=== PATIENT | female | born 1955 | race Hispanic/Latino ===

== ENCOUNTER 2017-12-19 13:27 | Emergency (ER) | payer OTHER ==
[2017-12-19] MEDS ORDERED: Sodium Chloride 0.9% 500 ML IV ONE (15:16)
[2017-12-19] MEDS ORDERED: Sodium Chloride 0.9% 1,000 ML ONE (15:25)
[2017-12-19 15:45] LABS: BASO # 0.1 K/uL (0.0-0.2); BASO % 0.5 % (0.0-2.0); EOS % 0.2 % (0.0-4.0); HEMOGLOBIN 15.7 g/dL (11.0-16.0); LYMPH # 1.9 K/uL (1.0-4.3); LYMPH % 12.7 % (20.0-40.0); MEAN CELL VOLUME 85.4 fL (81.0-99.0); MEAN CORPUSCULAR HEMOGLOBIN 29.1 pg (27.0-31.0); MEAN CORPUSCULAR HGB CONC 34.1 g/dL (33.0-37.0); MEAN PLATELET VOLUME 7.8 fL (7.2-11.7); MONO # 0.7 K/uL (0.0-0.8); MONO % 4.8 % (0.0-10.0); NEUT # 12.1 K/uL (1.8-7.0); NEUT % 81.8 % (50.0-75.0); NRBC % 0.1 % (0.0-2.0); RBC 5.4 Mil/uL (3.80-5.20); RED CELL DISTRIBUTION WIDTH 13.3 % (11.5-14.5)
[2017-12-19 15:47] LABS: WHITE BLOOD COUNT 14.8 K/uL (4.8-10.8)
[2017-12-19 16:08] LABS: SQUAMOUS EPITHIAL 4 /hpf (0-5); URINE BACTERIA MOD (<OCC); URINE BILIRUBIN NEGATIVE (NEGATIVE); URINE BLOOD NEGATIVE (NEGATIVE); URINE CLARITY Hazy (Clear); URINE GLUCOSE (UA) NORMAL (Normal); URINE LEUKOCYTE ESTERASE TRACE Leu/uL (Negative); URINE NITRATE NEGATIVE (NEGATIVE); URINE PROTEIN 2+ mg/dL (NEGATIVE); URINE UROBILINOGEN NORMAL mg/dL (0.2-1.0)
[2017-12-19 16:12] LABS: ALB/GLOB RATIO 1.3 (1.0-2.1); ALBUMIN 4.3 g/dL (3.5-5.0); ALT/SGPT 29 U/L (9-52); AST/SGOT 28 U/L (14-36); BLOOD UREA NITROGEN 16 mg/dL (7-17); CALCIUM 9.8 mg/dl (8.6-10.4); GFR AFRICAN-AMERICAN > 60; GFR NON-AFRICAN AMERICAN > 60; LIPASE 246 U/L (23-300)
[2017-12-19 16:15] LABS: URINE COLOR YELLOW (YELLOW)
[2017-12-19 17:06] VITALS: BP 131/70; PULSE 82; RESP 20; TEMP 99
[2017-12-19 17:07] VITALS: O2SAT 97
--- NOTE | 2017-12-19 17:07 | C.PDOC ---
History Of Present Illness 62 year old female presents to the ER with complaints of three episodes of nausea, vomiting, and diarrhea each. The patient is denies any abdominal pain, fever, dysuria, and has no known sick contact. Time Seen by Provider: 12/19/17 15:15 Chief Complaint (Nursing): GI Problem History Per: Patient History/Exam Limitations: no limitations Onset/Duration Of Symptoms: Intermittent Episodes (3) Current Symptoms Are (Timing): Better Severity: Mild Quality Of Discomfort: "Pain" (abdominal pain) Associated Symptoms: Nausea, Vomiting, Diarrhea. denies: Urinary Symptoms ( dysuria) Additional History Per: Patient Past Medical History Reviewed: Historical Data, Nursing Documentation, Vital Signs Vital Signs: Last Vital Signs Temp 99 F 12/19/17 17:05 Pulse 82 12/19/17 17:05 Resp 20 12/19/17 17:05 BP 131/70 12/19/17 17:05 Pulse Ox 97 12/19/17 18:24 - Medical History PMH: No Chronic Diseases Surgical History: No Surg Hx Family History: States: No Known Family Hx - Social History Hx Tobacco Use: Yes Hx Alcohol Use: Yes Hx Substance Use: No - Immunization History Hx Tetanus Toxoid Vaccination: No Hx Influenza Vaccination: No Hx Pneumococcal Vaccination: No Review Of Systems Except As Marked, All Systems Reviewed And Found Negative. Constitutional: Negative for: Fever Gastrointestinal: Positive for: Nausea, Vomiting, Diarrhea. Negative for: Abdominal Pain Genitourinary: Negative for: Dysuria Physical Exam - Physical Exam Appears: Other (Mildly uncomfortable) Skin: Normal Color Head: Normacephalic Oral Mucosa: Moist (moist mucous membrane) Cardiovascular: Rhythm Regular Respiratory: Normal Breath Sounds Gastrointestinal/Abdominal: Soft, Tenderness (mild epigastrium tenderness ), No Guarding, No Rebound ED Course And Treatment - Laboratory Results Result Diagrams: 12/19/17 15:41 12/19/17 15:41 O2 Sat by Pulse Oximetry: 97 (RA) Progress Note: Labs reviewed within normal limits, was also administered IV fluids. Patient reported feeling better and is stable for discharge home. Disposition Counseled Patient/Family Regarding: Studies Performed, Diagnosis, Need For Followup, Rx Given - Disposition Referrals: Jaime Woo MD [Staff Provider] - Disposition: HOME/ ROUTINE Disposition Time: 17:05 Condition: STABLE Additional Instructions: FOLLOW UP WITH YOUR DOCTOR IN 1-2 DAYS DRINK PLENTY OF CLEAR FLUIDS USE MEDICATIONS NEEDED RETURN TO ER IF SYMPTOMS WORSEN Prescriptions: Dicyclomine [Bentyl] 20 mg PO Q6 PRN #12 tab PRN Reason: ABDOMINAL CRAMPING Ondansetron [Zofran Odt] 4 mg PO Q8 PRN #10 odt PRN Reason: Nausea/Vomiting Instructions: Viral Gastroenteritis Forms: [employer] (Dutch) Print Language: SAMI - POA Present On Arrival: None - Clinical Impression Clinical Impression: Gastroenteritis - Scribe Statement The provider has reviewed the documentation as recorded by the Neo Pedroza Thelma Provider Attestation: All medical record entries made by the Neo were at my direction and personally dictated by me. I have reviewed the chart and agree that the record accurately reflects my personal performance of the history, physical exam, medical decision making, and the department course for this patient. I have also personally directed, reviewed, and agree with the discharge instructions and disposition.
== END 2017-12-19 17:12 | disposition home or self-care (01) ==
LOC: C.ER 13:27
DX: K52.9 Noninfective gastroenteritis and colitis, unspecified (principal)
CPT/HCPCS: 80053; 81001; 83690; 85025; 96361; 96374; 99284; J2405; J7040

== ENCOUNTER 2017-12-20 18:58 | Inpatient (IN) | payer OTHER ==
--- NOTE | 2017-12-20 19:37 | C.PDOC ---
History Of Present Illness Patient seen here yesterday for similar complaints. Has continued to have emesis and some abdominal pain , unrelieved with zofran. Not tolerating PO. No f /c. Dull, cramping abdominal discomfort Time Seen by Provider: 12/20/17 19:37 Chief Complaint (Nursing): Abdominal Pain History Per: Patient History/Exam Limitations: no limitations Onset/Duration Of Symptoms: Days Current Symptoms Are (Timing): Still Present Context: Food Severity: Moderate Pain Scale Rating Of: 4 Location Of Pain/Discomfort: Diffuse Radiation Of Pain To:: None Quality Of Discomfort: Dull, Cramping Associated Symptoms: Nausea, Vomiting. denies: Fever, Chills, Diarrhea Exacerbating Factors: Food Alleviating Factors: None Last Bowel Movement: Today Recent travel outside of the [place]: No Additional History Per: Patient Past Medical History Reviewed: Historical Data, Nursing Documentation, Vital Signs Vital Signs: Last Vital Signs Temp 97.3 F L 12/20/17 19:05 Pulse 107 H 12/20/17 21:14 Resp 24 12/20/17 21:14 BP 157/71 H 12/20/17 21:14 Pulse Ox 98 12/20/17 22:56 Family History: States: No Known Family Hx - Social History Hx Tobacco Use: Yes Hx Alcohol Use: No Hx Substance Use: No - Immunization History Hx Tetanus Toxoid Vaccination: No Hx Influenza Vaccination: No Hx Pneumococcal Vaccination: No Review Of Systems Constitutional: Negative for: Fever, Chills ENT: Negative for: Throat Pain Cardiovascular: Negative for: Chest Pain Respiratory: Negative for: Shortness of Breath Gastrointestinal: Positive for: Nausea, Vomiting, Abdominal Pain Genitourinary: Negative for: Dysuria Musculoskeletal: Negative for: Back Pain Skin: Negative for: Rash Neurological: Negative for: Weakness Psych: Negative for: Anxiety Physical Exam - Physical Exam Appears: Non-toxic Skin: Warm, Dry Oral Mucosa: Dry Neck: Supple Chest: Symmetrical Cardiovascular: Rhythm Regular Respiratory: No Rales, No Rhonchi, No Wheezing Gastrointestinal/Abdominal: Soft, Tenderness, Distention (mild), No Guarding, No Rebound Back: No CVA Tenderness Extremity: Normal ROM Extremity: Bilateral: Atraumatic Neurological/Psych: Oriented x3 Gait: Steady ED Course And Treatment - Laboratory Results Result Diagrams: 12/20/17 19:57 12/20/17 19:57 ECG: Interpreted By Me, Viewed By Me ECG Rhythm: Sinus Rhythm (64), Nonspecific Changes O2 Sat by Pulse Oximetry: 98 Pulse Ox Interpretation: Normal - CT Scan/US CT A/P Other Rad Studies (CT/US): Read By Radiologist, Radiology Report Reviewed CT/US Interpretation: IMPRESSION: Free intraperitoneal air suggest perforated hollow viscus; ascites in the abdomen and. pelvis; gastroenterocolitis; multiple hepatic cysts; possible left adnexal mass Progress Note: 11pm called the surgical assistant . will come and see the ot in the ed. spoke with the pt regarding her diagnosis and posible need for surgery Critical Care Time - Critical Care Note Total Time (in mins): 30 Documented critical care: time excludes all time spent performing seperately billable procedures. Disposition Discussed With Dr.: Luciano Patten Comment: accepted the pt onhis service and took over the care at 11:30 PM Doctor Will See Patient In The: ED Counseled Patient/Family Regarding: Studies Performed, Diagnosis - Disposition Disposition: HOSPITALIZED Disposition Time: 19:37 Condition: GUARDED Forms: [employer] (Armenian) - POA Present On Arrival: Poor Glycemic Control - Clinical Impression Clinical Impression: Abdominal pain, Nausea, Vomiting, Ascites, Perforated abdominal viscus Decision To Admit - Pt Status Changed To: Hospital Disposition Of: Inpatient - Admit Certification Admit to Inpatient:: After my assessment, the patient will require hospitalization for at least two midnights. This is because of the severity of symptoms shown, intensity of services needed, and/or the medical risk in this patient being treated as an outpatient. - InPatient: Physician Admission Certification:: After my assessment, the patient will require hospitalization for at least two midnights. This is because of the severity of symptoms shown, intensity of services needed, and/or the medical risk in this patient being treated as an outpatient. - . Bed Request Type: Regular Admitting Physician: Luciano Patten Patient Diagnosis: Abdominal pain, Nausea, Vomiting, Ascites, Perforated abdominal viscus
[2017-12-20] MEDS ORDERED: Sodium Chloride 0.9% 2,000 ML IV ONE (19:53)
[2017-12-20 20:02] LABS: BASO # 0.1 K/uL (0.0-0.2); BASO % 0.4 % (0.0-2.0); EOS # 0.1 K/uL (0.0-0.7); EOS % 0.2 % (0.0-4.0); HEMOGLOBIN 15.6 g/dL (11.0-16.0); LYMPH # 1.6 K/uL (1.0-4.3); MEAN CELL VOLUME 85.7 fL (81.0-99.0); MEAN CORPUSCULAR HEMOGLOBIN 28.6 pg (27.0-31.0); MEAN CORPUSCULAR HGB CONC 33.3 g/dL (33.0-37.0); MEAN PLATELET VOLUME 8.1 fL (7.2-11.7); MONO # 1.3 K/uL (0.0-0.8); MONO % 5.6 % (0.0-10.0); NEUT # 20.4 K/uL (1.8-7.0); NEUT % 86.8 % (50.0-75.0); NRBC % 0.1 % (0.0-2.0); PLATELET COUNT 289 K/uL (130-400); RBC 5.47 Mil/uL (3.80-5.20); RED CELL DISTRIBUTION WIDTH 13.5 % (11.5-14.5); WHITE BLOOD COUNT 23.5 K/uL (4.8-10.8)
[2017-12-20] MEDS ORDERED: metroNIDAZOLE IV 500 mg/100 ml 500 MG/100 ML BAG ONE (20:14)
[2017-12-20] MEDS ORDERED: metroNIDAZOLE IV 500 mg/100 ml 500 MG/100 ML BAG IVPB SCH (20:15)
[2017-12-20 20:18] LABS: ALB/GLOB RATIO 1.2 (1.0-2.1); ALBUMIN 4.4 g/dL (3.5-5.0); ALT/SGPT 24 U/L (9-52); AST/SGOT 24 U/L (14-36); BLOOD UREA NITROGEN 35 mg/dL (7-17); CALCIUM 9.8 mg/dl (8.6-10.4); GFR AFRICAN-AMERICAN > 60; GFR NON-AFRICAN AMERICAN 56; LIPASE 44 U/L (23-300)
[2017-12-20] MEDS ORDERED: Iodixanol 320 MG/ML 100 ML BOTTLE IV ONE (20:21)
[2017-12-20 20:36] LABS: VENOUS BLOOD GAS BASE EXCESS 9.2 mmol/L (0.0-2.0); VENOUS BLOOD GAS PCO2 64 mmHg (40-60); VENOUS BLOOD GAS PO2 22 mm/Hg (30-55); VENOUS BLOOD PH 7.37 (7.32-7.43)
[2017-12-20] MEDS ORDERED: Sodium Chloride 0.9% 1,000 ML IV ONE (20:43)
[2017-12-20] MEDS ORDERED: Vancomycin 1 GM 1 GM/250 ML BAG IVPB SCH (20:45)
[2017-12-20] MEDS ORDERED: Vancomycin 1 gm/NS 200 ml 1 GM/200 ML BAG IVPB ONE (21:00)
[2017-12-20 21:28] LABS: LYMPHOCYTE 13 % (20-40); MONOCYTE 2 % (0-10); NEUTROPHIL 85 % (50-75); PLATELET ESTIMATE NORMAL (NORMAL); TOTAL CELLS COUNTED 100
--- NOTE | 2017-12-20 22:52 | CT ---
EXAM: CT Abdomen and Pelvis With Intravenous Contrast EXAM DATE/TIME: 12/20/2017 7:54 PM CLINICAL HISTORY: 62 years old, female; Pain; Abdominal pain; Flank; Right upper quadrant (ruq); Additional info: Abd pain TECHNIQUE: Axial computed tomography images of the abdomen and pelvis with intravenous contrast. All CT scans at this facility use one or more dose reduction techniques, viz.: automated exposure control; ma/kV adjustment per patient size (including targeted exams where dose is matched to indication; i.e. head); or iterative reconstruction technique. Coronal and sagittal reformatted images were created and reviewed. CONTRAST: 100 mL of visipaque 320 administered intravenously. COMPARISON: There are no prior studies for comparison. FINDINGS: Lower thorax: heart size is normal. There is moderate sized hiatal hernia. There is atelectasis and scarring at the lung bases. ABDOMEN: Liver: There are multiple low-attenuation lesions throughout the liver. Largest are consistent with cysts. Smaller lesions are too small to characterize. Gallbladder and bile ducts: Gallbladder is partially distended. Common duct is dilated, although the millimeters in diameter. There is tapering at the pancreas. Pancreas: There is mild prominence of pancreatic head relative to the body and tail of the pancreas. There is prominence of the distal pancreatic duct, report 6 mm in diameter. Spleen: unremarkable Adrenals: unremarkable Kidneys and ureters: Left kidney is in the expected flank location. The right kidney is in the low flank. Stomach and bowel: Stomach is partially distended with an air-fluid level. There is enhancement of the gastric wall. There are mildly prominent. Gastric vessels. There is antral and proximal duodenal wall and fold thickening. Rotation is normal. Diffuse small bowel wall and fold thickening. There is terminal ileal wall and fold thickening. Appendix is unremarkable. There is asymmetric colonic wall thickening. There is diverticulosis. Appendix: See stomach and bowel PELVIS: Bladder: The bladder is almost empty. Uterus is unremarkable. There is prominence of the left with possible adnexal mass.Vascular structures are unremarkable. Reproductive: See above. ABDOMEN and PELVIS: Intraperitoneal space: There is ascites in the abdomen and pelvis. There is free intraperitoneal air in the upper abdomen. Bones/joints: There are no acute osseous abnormalities. Soft tissues: unremarkable Vasculature: See above. Lymph nodes: There is no pathologic adenopathy. IMPRESSION: Free intraperitoneal air suggest perforated hollow viscus; ascites in the abdomen and pelvis; gastroenterocolitis; multiple hepatic cysts; possible left adnexal mass Additional nonemergent findings as described above.
[2017-12-20] MEDS ORDERED: Sodium Chloride 0.9% 1,000 ML IV SCH (23:45)
[2017-12-20] MEDS ORDERED: Morphine 4 MG/ML VIAL IVP PRN (23:56)
--- NOTE | 2017-12-21 00:08 | CP.PCM.HP ---
History of Present Illness - History of Present Illness History of Present Illness: Surgery H&P- Dr. Patten 62F pmhx of duodenal ulcers presents to [facility] ED w/ abdominal pain, nausea, and vomiting for 1 day. patient has not had abd pain like this before. no alleviating symptoms. Subjective fevers, no chills. Denies change in urinary habits, bright red blood per rectum, sudden unexplained weight loss or weight gain, diarrhea, recent sick contacts PMH: dudodenal ulcers PSH: bilateral brest biopsy (benign) ALL: PCN SocialHx: Tobacco use 1/2 ppd for > 30 years, occasional ETOH, denies recreational drug use Present on Admission - Present on Admission Any Indicators Present on Admission: No Review of Systems - Review of Systems All systems: reviewed and no additional remarkable complaints except - Constitutional Constitutional: As Per HPI Past Patient History - Past Social History Smoking Status: Light Smoker < 10 Cigarettes Daily - PSYCHIATRIC Hx Substance Use: No - SURGICAL HISTORY Hx Surgeries: Yes Hx Breast Biopsy: Yes - ANESTHESIA Hx Anesthesia: Yes Hx Anesthesia Reactions: No Hx Malignant Hyperthermia: No Meds Allergies/Adverse Reactions: Allergies Allergy/AdvReac Type Severity Reaction Status Date / Time Penicillins Allergy Verified 12/20/17 19:18 Physical Exam - Constitutional Appears: Non-toxic, No Acute Distress - Head Exam Head Exam: ATRAUMATIC - Eye Exam Eye Exam: EOMI. absent: Scleral icterus - ENT Exam ENT Exam: Mucous Membranes Moist - Respiratory Exam Respiratory Exam: NORMAL BREATHING PATTERN. absent: Accessory Muscle Use, Respiratory Distress - Cardiovascular Exam Cardiovascular Exam: +S1, +S2. absent: Bradycardia, Tachycardia - GI/Abdominal Exam GI & Abdominal Exam: Distended, Firm, Guarding, Rigid, Tenderness. absent: Hernia - Neurological Exam Neurological exam: Alert, Oriented x3 - Skin Skin Exam: Intact, Warm Results - Vital Signs Recent Vital Signs: Last Vital Signs Temp 97.3 F L 12/20/17 19:05 Pulse 107 H 12/20/17 21:14 Resp 24 12/20/17 21:14 BP 157/71 H 12/20/17 21:14 Pulse Ox 98 12/20/17 23:49 - Labs Result Diagrams: 12/20/17 19:57 12/20/17 19:57 Labs: Laboratory Results - last 24 hr 12/20/17 12/20/17 12/20/17 19:57 19:57 20:32 WBC 23.5 H D RBC 5.47 H Hgb 15.6 Hct 46.9 MCV 85.7 MCH 28.6 MCHC 33.3 RDW 13.5 Plt Count 289 MPV 8.1 Neut % (Auto) 86.8 H Lymph % (Auto) 7.0 L [place] % (Auto) 5.6 Eos % (Auto) 0.2 Baso % (Auto) 0.4 Neut # (Auto) 20.4 H Lymph # (Auto) 1.6 [place] # (Auto) 1.3 H Eos # (Auto) 0.1 Baso # (Auto) 0.1 Neutrophils % (Manual) 85 H Lymphocytes % (Manual) 13 L Monocytes % (Manual) 2 Platelet Estimate Normal pO2 22 L VBG pH 7.37 VBG pCO2 64 H VBG HCO3 30.4 VBG Total CO2 39.0 H VBG O2 Sat (Calc) 28.0 L VBG Base Excess 9.2 H VBG Potassium 2.3 L* Glucose 285 H Lactate 5.5 H* Crit Value Called To Dr. holcomb Crit Value Called By Arjun christiansen Crit Value Read Back Y Blood Gas Notified Time 2035 Sodium 137 141.0 Potassium 2.6 L Chloride 86 L 93.0 L Carbon Dioxide 29 Anion Gap 24 H BUN 35 H Creatinine 1.0 Est GFR ( Amer) > 60 Est GFR (Non-Af Amer) 56 Random Glucose 260 H Calcium 9.8 Total Bilirubin 0.5 AST 24 ALT 24 Alkaline Phosphatase 74 Total Protein 7.9 Albumin 4.4 Globulin 3.5 Albumin/Globulin Ratio 1.2 Lipase 44 Venous Blood Potassium 2.3 L* Assessment & Plan - Assessment and Plan (Free Text) Assessment: 62F w/ acute abdomen, free air in the abdomen Plan: - NPO - IVF/Abx - CXR/EKG - NGT & [place] - strict I/O - type and cross 2u - anti-emetic pain control PRN - OR for exploratory laparotomy - d/w surgical attending PGY1
[2017-12-21] MEDS: Sodium Chloride 0.9% 1,000 ML IV SCH ×4 (00:20→16:28)
[2017-12-21] MEDS: Ciprofloxacin 400mg/200ml D5W 400 MG/200 ML BAG IVPB SCH ×2 (00:56→12:47)
[2017-12-21] MEDS ORDERED: Midazolam 2 MG/2 ML VIAL ONE (01:04)
[2017-12-21] MEDS ORDERED: Propofol 10 mg/ml Inj (20 ML) ONE (01:04)
[2017-12-21] MEDS ORDERED: Etomidate 20 mg/10ml Inj IV ONE (01:10)
[2017-12-21] MEDS ORDERED: Succinylcholine Chloride 20 mg/ml Syr (5 ml) IV ONE (01:10)
[2017-12-21 01:36] LABS: SQUAMOUS EPITHIAL < 1 /hpf (0-5); URINE BACTERIA RARE (<OCC); URINE BILIRUBIN NEGATIVE (NEGATIVE); URINE BLOOD 2+ (NEGATIVE); URINE CLARITY Hazy (Clear); URINE COLOR Yellow (YELLOW); URINE GLUCOSE (UA) 1+ mg/dL (Normal); URINE LEUKOCYTE ESTERASE NEG Leu/uL (Negative); URINE PROTEIN 2+ mg/dL (NEGATIVE); URINE UROBILINOGEN NORMAL mg/dL (0.2-1.0)
[2017-12-21] MEDS ORDERED: Neostigmine Methylsulfate 3mg/3ml Syringe IV ONE (02:04)
--- NOTE | 2017-12-21 02:42 | PCM.SURG1 ---
Surgeon's Initial Post Op Note - Surgeon's Notes Surgeon: Dr. Patten Food And Beverage Lead: PGY1 Type of Anesthesia: General Endo Pre-Operative Diagnosis: Acute abdomen; Free air in abdomen Operative Findings: fluid in abdomen. perforated anterior gastric ulcer measuring approx 1.5cm. for details see op note Post-Operative Diagnosis: Perforated gastric ulcer Operation Performed: Exploratory laparotomy w/ alison patch Specimen/Specimens Removed: none Estimated Blood Loss: EBL {In ML}: 25 Blood Products Given: N/A Drains Used: Da Date of Surgery/Procedure: 12/21/17 Time of Surgery/Procedure: 02:43
[2017-12-21 04:27] LABS: INR 1.6; PROTHROMBIN TIME 18.2 SECONDS (9.7-12.2)
[2017-12-21 04:39] LABS: ALB/GLOB RATIO 1.1 (1.0-2.1); ALBUMIN 2.2 g/dL (3.5-5.0); ALT/SGPT 29 U/L (9-52); AST/SGOT 21 U/L (14-36); BLOOD UREA NITROGEN 26 mg/dL (7-17); GFR AFRICAN-AMERICAN > 60; GFR NON-AFRICAN AMERICAN > 60
[2017-12-21 04:54] LABS: BASO % 0.1 % (0.0-2.0); EOS % 0.1 % (0.0-4.0); HEMOGLOBIN 15.2 g/dL (11.0-16.0); LYMPH # 0.5 K/uL (1.0-4.3); LYMPH % 22.9 % (20.0-40.0); MEAN CELL VOLUME 85.1 fL (81.0-99.0); MEAN CORPUSCULAR HEMOGLOBIN 28.9 pg (27.0-31.0); MEAN PLATELET VOLUME 7.7 fL (7.2-11.7); MONO # 0.2 K/uL (0.0-0.8); MONO % 10.9 % (0.0-10.0); NEUT # 1.5 K/uL (1.8-7.0); NRBC % 0.1 % (0.0-2.0); RBC 5.25 Mil/uL (3.80-5.20)
[2017-12-21 04:55] LABS: WHITE BLOOD COUNT 2.2 K/uL (4.8-10.8)
[2017-12-21] MEDS: metroNIDAZOLE IV 500 mg/100 ml 500 MG/100 ML BAG IVPB SCH ×3 (05:02→21:56)
[2017-12-21] MEDS ORDERED: Albumin Human 25% (12.5 gm/50 ml) IV ONE (06:33)
--- NOTE | 2017-12-21 07:59 | RAD ---
Chest x-ray single frontal view History: NG tube placement. Comparison: 12/21/2017 Findings: NG tube extending into the stomach. Biapical pleural thickening with upper lobe granulomatous changes. Venous congestion. Diffuse increased interstitial lung markings. Calcification at the aortic knob. Degenerative changes in the spine and shoulders. Multiple overlying clips wire seen projecting over upper abdomen. Impression: NG tube extending into the stomach. Biapical pleural thickening with upper lobe granulomatous changes. Venous congestion. Diffuse increased interstitial lung markings. Calcification at the aortic knob.
[2017-12-21 10:03] LABS: MEAN CELL VOLUME 85.4 fL (81.0-99.0); MEAN CORPUSCULAR HEMOGLOBIN 29.5 pg (27.0-31.0); MEAN CORPUSCULAR HGB CONC 34.5 g/dL (33.0-37.0); MEAN PLATELET VOLUME 7.8 fL (7.2-11.7); RBC 4.49 Mil/uL (3.80-5.20); RED CELL DISTRIBUTION WIDTH 13.1 % (11.5-14.5)
--- NOTE | 2017-12-21 10:11 | CP.PCM.PN ---
Subjective - Date & Time of Evaluation Date of Evaluation: 12/21/17 Time of Evaluation: 09:15 - Subjective Subjective: General surgery progress note for Dr. Naveed Esquivel, PGY-1 Pt S & E at bedside. Pt resting comfortably in bed. Reports dry mouth/sore throat. Denies ab pain , N & V, F & C. Objective - Vital Signs/Intake and Output Vital Signs (last 24 hours): Temp Pulse Resp BP Pulse Ox 99 F 101 H 25 H 89/46 L 94 L 12/21/17 01:12 12/21/17 08:40 12/21/17 08:40 12/21/17 08:36 12/21/17 08:40 Intake and Output: 12/21/17 12/21/17 06:59 18:59 Intake Total 1680 120 Output Total 320 80 Balance 1360 40 - Medications Medications: Current Medications Benzocaine/Menthol (Cepacol Sore Throat) 1 home MT Q2H PRN PRN Reason: Sore Throat Enoxaparin Sodium (Lovenox) 40 mg SC DAILY [facility] Metronidazole (Flagyl) 500 mg in 100 mls @ 100 mls/hr IVPB STAT [facility] Last Admin: 12/21/17 05:00 Dose: 100 mls/hr Sodium Chloride (Sodium Chloride 0.9%) 1,000 mls @ 120 mls/hr IV .Q8H20M [facility] Last Admin: 12/21/17 09:41 Dose: Not Given Ciprofloxacin (Cipro 400mg/200ml Dsw) 400 mg in 200 mls @ 133 mls/hr IVPB Q12H [facility] Last Admin: 12/21/17 00:56 Dose: 133 mls/hr Metronidazole (Flagyl) 500 mg in 100 mls @ 100 mls/hr IVPB Q8 [facility] Last Admin: 12/21/17 05:02 Dose: Not Given Acetaminophen (Ofirmev) 100 mls @ 400 mls/hr IV Q8 [facility] Stop: 12/23/17 06:01 Last Admin: 12/21/17 04:00 Dose: 400 mls/hr Potassium Chloride (Potassium Chloride 20 Meq/100 Ml) 20 meq in 100 mls @ 50 mls/hr IVPB ONCE ONE Stop: 12/21/17 11:14 Last Admin: 12/21/17 09:40 Dose: 50 mls/hr Morphine Sulfate (Morphine) 4 mg IVP Q4H PRN PRN Reason: Pain, moderate (4-7) Nicotine (Nicoderm Cq) 1 patch TD DAILY [facility] Ondansetron HCl (Zofran Inj) 4 mg IVP Q4H PRN PRN Reason: Nausea/Vomiting Pantoprazole Sodium (Protonix Inj) 40 mg IVP Q12H [facility] Pneumococcal Polyvalent Vaccine (Pneumovax 23 Vaccine) 0.5 ml SC .ONCE ONE Stop: 12/23/17 10:01 - Labs Labs: 12/21/17 04:49 12/21/17 04:28 PT 18.2 SECONDS (9.7-12.2) H 12/21/17 04:16 INR 1.6 12/21/17 04:16 APTT 31 SECONDS (21-34) 12/21/17 04:16 - Constitutional Appears: Non-toxic, No Acute Distress - Head Exam Head Exam: ATRAUMATIC, NORMAL INSPECTION, NORMOCEPHALIC Additional comments: NGT in place, scant dark green output in tubing - Eye Exam Eye Exam: EOMI, Normal appearance - ENT Exam ENT Exam: Mucous Membranes Dry - Neck Exam Neck Exam: Full ROM, Normal Inspection - Respiratory Exam Respiratory Exam: NORMAL BREATHING PATTERN - Cardiovascular Exam Cardiovascular Exam: REGULAR RHYTHM, +S1, +S2 - GI/Abdominal Exam GI & Abdominal Exam: Soft, Tenderness (minimal, over surgical incision, dressing c/d/i, drain with ~20 cc serosanguinous output). absent: Distended, Firm, Guarding, Rigid, Mass, Rebound - Extremities Exam Extremities Exam: Normal Inspection - Neurological Exam Neurological Exam: Alert, Awake, CN II-XII Intact, Oriented x3 - Psychiatric Exam Psychiatric exam: Normal Affect, Normal Mood - Skin Skin Exam: Dry, Intact, Normal Color, Warm Assessment and Plan - Assessment and Plan (Free Text) Assessment: 62F POD#0 s/p ex lap w/alison patch due to perforated gastric ulcer Plan: NPO Advance to [facility] for dinner Will d/c NGT before dinner Cont pain control Cepacol Cont IV Abx Nicotine patch Anti-emetic PRN K 3.1-replaced OOBTC Encourage IS use D/C kevin GI/DVT ppx Cont ICU care DW attending [place], PGY-1
[2017-12-21 10:12] LABS: HEMOGLOBIN 13.2 g/dL (11.0-16.0)
[2017-12-21 10:13] LABS: WHITE BLOOD COUNT 6.1 K/uL (4.8-10.8)
--- NOTE | 2017-12-21 10:18 | CP.PCM.CON ---
History of Present Illness - History of Present Illness History of Present Illness: Postoperative management History of present illness: 62-year-old female with a history of hypertension, chronic smoker, admitted to the hospital with acute abdominal pain. Patient underwent a laparotomy, and found to have perforated duodenal ulcer, status post surgical intervention done last night. Patient now feeling okay, feeling slightly better, pain in the abdomen noted, denies any nausea, NG tube present. Past medical history: Duodenal ulcer, hypertension, chronic smoker Surgical history bilateral breast surgery in the past Allergies allergic to penicillin Patient is a smoker, half pack per day for more than 30 years, alcoholic use occasionally. Review of systems: Currently patient is comfortable, not in any distress, mild low blood pressure noted. Urine output is slightly on the low side. 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 Currently on antibiotic, IV fluid. Clinically stable. continue the current treatment, can be transferred to floor.. Past Patient History - Past Medical History & Family History Past Medical History?: Yes - Past Social History Smoking Status: Light Smoker < 10 Cigarettes Daily - CARDIAC Hx Cardiac Disorders: No - PULMONARY Hx Respiratory Disorders: No - NEUROLOGICAL Hx Neurological Disorder: No - HEENT Hx HEENT Problems: No - RENAL Hx Chronic Kidney Disease: No - ENDOCRINE/METABOLIC Hx Endocrine Disorders: No - HEMATOLOGICAL/ONCOLOGICAL Hx Blood Disorders: No - INTEGUMENTARY Hx Dermatological Problems: No - MUSCULOSKELETAL/RHEUMATOLOGICAL Hx Musculoskeletal Disorders: No - GASTROINTESTINAL Hx Gastrointestinal Disorders: Yes Hx Ulcer: Yes (duodenal) - PSYCHIATRIC Hx Psychophysiologic Disorder: No Hx Substance Use: Yes (smoker 1/2ppd x30yrs) - SURGICAL HISTORY Hx Surgeries: Yes Hx Breast Biopsy: Yes - ANESTHESIA Hx Anesthesia: Yes Hx Anesthesia Reactions: No Hx Malignant Hyperthermia: No Meds Allergies/Adverse Reactions: Allergies Allergy/AdvReac Type Severity Reaction Status Date / Time Penicillins Allergy RASH Verified 12/21/17 04:43 - Medications Medications: Current Medications Benzocaine/Menthol (Cepacol Sore Throat) 1 home MT Q2H PRN PRN Reason: Sore Throat Enoxaparin Sodium (Lovenox) 40 mg SC DAILY [facility] Metronidazole (Flagyl) 500 mg in 100 mls @ 100 mls/hr IVPB STAT [facility] Last Admin: 12/21/17 05:00 Dose: 100 mls/hr Sodium Chloride (Sodium Chloride 0.9%) 1,000 mls @ 120 mls/hr IV .Q8H20M [facility] Last Admin: 12/21/17 09:41 Dose: Not Given Ciprofloxacin (Cipro 400mg/200ml Dsw) 400 mg in 200 mls @ 133 mls/hr IVPB Q12H [facility] Last Admin: 12/21/17 00:56 Dose: 133 mls/hr Metronidazole (Flagyl) 500 mg in 100 mls @ 100 mls/hr IVPB Q8 [facility] Last Admin: 12/21/17 05:02 Dose: Not Given Acetaminophen (Ofirmev) 100 mls @ 400 mls/hr IV Q8 [facility] Stop: 12/23/17 06:01 Last Admin: 12/21/17 04:00 Dose: 400 mls/hr Potassium Chloride (Potassium Chloride 20 Meq/100 Ml) 20 meq in 100 mls @ 50 mls/hr IVPB ONCE ONE Stop: 12/21/17 11:14 Last Admin: 12/21/17 09:40 Dose: 50 mls/hr Morphine Sulfate (Morphine) 4 mg IVP Q4H PRN PRN Reason: Pain, moderate (4-7) Nicotine (Nicoderm Cq) 1 patch TD DAILY [facility] Ondansetron HCl (Zofran Inj) 4 mg IVP Q4H PRN PRN Reason: Nausea/Vomiting Pantoprazole Sodium (Protonix Inj) 40 mg IVP Q12H [facility] Pneumococcal Polyvalent Vaccine (Pneumovax 23 Vaccine) 0.5 ml SC .ONCE ONE Stop: 12/23/17 10:01 Results - Vital Signs Recent Vital Signs: Last Vital Signs Temp 99 F 12/21/17 01:12 Pulse 101 H 12/21/17 08:40 Resp 25 H 12/21/17 08:40 BP 89/46 L 12/21/17 08:36 Pulse Ox 94 L 12/21/17 08:40 - Labs Result Diagrams: 12/21/17 09:54 12/21/17 04:28 Labs: Laboratory Results - last 24 hr 12/20/17 12/20/17 12/20/17 19:57 19:57 20:32 WBC 23.5 H D RBC 5.47 H Hgb 15.6 Hct 46.9 MCV 85.7 MCH 28.6 MCHC 33.3 RDW 13.5 Plt Count 289 MPV 8.1 Neut % (Auto) 86.8 H Lymph % (Auto) 7.0 L Gilchrist % (Auto) 5.6 Eos % (Auto) 0.2 Baso % (Auto) 0.4 Neut # (Auto) 20.4 H Lymph # (Auto) 1.6 Gilchrist # (Auto) 1.3 H Eos # (Auto) 0.1 Baso # (Auto) 0.1 Neutrophils % (Manual) 85 H Lymphocytes % (Manual) 13 L Monocytes % (Manual) 2 Differential Comment Platelet Estimate Normal PT INR APTT pO2 22 L VBG pH 7.37 VBG pCO2 64 H VBG HCO3 30.4 VBG Total CO2 39.0 H VBG O2 Sat (Calc) 28.0 L VBG Base Excess 9.2 H VBG Potassium 2.3 L* Glucose 285 H Lactate 5.5 H* Crit Value Called To Dr. holcomb Crit Value Called By Arjun christiansen Crit Value Read Back Y Blood Gas Notified Time 2035 Sodium 137 141.0 Potassium 2.6 L Chloride 86 L 93.0 L Carbon Dioxide 29 Anion Gap 24 H BUN 35 H Creatinine 1.0 Est GFR ( Amer) > 60 Est GFR (Non-Af Amer) 56 Random Glucose 260 H Lactic Acid Calcium 9.8 Total Bilirubin 0.5 AST 24 ALT 24 Alkaline Phosphatase 74 Total Protein 7.9 Albumin 4.4 Globulin 3.5 Albumin/Globulin Ratio 1.2 Lipase 44 Venous Blood Potassium 2.3 L* Urine Color Urine Clarity Urine pH Ur Specific [place] Urine Protein Urine Glucose (UA) Urine Ketones Urine Blood Urine Nitrate Urine Bilirubin Urine Urobilinogen Ur Leukocyte Esterase Urine WBC (Auto) Urine RBC (Auto) Ur Squamous Epith Cells Urine Bacteria Blood Type Blood Type Confirm Antibody Screen 12/21/17 12/21/17 12/21/17 01:06 01:30 04:16 WBC RBC Hgb Hct MCV MCH MCHC RDW Plt Count MPV Neut % (Auto) Lymph % (Auto) Gilchrist % (Auto) Eos % (Auto) Baso % (Auto) Neut # (Auto) Lymph # (Auto) Gilchrist # (Auto) Eos # (Auto) Baso # (Auto) Neutrophils % (Manual) Lymphocytes % (Manual) Monocytes % (Manual) Differential Comment Platelet Estimate PT 18.2 H INR 1.6 APTT 31 pO2 VBG pH VBG pCO2 VBG HCO3 VBG Total CO2 VBG O2 Sat (Calc) VBG Base Excess VBG Potassium Glucose Lactate Crit Value Called To Crit Value Called By Crit Value Read Back Blood Gas Notified Time Sodium Potassium Chloride Carbon Dioxide Anion Gap BUN Creatinine Est GFR ( Amer) Est GFR (Non-Af Amer) Random Glucose Lactic Acid Calcium Total Bilirubin AST ALT Alkaline Phosphatase Total Protein Albumin Globulin Albumin/Globulin Ratio Lipase Venous Blood Potassium Urine Color Yellow Urine Clarity Hazy Urine pH 5.0 Ur Specific [place] > 1.060 H Urine Protein 2+ H Urine Glucose (UA) 1+ Urine Ketones Negative Urine Blood 2+ H Urine Nitrate Negative Urine Bilirubin Negative Urine Urobilinogen Normal Ur Leukocyte Esterase Neg Urine WBC (Auto) 3 Urine RBC (Auto) 8 H Ur Squamous Epith Cells < 1 Urine Bacteria Rare Blood Type A POSITIVE Blood Type Confirm A POSITIVE Antibody Screen Negative 12/21/17 12/21/17 12/21/17 04:28 04:49 04:49 WBC 2.2 L D RBC 5.25 H Hgb 15.2 Hct 44.7 MCV 85.1 MCH 28.9 MCHC 34.0 RDW 13.0 Plt Count 193 MPV 7.7 Neut % (Auto) 66.0 Lymph % (Auto) 22.9 Gilchrist % (Auto) 10.9 H Eos % (Auto) 0.1 Baso % (Auto) 0.1 Neut # (Auto) 1.5 L Lymph # (Auto) 0.5 L Gilchrist # (Auto) 0.2 Eos # (Auto) 0.0 Baso # (Auto) 0.0 Neutrophils % (Manual) Lymphocytes % (Manual) Monocytes % (Manual) Differential Comment Platelet Estimate PT INR APTT pO2 VBG pH VBG pCO2 VBG HCO3 VBG Total CO2 VBG O2 Sat (Calc) VBG Base Excess VBG Potassium Glucose Lactate Crit Value Called To Crit Value Called By Crit Value Read Back Blood Gas Notified Time Sodium 133 Potassium 3.1 L Chloride 101 Carbon Dioxide 23 Anion Gap 12 BUN 26 H Creatinine 0.7 Est GFR ( Amer) > 60 Est GFR (Non-Af Amer) > 60 Random Glucose 94 Lactic Acid 1.9 Calcium 7.0 L Total Bilirubin 0.5 AST 21 ALT 29 Alkaline Phosphatase 35 L D Total Protein 4.3 L Albumin 2.2 L D Globulin 2.1 L Albumin/Globulin Ratio 1.1 Lipase Venous Blood Potassium Urine Color Urine Clarity Urine pH Ur Specific [place] Urine Protein Urine Glucose (UA) Urine Ketones Urine Blood Urine Nitrate Urine Bilirubin Urine Urobilinogen Ur Leukocyte Esterase Urine WBC (Auto) Urine RBC (Auto) Ur Squamous Epith Cells Urine Bacteria Blood Type Blood Type Confirm Antibody Screen 12/21/17 09:54 WBC 6.1 D RBC 4.49 Hgb 13.2 D Hct 38.3 MCV 85.4 MCH 29.5 MCHC 34.5 RDW 13.1 Plt Count 181 MPV 7.8 Neut % (Auto) Lymph % (Auto) Gilchrist % (Auto) Eos % (Auto) Baso % (Auto) Neut # (Auto) Lymph # (Auto) Gilchrist # (Auto) Eos # (Auto) Baso # (Auto) Neutrophils % (Manual) Lymphocytes % (Manual) Monocytes % (Manual) Differential Comment Platelet Estimate PT INR APTT pO2 VBG pH VBG pCO2 VBG HCO3 VBG Total CO2 VBG O2 Sat (Calc) VBG Base Excess VBG Potassium Glucose Lactate Crit Value Called To Crit Value Called By Crit Value Read Back Blood Gas Notified Time Sodium Potassium Chloride Carbon Dioxide Anion Gap BUN Creatinine Est GFR ( Amer) Est GFR (Non-Af Amer) Random Glucose Lactic Acid Calcium Total Bilirubin AST ALT Alkaline Phosphatase Total Protein Albumin Globulin Albumin/Globulin Ratio Lipase Venous Blood Potassium Urine Color Urine Clarity Urine pH Ur Specific [place] Urine Protein Urine Glucose (UA) Urine Ketones Urine Blood Urine Nitrate Urine Bilirubin Urine Urobilinogen Ur Leukocyte Esterase Urine WBC (Auto) Urine RBC (Auto) Ur Squamous Epith Cells Urine Bacteria Blood Type Blood Type Confirm Antibody Screen
[2017-12-21] MEDS: Benzocaine/Menthol (Cepacol) Lozenge MT PRN ×2 (11:09→16:51)
[2017-12-22] MEDS: Ciprofloxacin 400mg/200ml D5W 400 MG/200 ML BAG IVPB SCH ×3 (00:12→23:44)
[2017-12-22] MEDS: Sodium Chloride 0.9% 1,000 ML IV SCH ×5 (00:15→19:51)
[2017-12-22] MEDS ORDERED: guaiFENesin 100 mg/5 ml Syrup UD PO PRN (04:13)
[2017-12-22] MEDS: metroNIDAZOLE IV 500 mg/100 ml 500 MG/100 ML BAG IVPB SCH ×3 (06:21→21:10)
--- NOTE | 2017-12-22 08:17 | OP ---
PROCEDURE DATE: 12/21/2017. PREOPERATIVE DIAGNOSIS: Perforated viscous. POSTOPERATIVE DIAGNOSIS: Perforated gastric ulcer. PROCEDURE PERFORMED: Exploratory laparotomy and closure of the perforation with a Khanh patch. FINDINGS: There is a tremendous amount of fluid located in the peritoneal cavity. The anterior peritoneal wall was markedly inflamed, was hyperemic, edematous. There is a large perforation about 1.5 cm size located in the anterior wall of the distal part of the stomach underneath the liver. There are no signs of any tumor formation in the area. PROCEDURE: Under general anesthesia, the patient was prepared and draped in the usual sterile fashion. Midline incision was made just below the sideway process down to the umbilical area. Upon opening the peritoneal cavity, a large amount of air comes out and then followed by gush of large amount of fluid. The opening in the peritoneum was then made bigger and suctioning of the fluid was done. Upon partially emptying the abdomen of the fluid content, a search for the perforation was made, it was found to be in the anterior wall of the stomach quite easily. Three silk sutures were applied and a patch of omentum was placed in between the sutures before it was tied to close the perforation. The rest of the abdomen was then again suctioned out of the fluid. Then irrigated with copious amount of saline solution. Because of the large amount of fluid in the peritoneal cavity, I decided to put a drain around the area of the perforation. That brought that to a separate stab wound to the right of the incision. The abdomen was then closed in layers utilizing a continuous over and over suture of double strength #1 PDS and the skin was closed with multiple skin elsa. The estimated blood loss was about 50 mL. The patient tolerated the procedure quite well, left the operating room in good condition. Luciano Patten MD
[2017-12-22 08:25] LABS: ALB/GLOB RATIO 1.2 (1.0-2.1); ALBUMIN 2.4 g/dL (3.5-5.0); ALT/SGPT 26 U/L (9-52); AST/SGOT 29 U/L (14-36); BLOOD UREA NITROGEN 19 mg/dL (7-17); CALCIUM 7.5 mg/dl (8.6-10.4); GFR AFRICAN-AMERICAN > 60; GFR NON-AFRICAN AMERICAN > 60
[2017-12-22] MEDS ORDERED: Potassium Chloride 20 mEq ER Tab PO ONE (08:28)
[2017-12-22 09:10] LABS: HEMOGLOBIN 12.2 g/dL (11.0-16.0); LYMPH # 0.4 K/uL (1.0-4.3); LYMPH % 3.3 % (20.0-40.0); MEAN CELL VOLUME 85.4 fL (81.0-99.0); MEAN CORPUSCULAR HEMOGLOBIN 28.9 pg (27.0-31.0); MEAN CORPUSCULAR HGB CONC 33.8 g/dL (33.0-37.0); MONO # 0.4 K/uL (0.0-0.8); NEUT # 11.8 K/uL (1.8-7.0); NEUT % 93.7 % (50.0-75.0); PLATELET COUNT 164 K/uL (130-400); RBC 4.21 Mil/uL (3.80-5.20); RED CELL DISTRIBUTION WIDTH 13.4 % (11.5-14.5)
[2017-12-22 09:14] LABS: WHITE BLOOD COUNT 12.6 K/uL (4.8-10.8)
[2017-12-22] MEDS: Pantoprazole 40 mg EC Tab PO SCH (09:27)
[2017-12-22] MEDS: Enoxaparin 40 mg Syringe SC SCH (09:27)
[2017-12-22 09:42] LABS: BANDS 25 % (0-2); LYMPHOCYTE 3 % (20-40); MONOCYTE 1 % (0-10); NEUTROPHIL 71 % (50-75); PLATELET ESTIMATE NORMAL (NORMAL); TOTAL CELLS COUNTED 100
[2017-12-22] MEDS ORDERED: Potassium Phosphate 15 MMOLE in Sodium Chloride 0.9% 100 ML IV ONE (10:00)
--- NOTE | 2017-12-22 16:51 | CP.PCM.PN ---
Subjective - Date & Time of Evaluation Date of Evaluation: 12/22/17 Time of Evaluation: 06:20 - Subjective Subjective: General Surgery- Dr. Patten Pt S&E at bedside this AM. pt having some non-productive coughing. Tolerating CLD. no flatus or BM. Pain controlled w/ current regiment. Denies F/C CP N/V/D Objective - Vital Signs/Intake and Output Vital Signs (last 24 hours): Temp Pulse Resp BP Pulse Ox 98 F 90 32 H 111/59 L 93 L 12/22/17 12:00 12/22/17 14:30 12/22/17 14:30 12/22/17 13:46 12/22/17 14:30 Intake and Output: 12/22/17 12/22/17 06:59 18:59 Intake Total 2410 1650 Output Total 800 390 Balance 1610 1260 - Medications Medications: Current Medications Benzocaine/Menthol (Cepacol Sore Throat) 1 home MT Q2H PRN PRN Reason: Sore Throat Last Admin: 12/21/17 16:51 Dose: 1 home Enoxaparin Sodium (Lovenox) 40 mg SC DAILY [facility] Last Admin: 12/22/17 09:27 Dose: 40 mg Guaifenesin (Robitussin) 100 mg PO Q4H PRN PRN Reason: Cough Last Admin: 12/22/17 04:27 Dose: 100 mg Sodium Chloride (Sodium Chloride 0.9%) 1,000 mls @ 120 mls/hr IV .Q8H20M [facility] Last Admin: 12/22/17 09:32 Dose: Not Given Ciprofloxacin (Cipro 400mg/200ml Dsw) 400 mg in 200 mls @ 133 mls/hr IVPB Q12H [facility] Last Admin: 12/22/17 11:50 Dose: 133 mls/hr Metronidazole (Flagyl) 500 mg in 100 mls @ 100 mls/hr IVPB Q8 [facility] Last Admin: 12/22/17 14:19 Dose: 100 mls/hr Acetaminophen (Ofirmev) 100 mls @ 400 mls/hr IV Q8 [facility] Stop: 12/23/17 06:01 Last Admin: 12/22/17 14:20 Dose: 400 mls/hr Morphine Sulfate (Morphine) 4 mg IVP Q4H PRN PRN Reason: Pain, moderate (4-7) Nicotine (Nicoderm Cq) 1 patch TD DAILY [facility] Last Admin: 12/22/17 09:27 Dose: 1 patch Ondansetron HCl (Zofran Inj) 4 mg IVP Q4H PRN PRN Reason: Nausea/Vomiting Pantoprazole Sodium (Protonix Ec Tab) 40 mg PO DAILY [facility] Last Admin: 12/22/17 09:27 Dose: 40 mg Pneumococcal Polyvalent Vaccine (Pneumovax 23 Vaccine) 0.5 ml SC .ONCE ONE Stop: 12/23/17 10:01 - Labs Labs: 12/22/17 09:04 12/22/17 06:31 PT 18.2 SECONDS (9.7-12.2) H 12/21/17 04:16 INR 1.6 12/21/17 04:16 APTT 31 SECONDS (21-34) 12/21/17 04:16 - Constitutional Appears: Non-toxic, No Acute Distress - Head Exam Head Exam: ATRAUMATIC - Eye Exam Eye Exam: EOMI. absent: Scleral icterus - ENT Exam ENT Exam: Mucous Membranes Moist - Respiratory Exam Respiratory Exam: NORMAL BREATHING PATTERN. absent: Accessory Muscle Use, Respiratory Distress - Cardiovascular Exam Cardiovascular Exam: +S1, +S2. absent: Bradycardia, Tachycardia - GI/Abdominal Exam GI & Abdominal Exam: Soft, Tenderness. absent: Distended, Firm, Guarding, Rigid Additional comments: appropriately tender to palpation around incision - Extremities Exam Extremities Exam: Normal Inspection. absent: Calf Tenderness - Neurological Exam Neurological Exam: Alert, Awake - Skin Skin Exam: Intact, Warm Assessment and Plan - Assessment and Plan (Free Text) Assessment: 62F sp ex-lap w/ alison patch POD#1 Plan: - monitor bowel - pain control & Anti-emetic PRN - OOB2C encourage IC use - recommend Chest PT - DVT ppx - will advance diet as tolerated - discussed w/ Dr. Patetn Surgical attending PGY1
[2017-12-23] MEDS: Sodium Chloride 0.9% 1,000 ML IV SCH ×2 (01:45→09:17)
[2017-12-23] MEDS: metroNIDAZOLE IV 500 mg/100 ml 500 MG/100 ML BAG IVPB SCH ×3 (05:21→22:00)
--- NOTE | 2017-12-23 08:34 | CP.PCM.PN ---
Subjective - Date & Time of Evaluation Date of Evaluation: 12/23/17 Time of Evaluation: 06:55 - Subjective Subjective: General Surgery- Dr. Patten Pt S&E at bedside this AM. pt having some non-productive coughing. Tolerating CLD. no flatus or BM. Pain controlled w/ current regiment. Da drain: >150CC serosang. Denies F/C CP N/V/D Objective - Vital Signs/Intake and Output Vital Signs (last 24 hours): Temp Pulse Resp BP Pulse Ox 97.9 F 118 H 18 107/67 93 L 12/23/17 07:35 12/23/17 07:35 12/23/17 07:35 12/23/17 07:35 12/23/17 07:35 Intake and Output: 12/23/17 12/23/17 06:59 18:59 Intake Total 1700 Output Total 65 Balance 1635 - Medications Medications: Current Medications Benzocaine/Menthol (Cepacol Sore Throat) 1 home MT Q2H PRN PRN Reason: Sore Throat Last Admin: 12/21/17 16:51 Dose: 1 home Enoxaparin Sodium (Lovenox) 40 mg SC DAILY [facility] Last Admin: 12/22/17 09:27 Dose: 40 mg Guaifenesin (Robitussin) 100 mg PO Q4H PRN PRN Reason: Cough Last Admin: 12/22/17 04:27 Dose: 100 mg Sodium Chloride (Sodium Chloride 0.9%) 1,000 mls @ 120 mls/hr IV .Q8H20M [facility] Last Admin: 12/23/17 01:45 Dose: Not Given Ciprofloxacin (Cipro 400mg/200ml Dsw) 400 mg in 200 mls @ 133 mls/hr IVPB Q12H [facility] Last Admin: 12/22/17 23:44 Dose: 133 mls/hr Metronidazole (Flagyl) 500 mg in 100 mls @ 100 mls/hr IVPB Q8 [facility] Last Admin: 12/23/17 05:21 Dose: 100 mls/hr Morphine Sulfate (Morphine) 4 mg IVP Q4H PRN PRN Reason: Pain, moderate (4-7) Nicotine (Nicoderm Cq) 1 patch TD DAILY [facility] Last Admin: 12/22/17 09:27 Dose: 1 patch Ondansetron HCl (Zofran Inj) 4 mg IVP Q4H PRN PRN Reason: Nausea/Vomiting Pantoprazole Sodium (Protonix Ec Tab) 40 mg PO DAILY [facility] Last Admin: 12/22/17 09:27 Dose: 40 mg Pneumococcal Polyvalent Vaccine (Pneumovax 23 Vaccine) 0.5 ml SC .ONCE ONE Stop: 12/23/17 10:01 - Labs Labs: 12/22/17 09:04 12/22/17 06:31 PT 18.2 SECONDS (9.7-12.2) H 12/21/17 04:16 INR 1.6 12/21/17 04:16 APTT 31 SECONDS (21-34) 12/21/17 04:16 - Constitutional Appears: Non-toxic, No Acute Distress - Head Exam Head Exam: ATRAUMATIC - Eye Exam Eye Exam: EOMI. absent: Scleral icterus - ENT Exam ENT Exam: Mucous Membranes Moist - Respiratory Exam Respiratory Exam: NORMAL BREATHING PATTERN. absent: Accessory Muscle Use, Respiratory Distress - Cardiovascular Exam Cardiovascular Exam: +S1, +S2. absent: Bradycardia, Tachycardia - GI/Abdominal Exam GI & Abdominal Exam: Distended, Soft, Tenderness. absent: Firm, Guarding, Rigid Additional comments: abd typmpanic appropriately tender shira-incisional Da drain in place w/ serosang output - Extremities Exam Extremities Exam: Normal Inspection. absent: Calf Tenderness - Neurological Exam Neurological Exam: Alert, Awake, Oriented x3 - Psychiatric Exam Psychiatric exam: Normal Affect - Skin Skin Exam: Intact, Warm Assessment and Plan - Assessment and Plan (Free Text) Assessment: 62F perforated gastric ulcer sp ex-lap w/ alison patch POD#2 Plan: - monitor bowel - replete lytes PRN - pain control & Anti-emetic PRN - encourage IC, OOB2C & ambulation - Chest PT - DVT ppx - will advance diet as tolerated - discussed w/ Dr. Patten Surgical attending PGY1
[2017-12-23 08:40] LABS: BASO % 0.2 % (0.0-2.0); EOS % 0.1 % (0.0-4.0); HEMOGLOBIN 11.2 g/dL (11.0-16.0); LYMPH # 0.7 K/uL (1.0-4.3); LYMPH % 5.6 % (20.0-40.0); MEAN CELL VOLUME 84.8 fL (81.0-99.0); MEAN CORPUSCULAR HEMOGLOBIN 29.2 pg (27.0-31.0); MEAN CORPUSCULAR HGB CONC 34.5 g/dL (33.0-37.0); MEAN PLATELET VOLUME 8.8 fL (7.2-11.7); MONO # 0.4 K/uL (0.0-0.8); MONO % 3.3 % (0.0-10.0); NEUT # 10.8 K/uL (1.8-7.0); NEUT % 90.8 % (50.0-75.0); PLATELET COUNT 179 K/uL (130-400); RBC 3.84 Mil/uL (3.80-5.20); RED CELL DISTRIBUTION WIDTH 13.7 % (11.5-14.5); WHITE BLOOD COUNT 11.8 K/uL (4.8-10.8)
[2017-12-23] MEDS ORDERED: Potassium Chloride 20 mEq/15 ml LIQ UD PO ONE (09:09)
[2017-12-23 09:34] LABS: LYMPHOCYTE 7 % (20-40); MONOCYTE 2 % (0-10); NEUTROPHIL 91 % (50-75); TOTAL CELLS COUNTED 100
[2017-12-23 09:35] LABS: PLATELET ESTIMATE NORMAL (NORMAL)
[2017-12-23] MEDS: Enoxaparin 40 mg Syringe SC SCH (09:42)
[2017-12-23] MEDS: Pantoprazole 40 mg EC Tab PO SCH (09:42)
[2017-12-23] MEDS ORDERED: Pneumococcal 23-Valent Vaccine SC ONE (10:00)
[2017-12-23] MEDS ORDERED: Influenza Vaccine 60 mcg/0.5 mL SYR (4YR UP) IM ONE (10:00)
[2017-12-23] MEDS: Potassium Ch 20mEq in D5-1/2NS 1,000 ML IV SCH (10:43)
[2017-12-23] MEDS: Ciprofloxacin 400mg/200ml D5W 400 MG/200 ML BAG IVPB SCH (12:13)
[2017-12-23] MEDS ORDERED: Lactated Ringer's 1,000 ML IV ONE (19:59)
[2017-12-23] MEDS ORDERED: Midazolam 2 MG/2 ML VIAL ONE ×2 (21:09→21:57)
[2017-12-23] MEDS ORDERED: Succinylcholine Chloride 20 mg/ml Syr (5 ml) IV ONE (21:09)
[2017-12-23] MEDS ORDERED: Etomidate 20 mg/10ml Inj IV ONE (21:09)
[2017-12-23] MEDS ORDERED: Propofol 10 mg/ml Inj (20 ML) ONE (21:09)
[2017-12-23] MEDS ORDERED: Rocuronium 10 mg/ml (5 ml) ONE (21:09)
[2017-12-23] MEDS ORDERED: Propofol 10 mg/ml 1,000 MG/100 ML VIAL IV PRN (23:03)
--- NOTE | 2017-12-23 23:17 | PCM.SURG1 ---
Surgeon's Initial Post Op Note - Surgeon's Notes Surgeon: Dr Patten Developer Programmer Analyst: Dr Lowe PGY3, Dr Lino PGY1 Type of Anesthesia: General Endo Pre-Operative Diagnosis: perforated gastric ulcer Operative Findings: see report for details Post-Operative Diagnosis: as above Operation Performed: exploratory laparotomy. peritoneal lavage. distal jan- gastrectomy w/ bill carvajal II gastrojejunostomy Specimen/Specimens Removed: short gastric vessels. distal stomach with pylorus Estimated Blood Loss: EBL {In ML}: 150 Blood Products Given: PRBC (1 unit) Drains Used: Da (x 2 ) Post-Op Condition: Fair Date of Surgery/Procedure: 12/23/17 Time of Surgery/Procedure: 23:17
[2017-12-23] MEDS: Albumin Human 25% (12.5 gm/50 ml) IV SCH ×2 (23:52→23:56)
--- NOTE | 2017-12-24 00:33 | CP.PCM.PN ---
Subjective - Date & Time of Evaluation Date of Evaluation: 12/24/17 Time of Evaluation: 00:21 - Subjective Subjective: 62 F brought to ICU post op partial gastrectomy. Patient initially admitted to hospital with perforated anterior wall gastric ulcer, s/p Khanh's patch which gave up and patient had sudden distension of abd, hypotension and patient taken to OR confirmed above, but could not be repaired and had partial gastrectomy done. As d/w surgery team, was hypotensive during surg, was given 1lit bolus fluid, albumin 25gm, prbc 1 unit, about 3lit vol removed from peritneal cavity, 150ml blood loss, about 100ml urine output. Post op patient is on vent 50% fio2 , spo2 100%, responsive, tiered but able to communicate. Concentrated urine noticed in kevin, bp 95/50, hr about 100 range, sinus. 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 Objective - Vital Signs/Intake and Output Vital Signs (last 24 hours): Temp Pulse Resp BP Pulse Ox 98.0 F 128 H 17 123/77 98 12/23/17 15:00 12/23/17 23:16 12/23/17 23:16 12/23/17 23:16 12/23/17 23:16 Intake and Output: 12/23/17 12/24/17 18:59 06:59 Intake Total 900 2375 Output Total 192 600 Balance 708 1775 - Medications Medications: Current Medications Benzocaine/Menthol (Cepacol Sore Throat) 1 home MT Q2H PRN PRN Reason: Sore Throat Last Admin: 12/21/17 16:51 Dose: 1 home Enoxaparin Sodium (Lovenox) 40 mg SC DAILY [facility] Last Admin: 12/23/17 09:42 Dose: 40 mg Guaifenesin (Robitussin) 100 mg PO Q4H PRN PRN Reason: Cough Last Admin: 12/22/17 04:27 Dose: 100 mg Ciprofloxacin (Cipro 400mg/200ml Dsw) 400 mg in 200 mls @ 133 mls/hr IVPB Q12H [facility] Last Admin: 12/23/17 12:13 Dose: 133 mls/hr Metronidazole (Flagyl) 500 mg in 100 mls @ 100 mls/hr IVPB Q8 [facility] Last Admin: 12/23/17 22:00 Dose: 100 mls Potassium Chloride/Dextrose/Sod Cl (Potassium Chl 20 Meq In D5-1/2ns) 1,000 mls @ 50 mls/hr IV .Q20H [facility] Last Admin: 12/23/17 10:43 Dose: 50 mls/hr Propofol (Diprivan) 1,000 mg in 100 mls @ 1.579 mls/hr IV .Q24H PRN; Protocol; 5 MCG/KG/MIN PRN Reason: TITRATE PER MD ORDER Last Admin: 12/23/17 23:51 Dose: 15 mcg/kg/min, 4.736 mls/hr Fentanyl Citrate 2,500 mcg/ (Sodium Chloride) 250 mls @ 10.52 mls/hr IV .[id number] [facility]; 2 MCG/KG/HR PRN Reason: Protocol Last Admin: 12/23/17 23:53 Dose: 2 mcg/kg/hr, 10.52 mls/hr Morphine Sulfate (Morphine) 4 mg IVP Q4H PRN PRN Reason: Pain, moderate (4-7) Nicotine (Nicoderm Cq) 1 patch TD DAILY [facility] Last Admin: 12/23/17 09:43 Dose: 1 patch Ondansetron HCl (Zofran Inj) 4 mg IVP Q4H PRN PRN Reason: Nausea/Vomiting Pantoprazole Sodium (Protonix Inj) 40 mg IVP DAILY [facility] - Labs Labs: 12/23/17 08:27 12/22/17 06:31 PT 18.2 SECONDS (9.7-12.2) H 12/21/17 04:16 INR 1.6 12/21/17 04:16 APTT 31 SECONDS (21-34) 12/21/17 04:16
[2017-12-24] MEDS: Ciprofloxacin 400mg/200ml D5W 400 MG/200 ML BAG IVPB SCH ×2 (00:43→11:15)
[2017-12-24] MEDS ORDERED: Albumin Human 25% (12.5 gm/50 ml) IV SCH (00:45)
[2017-12-24] MEDS: Lactated Ringer's 1,000 ML IV SCH ×4 (01:36→20:57)
[2017-12-24 05:23] LABS: ABG ALLEN TEST POS; ARTERIAL BLOOD GAS HCO3 28.8 mmol/L (21-28); ARTERIAL BLOOD GAS HEMOGLOBIN 10.4 g/dL (11.7-17.4); ARTERIAL BLOOD GAS O2 SAT 98.7 % (95-98); ARTERIAL BLOOD GAS PCO2 51 mm/Hg (35-45); ARTERIAL BLOOD GAS PH 7.39 (7.35-7.45); ARTERIAL BLOOD GAS PO2 82 mm/Hg (80-100); ARTERIAL BLOOD GAS TCO2 32.5 mmol/L (22-28)
[2017-12-24] MEDS: metroNIDAZOLE IV 500 mg/100 ml 500 MG/100 ML BAG IVPB SCH ×3 (05:35→21:26)
[2017-12-24] MEDS: Potassium Ch 20mEq in D5-1/2NS 1,000 ML IV SCH (05:39)
[2017-12-24 06:42] LABS: BASO % 0.2 % (0.0-2.0); EOS % 0.1 % (0.0-4.0); LYMPH # 0.8 K/uL (1.0-4.3); MEAN CELL VOLUME 85.5 fL (81.0-99.0); MONO # 0.4 K/uL (0.0-0.8)
[2017-12-24 06:59] LABS: ALB/GLOB RATIO 1.7 (1.0-2.1); ALBUMIN 2.4 g/dL (3.5-5.0); ALT/SGPT 25 U/L (9-52); AST/SGOT 19 U/L (14-36); BLOOD UREA NITROGEN 35 mg/dL (7-17); CALCIUM 7.5 mg/dl (8.6-10.4); GFR AFRICAN-AMERICAN > 60; GFR NON-AFRICAN AMERICAN > 60
[2017-12-24 07:56] LABS: HEMOGLOBIN 10.3 g/dL (11.0-16.0); LYMPH % 14.1 % (20.0-40.0); MEAN CORPUSCULAR HEMOGLOBIN 29.4 pg (27.0-31.0); MEAN CORPUSCULAR HGB CONC 34.4 g/dL (33.0-37.0); MEAN PLATELET VOLUME 8.6 fL (7.2-11.7); MONO % 7.9 % (0.0-10.0); NEUT # 4.4 K/uL (1.8-7.0); NEUT % 77.7 % (50.0-75.0); NRBC % 0.2 % (0.0-2.0); RBC 3.5 Mil/uL (3.80-5.20); RED CELL DISTRIBUTION WIDTH 13.9 % (11.5-14.5)
[2017-12-24 07:59] LABS: WHITE BLOOD COUNT 5.7 K/uL (4.8-10.8)
--- NOTE | 2017-12-24 08:17 | RAD ---
HISTORY: eval for free air COMPARISON: 12/21/2017. FINDINGS: LUNGS: There is bilateral lower lobe airspace disease. Lung markings are accentuated. There is subsegmental atelectasis in the left lower lobe. PLEURA: There are bilateral pleural effusions, no pneumothorax apparent. CARDIOVASCULAR: Normal. OSSEOUS STRUCTURES: No significant abnormalities. VISUALIZED UPPER ABDOMEN: Normal. OTHER FINDINGS: There are curvilinear lucencies overlying both upper quadrants and the left hemidiaphragm. IMPRESSION: Curvilinear lucencies overlying both upper quadrant and left hemidiaphragm, findings could be related to air-fluid levels however free air cannot be entirely excluded on the semi-erect radiograph. If there is a persistent clinical concern, correlation with CT scan of the abdomen may be performed.
--- NOTE | 2017-12-24 08:23 | RAD ---
HISTORY: intubated COMPARISON: 12/23/2017. FINDINGS: Endotracheal tube terminates 1.5 cm proximal to the stu. The nasogastric tube terminates in the stomach. LUNGS: There is severe pulmonary venous congestion. PLEURA: There are small layering pleural effusions, no pneumothorax apparent. CARDIOVASCULAR: Normal. OSSEOUS STRUCTURES: No significant abnormalities. VISUALIZED UPPER ABDOMEN: Normal. OTHER FINDINGS: None. IMPRESSION: Endotracheal tube terminates 1.5 cm proximal to the stu. Severe pulmonary venous congestion and layering pleural effusions.
--- NOTE | 2017-12-24 09:17 | RAD ---
HISTORY: Intubated COMPARISON: 12/23/2017 FINDINGS: The endotracheal tube terminates 1.7 cm proximal to the stu. The nasogastric tube terminates in the stomach. LUNGS: There is worsening pulmonary venous congestion. There is also airspace disease in the left retrocardiac region. PLEURA: Worsening pleural effusions, larger on the right. No apparent pneumothorax. CARDIOVASCULAR: Normal. OSSEOUS STRUCTURES: No significant abnormalities. VISUALIZED UPPER ABDOMEN: Normal. OTHER FINDINGS: There are left paramedian surgical clips. IMPRESSION: Worsening pulmonary venous congestion and right pleural effusion. Left retrocardiac airspace disease could represent atelectasis however superimposed pneumonia cannot be excluded. Stable position of endotracheal tube.
[2017-12-24] MEDS: Enoxaparin 40 mg Syringe SC SCH (10:25)
--- NOTE | 2017-12-24 14:05 | CARD ---
APPROVED REPORT EKG Measurement Heart [id number] <Conclusion> Normal sinus rhythm with sinus arrhythmia Possible Left atrial enlargement Borderline ECG
--- NOTE | 2017-12-24 14:20 | CP.CCUPN ---
CCU Subjective - Physician Review Subjective (Free Text): 12/24/17 14:15 patient seen and examined at bedside tolerating CPAP all day CT scan to eval for possible pleural effusion Plan for extubation CCU Objective - Vital Signs / Intake & Output Vital Signs (Last 4 hours): Vital Signs Pulse Resp BP Pulse Ox 12/24/17 12:00 116 H 24 95 12/24/17 11:56 112 H 26 H 110/65 95 12/24/17 11:08 105 H 26 H 105/61 95 12/24/17 11:07 105/61 12/24/17 11:00 112 H 18 94 L 12/24/17 10:56 110 H 21 94/63 L 95 Intake and Output (Last 8hrs): Intake & Output 12/23/17 12/24/17 12/24/17 22:59 06:59 14:59 Intake Total 3275 1198.5 913.6 Output Total 792 610 Balance 2483 588.5 913.6 Intake: IV 1300 250 Intake, IV Amount 1100 1198.5 663.6 Left Upper arm 100 Left Wrist 1100 RIGHT WRIST 2ND PORT 19.2 Right Forearm 179.3 63.6 right wrist 900 600 Oral 550 0 0 Blood Product 325 Output: Gastric Amount 280 Left Nares 280 Drainage 690 280 LEFT 690 250 RIGHT GARY 30 Urine 102 50 2-way Urethral 50 Urine, Voided 2 Other: # Voids 2-way Urethral 260 45 # Bowel Movements 1 - Medications Active Medications: Active Medications Generic Name Dose Route Start Last Admin Trade Name Freq PRN Reason Stop Dose Admin Benzocaine/Menthol 1 home 12/21/17 09:05 12/21/17 16:51 Cepacol Sore Throat MT 1 home Q2H PRN Administration Sore Throat Enoxaparin Sodium 40 mg 12/22/17 10:00 12/24/17 10:25 Lovenox SC 40 mg DAILY AVIL[facility] Administration Famotidine 20 mg 12/24/17 10:00 12/24/17 09:47 Pepcid IVP 20 mg Q12 [facility] Administration Guaifenesin 100 mg 12/22/17 04:13 12/22/17 04:27 Robitussin PO 100 mg Q4H PRN Administration Cough Ciprofloxacin 400 mg in 200 mls @ 133 mls/hr 12/21/17 00:15 12/24/17 11:15 Cipro 400mg/200ml Dsw IVPB 133 mls/hr Q12H [facility] Administration Metronidazole 500 mg in 100 mls @ 100 mls/hr 12/21/17 06:00 12/24/17 13:54 Flagyl IVPB 100 mls/hr Q8 [facility] Administration Potassium Chloride/Dextrose/Sod Cl 1,000 mls @ 50 mls/hr 12/23/17 09:15 12/24 05:39 Potassium Chl 20 Meq In D5-1/2ns IV Not Given .Q20H [facility] Propofol 1,000 mg in 100 mls @ 1.579 mls/hr 12/23/17 23:03 12/23/17 23:51 Diprivan IV 15 mcg/kg/min .Q24H PRN 4.736 mls/hr TITRATE PER MD ORDER Administration Protocol 5 MCG/KG/MIN Fentanyl Citrate 2,500 mcg/ 250 mls @ 10.52 mls/hr 12/23/17 23:15 12/24/17 11 :35 Sodium Chloride IV 4 mcg/kg/hr .[id number] [facility] 21.04 mls/hr Protocol Administration 2 MCG/KG/HR Lactated Ringer's 1,000 mls @ 100 mls/hr 12/24/17 01:00 12/24/17 08:05 Lactated Ringer's IV 100 mls/hr .Q10H [facility] Administration Morphine Sulfate 4 mg 12/20/17 23:56 Morphine IVP Q4H PRN Pain, moderate (4-7) Nicotine 1 patch 12/21/17 10:00 12/24/17 10:26 Nicoderm Cq TD 1 patch DAILY [facility] Administration Ondansetron HCl 4 mg 12/20/17 23:56 Zofran Inj IVP Q4H PRN Nausea/Vomiting - Patient Studies Lab Studies: Microbiology Studies 12/20/17 21:00 Blood Culture - Preliminary Blood NO GROWTH AFTER 3 DAYS 12/20/17 20:30 Blood Culture - Preliminary Blood NO GROWTH AFTER 3 DAYS 12/22/17 Unknown MRSA Culture - Final Naris MRSA NOT DETECTED Lab Studies 12/24/17 12/24/17 12/24/17 Range/Units 06:30 06:30 05:15 WBC 5.7 D (4.8-10.8) K/uL RBC 3.50 L (3.80-5.20) Mil/uL Hgb 10.3 L (11.0-16.0) g/dL Hct 29.9 L (34.0-47.0) % MCV 85.5 (81.0-99.0) fL MCH 29.4 (27.0-31.0) pg MCHC 34.4 (33.0-37.0) g/dL RDW 13.9 (11.5-14.5) % Plt Count 133 (130-400) K/uL MPV 8.6 (7.2-11.7) fL Neut % (Auto) 77.7 H (50.0-75.0) % Lymph % (Auto) 14.1 L (20.0-40.0) % [place] % (Auto) 7.9 (0.0-10.0) % Eos % (Auto) 0.1 (0.0-4.0) % Baso % (Auto) 0.2 (0.0-2.0) % Neut # (Auto) 4.4 (1.8-7.0) K/uL Lymph # (Auto) 0.8 L (1.0-4.3) K/uL [place] # (Auto) 0.4 (0.0-0.8) K/uL Eos # (Auto) 0.0 (0.0-0.7) K/uL Baso # (Auto) 0.0 (0.0-0.2) K/uL Puncture Site Rr pCO2 51 H (35-45) mm/Hg pO2 82 (80-100) mm/Hg HCO3 28.8 H (21-28) mmol/L ABG pH 7.39 (7.35-7.45) ABG Total CO2 32.5 H (22-28) mmol/L ABG O2 Saturation 98.7 H (95-98) % ABG Base Excess 5.0 H (-2.0-3.0) mmol/L ABG Hemoglobin 10.4 L (11.7-17.4) g/dL ABG Carboxyhemoglobin 2.1 H (0.5-1.5) % POC ABG HHb (Measured) 1.3 (0.0-5.0) % ABG Methemoglobin 1.2 (0.0-3.0) % Anoop Test Pos A-a O2 Difference 211.0 mm/Hg Respiratory Index 2.6 Hgb O2 Saturation 95.5 (95.0-98.0) % Vent Mode Prvc Mechanical Rate 16 FiO2 50.0 % Tidal Volume 450 PEEP 5 Sodium 139 (132-148) mmol/L Potassium 3.6 (3.6-5.2) mmol/L Chloride 102 (98-107) mmol/L Carbon Dioxide 30 (22-30) mmol/L Anion Gap 10 (10-20) BUN 35 H (7-17) mg/dL Creatinine 0.7 (0.7-1.2) mg/dL Est GFR ( Amer) > 60 Est GFR (Non-Af Amer) > 60 Random Glucose 138 H (65-105) mg/dL Calcium 7.5 L (8.6-10.4) mg/dl Total Bilirubin 0.5 (0.2-1.3) mg/dL AST 19 (14-36) U/L ALT 25 (9-52) U/L Alkaline Phosphatase < 20 L D (38-126) U/L Total Protein 3.8 L (6.3-8.3) g/dL Albumin 2.4 L (3.5-5.0) g/dL Globulin 1.4 L (2.2-3.9) gm/dL Albumin/Globulin Ratio 1.7 (1.0-2.1) Blood Type Blood Type Confirm Antibody Screen 12/21/17 Range/Units 01:06 WBC (4.8-10.8) K/uL RBC (3.80-5.20) Mil/uL Hgb (11.0-16.0) g/dL Hct (34.0-47.0) % MCV (81.0-99.0) fL MCH (27.0-31.0) pg MCHC (33.0-37.0) g/dL RDW (11.5-14.5) % Plt Count (130-400) K/uL MPV (7.2-11.7) fL Neut % (Auto) (50.0-75.0) % Lymph % (Auto) (20.0-40.0) % [place] % (Auto) (0.0-10.0) % Eos % (Auto) (0.0-4.0) % Baso % (Auto) (0.0-2.0) % Neut # (Auto) (1.8-7.0) K/uL Lymph # (Auto) (1.0-4.3) K/uL [place] # (Auto) (0.0-0.8) K/uL Eos # (Auto) (0.0-0.7) K/uL Baso # (Auto) (0.0-0.2) K/uL Puncture Site pCO2 (35-45) mm/Hg pO2 (80-100) mm/Hg HCO3 (21-28) mmol/L ABG pH (7.35-7.45) ABG Total CO2 (22-28) mmol/L ABG O2 Saturation (95-98) % ABG Base Excess (-2.0-3.0) mmol/L ABG Hemoglobin (11.7-17.4) g/dL ABG Carboxyhemoglobin (0.5-1.5) % POC ABG HHb (Measured) (0.0-5.0) % ABG Methemoglobin (0.0-3.0) % Anoop Test A-a O2 Difference mm/Hg Respiratory Index Hgb O2 Saturation (95.0-98.0) % Vent Mode Mechanical Rate FiO2 % Tidal Volume PEEP Sodium (132-148) mmol/L Potassium (3.6-5.2) mmol/L Chloride (98-107) mmol/L Carbon Dioxide (22-30) mmol/L Anion Gap (10-20) BUN (7-17) mg/dL Creatinine (0.7-1.2) mg/dL Est GFR ( Amer) Est GFR (Non-Af Amer) Random Glucose (65-105) mg/dL Calcium (8.6-10.4) mg/dl Total Bilirubin (0.2-1.3) mg/dL AST (14-36) U/L ALT (9-52) U/L Alkaline Phosphatase (38-126) U/L Total Protein (6.3-8.3) g/dL Albumin (3.5-5.0) g/dL Globulin (2.2-3.9) gm/dL Albumin/Globulin Ratio (1.0-2.1) Blood Type A POSITIVE Blood Type Confirm A POSITIVE Antibody Screen Negative Laboratory Results - last 24 hr 12/21/17 12/24/17 12/24/17 01:06 05:15 06:30 WBC 5.7 D RBC 3.50 L Hgb 10.3 L Hct 29.9 L MCV 85.5 MCH 29.4 MCHC 34.4 RDW 13.9 Plt Count 133 MPV 8.6 Neut % (Auto) 77.7 H Lymph % (Auto) 14.1 L [place] % (Auto) 7.9 Eos % (Auto) 0.1 Baso % (Auto) 0.2 Neut # (Auto) 4.4 Lymph # (Auto) 0.8 L [place] # (Auto) 0.4 Eos # (Auto) 0.0 Baso # (Auto) 0.0 Puncture Site Rr pCO2 51 H pO2 82 HCO3 28.8 H ABG pH 7.39 ABG Total CO2 32.5 H ABG O2 Saturation 98.7 H ABG Base Excess 5.0 H ABG Hemoglobin 10.4 L ABG Carboxyhemoglobin 2.1 H POC ABG HHb (Measured) 1.3 ABG Methemoglobin 1.2 Anoop Test Pos A-a O2 Difference 211.0 Respiratory Index 2.6 Hgb O2 Saturation 95.5 Vent Mode Prvc Mechanical Rate 16 FiO2 50.0 Tidal Volume 450 PEEP 5 Sodium Potassium Chloride Carbon Dioxide Anion Gap BUN Creatinine Est GFR ( Amer) Est GFR (Non-Af Amer) Random Glucose Calcium Total Bilirubin AST ALT Alkaline Phosphatase Total Protein Albumin Globulin Albumin/Globulin Ratio Blood Type A POSITIVE Blood Type Confirm A POSITIVE Antibody Screen Negative 12/24/17 06:30 WBC RBC Hgb Hct MCV MCH MCHC RDW Plt Count MPV Neut % (Auto) Lymph % (Auto) [place] % (Auto) Eos % (Auto) Baso % (Auto) Neut # (Auto) Lymph # (Auto) [place] # (Auto) Eos # (Auto) Baso # (Auto) Puncture Site pCO2 pO2 HCO3 ABG pH ABG Total CO2 ABG O2 Saturation ABG Base Excess ABG Hemoglobin ABG Carboxyhemoglobin POC ABG HHb (Measured) ABG Methemoglobin Anoop Test A-a O2 Difference Respiratory Index Hgb O2 Saturation Vent Mode Mechanical Rate FiO2 Tidal Volume PEEP Sodium 139 Potassium 3.6 Chloride 102 Carbon Dioxide 30 Anion Gap 10 BUN 35 H Creatinine 0.7 Est GFR ( Amer) > 60 Est GFR (Non-Af Amer) > 60 Random Glucose 138 H Calcium 7.5 L Total Bilirubin 0.5 AST 19 ALT 25 Alkaline Phosphatase < 20 L D Total Protein 3.8 L Albumin 2.4 L Globulin 1.4 L Albumin/Globulin Ratio 1.7 Blood Type Blood Type Confirm Antibody Screen Critical Care Progress Note - Nutrition Nutrition: Nutrition Category Date Time Status NPO Diet [DIET] Diets 12/23/17 Breakfast Active Assessment/Plan - Assessment and Plan (Free Text) Assessment: 62F distal jan-gastrectomy w/ bill carvajal II gastrojejunostomy POD 1 Plan: Neuro: No acute issues Cards: No acute issues Pulm: Intubated. CPAP trial tolerated well for majority of day. Questionable pleural effusion on xray. will get CT. Plan for extubation Renal: No acute issues GI: distal jan-gastrectomy w/ bill carvajal II gastrojejunostomy POD 1. Fetanyl drip. Monitor IVY output. Cipro Q12/Flagyl Q8 PPX: Protonix/Lovenox
--- NOTE | 2017-12-24 17:53 | CT ---
CT chest, abdomen, and pelvis without IV contrast Indication: Effusion Technique: Contiguous axial images of the chest, abdomen, and pelvis without oral or IV contrast. Coronal and Sagittal reformats generated and reviewed. This CT exam was performed using 1 or more of the following dose reduction techniques: Automated exposure control, adjustment of the MAA and/or kV according to patient size, and/or use of iterative reconstruction technique. Radiation dose: Total exam DLP = 613.18 MGy-cm. Comparison: Chest x-ray performed 12/24/17, CT of the abdomen and pelvis with IV contrast performed 12/20/17 Findings: Endotracheal tube terminates above the stu. Nasogastric tube extends expected location of the stomach. Visualized portions of the inferior thyroid gland appear heterogeneous. The unenhanced mediastinal and hilar vascular structures appear grossly unremarkable. Heart size appears within normal limits. Atherosclerotic calcifications of the aorta. Small pericardial effusion. Extensive emphysematous changes bilaterally. Moderate bilateral pleural effusions and associated consolidations. No pneumothorax. At least 2 abdominal drainage catheters 1 within the left upper quadrant within the right lower quadrant. Small abdominal and pelvic ascites. Heterogeneous appearance of the noncontrast liver with numerous low-density lesions consistent with either cysts or too small to characterize. Persistent prominence of the pancreatic head relative to the body and tail. The noncontrast spleen, kidneys, adrenal glands, and gallbladder appear grossly unremarkable. The common bile duct appears dilated, approximately 9 mm. The stomach is nondistended. Gastric wall remains mildly prominent/irregular. Thick-walled small bowel loops in particular duodenum and jejunum; correlate for infectious/ inflammatory etiologies. Lack of oral contrast limits evaluation for bowel pathology. The bowel loops appear within normal limits of caliber without evidence of intestinal obstruction. Diverticulosis without CT evidence of acute diverticulitis. The appendix is not identified. Small foci of free air. Uterus is present. Previously demonstrated left adnexal mass inadequately identified on this noncontrast study. Londono catheter within a decompressed urinary bladder which contains air, likely due to recent instrumentation. Anasarca. Midline surgical elsa. Degenerative changes. Impression: Endotracheal tube. Nasogastric tube. Extensive emphysematous changes bilaterally. Moderate bilateral pleural effusions and associated consolidations. At least 2 abdominal drainage catheters; 1 within the left upper quadrant within the right lower quadrant. Small abdominal and pelvic ascites. Heterogeneous appearance of the noncontrast liver with numerous low-density lesions consistent with either cysts or too small to characterize. Persistent prominence of the pancreatic head relative to the body and tail. The common bile duct appears dilated, approximately 9 mm. Gastric wall remains mildly prominent/irregular. Thick-walled small bowel loops in particular duodenum and jejunum; correlate for infectious/ inflammatory etiologies. Diverticulosis without CT evidence of acute diverticulitis. Midline surgical elsa. Small foci of free air. Previously demonstrated left adnexal mass inadequately identified on this noncontrast study. Londono catheter within a decompressed urinary bladder which contains air, likely due to recent instrumentation. Anasarca.
--- NOTE | 2017-12-24 19:04 | CP.PCM.PN ---
Subjective - Date & Time of Evaluation Date of Evaluation: 12/24/17 Time of Evaluation: 07:10 - Subjective Subjective: General Surgery- Dr. Patten Patient seen and examined at bedside this AM. on CPAP, tolerating well saturating at 97%. NGT to suction, kevin in. NPO. Pain controlled. Awake and responds to simple commands, unable to obtain ROS due to being intubated. Left chan in pelvis: 900cc serosang Right chan in anatamosis site: 30cc serosang Objective - Vital Signs/Intake and Output Vital Signs (last 24 hours): Temp Pulse Resp BP Pulse Ox 99.2 F 111 H 19 101/67 95 12/24/17 12:00 12/24/17 14:00 12/24/17 14:00 12/24/17 13:56 12/24/17 14:00 Intake and Output: 12/24/17 12/24/17 06:59 18:59 Intake Total 3573.5 1327.2 Output Total 1210 Balance 2363.5 1327.2 - Medications Medications: Current Medications Enoxaparin Sodium (Lovenox) 40 mg SC DAILY [facility] Last Admin: 12/24/17 10:25 Dose: 40 mg Famotidine (Pepcid) 20 mg IVP Q12 [facility] Last Admin: 12/24/17 09:47 Dose: 20 mg Guaifenesin (Robitussin) 100 mg PO Q4H PRN PRN Reason: Cough Last Admin: 12/22/17 04:27 Dose: 100 mg Ciprofloxacin (Cipro 400mg/200ml Dsw) 400 mg in 200 mls @ 133 mls/hr IVPB Q12H [facility] Last Admin: 12/24/17 11:15 Dose: 133 mls/hr Metronidazole (Flagyl) 500 mg in 100 mls @ 100 mls/hr IVPB Q8 [facility] Last Admin: 12/24/17 13:54 Dose: 100 mls/hr Fentanyl Citrate 2,500 mcg/ (Sodium Chloride) 250 mls @ 10.52 mls/hr IV .[id number] [facility]ILA; 2 MCG/KG/HR PRN Reason: Protocol Last Admin: 12/24/17 11:35 Dose: 4 mcg/kg/hr, 21.04 mls/hr Lactated Ringer's (Lactated Ringer's) 1,000 mls @ 100 mls/hr IV .Q10H [facility] Last Admin: 12/24/17 08:05 Dose: 100 mls/hr Morphine Sulfate (Morphine) 4 mg IVP Q4H PRN PRN Reason: Pain, moderate (4-7) Nicotine (Nicoderm Cq) 1 patch TD DAILY [facility] Last Admin: 12/24/17 10:26 Dose: 1 patch Ondansetron HCl (Zofran Inj) 4 mg IVP Q4H PRN PRN Reason: Nausea/Vomiting - Labs Labs: 12/24/17 06:30 12/24/17 06:30 PT 18.2 SECONDS (9.7-12.2) H 12/21/17 04:16 INR 1.6 12/21/17 04:16 APTT 31 SECONDS (21-34) 12/21/17 04:16 - Constitutional Appears: Non-toxic, No Acute Distress - Eye Exam Eye Exam: EOMI. absent: Scleral icterus - ENT Exam ENT Exam: Mucous Membranes Moist - Respiratory Exam Respiratory Exam: NORMAL BREATHING PATTERN. absent: Accessory Muscle Use, Respiratory Distress Additional comments: intubated on CPAP - Cardiovascular Exam Cardiovascular Exam: +S1, +S2. absent: Bradycardia, Tachycardia - GI/Abdominal Exam GI & Abdominal Exam: Soft, Tenderness. absent: Distended, Firm, Guarding Additional comments: appropriately tender around incision - Neurological Exam Neurological Exam: Awake - Skin Skin Exam: Intact, Warm Assessment and Plan - Assessment and Plan (Free Text) Assessment: 62F distal jan-gastrectomy w/ bill carvajal II gastrojejunostomy POD#1 Plan: Continue to monitor drain outputs monitor vitals weaning trials pain control and anti-emetic PRN f/u AM labs GI/DVT ppx NGT to suction NPO d/w Dr. Sandor Lino PGY1
[2017-12-25] MEDS: Ciprofloxacin 400mg/200ml D5W 400 MG/200 ML BAG IVPB SCH ×2 (00:09→11:54)
[2017-12-25] MEDS: metroNIDAZOLE IV 500 mg/100 ml 500 MG/100 ML BAG IVPB SCH ×3 (05:32→21:25)
[2017-12-25 05:36] LABS: ABG ALLEN TEST POS; ARTERIAL BLOOD GAS HCO3 27.3 mmol/L (21-28); ARTERIAL BLOOD GAS HEMOGLOBIN 9.7 g/dL (11.7-17.4); ARTERIAL BLOOD GAS O2 SAT 99.2 % (95-98); ARTERIAL BLOOD GAS PCO2 47 mm/Hg (35-45); ARTERIAL BLOOD GAS PH 7.39 (7.35-7.45); ARTERIAL BLOOD GAS PO2 95 mm/Hg (80-100); ARTERIAL BLOOD GAS TCO2 29.9 mmol/L (22-28)
[2017-12-25 06:44] LABS: BASO % 0.1 % (0.0-2.0); HEMOGLOBIN 10.1 g/dL (11.0-16.0); LYMPH # 0.7 K/uL (1.0-4.3); LYMPH % 4.3 % (20.0-40.0); MEAN CELL VOLUME 86.1 fL (81.0-99.0); MEAN CORPUSCULAR HEMOGLOBIN 29.3 pg (27.0-31.0); MEAN CORPUSCULAR HGB CONC 34.1 g/dL (33.0-37.0); MEAN PLATELET VOLUME 8.9 fL (7.2-11.7); MONO # 1.1 K/uL (0.0-0.8); MONO % 7.2 % (0.0-10.0); NEUT # 14.1 K/uL (1.8-7.0); NEUT % 88.4 % (50.0-75.0); PLATELET COUNT 151 K/uL (130-400); RBC 3.45 Mil/uL (3.80-5.20); RED CELL DISTRIBUTION WIDTH 14.3 % (11.5-14.5); WHITE BLOOD COUNT 15.9 K/uL (4.8-10.8)
[2017-12-25 07:30] LABS: BLOOD UREA NITROGEN 31 mg/dL (7-17); GFR AFRICAN-AMERICAN > 60; GFR NON-AFRICAN AMERICAN > 60
[2017-12-25 07:31] LABS: ALB/GLOB RATIO 1.1 (1.0-2.1); ALBUMIN 2.1 g/dL (3.5-5.0); ALT/SGPT 31 U/L (9-52); AST/SGOT 30 U/L (14-36); CALCIUM 7.3 mg/dl (8.6-10.4)
--- NOTE | 2017-12-25 07:34 | OP ---
DATE OF PROCEDURE: 12/23/2017. PREOPERATIVE DIAGNOSIS: Acute abdomen possible disruption of a Khanh patch initially put in 3 days ago. PROCEDURES PERFORMED: Exploratory laparotomy, peritoneal lavage and hemigastrectomy. FINDINGS OF SURGERY: There was tremendous amount of bilious fluid noted in the peritoneal cavity distending the abdomen. Large amount of reddening and purple discoloration located mostly in the lower small bowel near the pelvis. In the stomach the old patch that was placed was disrupted and only the tube was remaining and the ulcer was less likely bigger at this point compared to the last operation and it does not seem like it had an signs of healing at all. The stomach is also very it is purplish in color and appears to be very inflamed ; however, the duodenum is free, the rest of the stomach was free of any real adhesions. The liver appeared to be within normal limits. PROCEDURE: Under general anesthesia, the patient was prepared and draped in the usual sterile fashion. The old elsa were then removed and the old sutures was also removed. The peritoneal cavity was entered and the above findings were demonstrated. First the suctioning of the abdomen was done, removing all the bilious fluid that was noted inside it. Then attention was focused on the epigastric area where there was the previous ulcer repair with a Khanh patch as previously described, because of the appearance and looks like it is bigger than it was before and with no signs of healing whatsoever, we decided that we have to do a definitive procedure for this patient to cure her ulcer. Therefore, a gastrectomy was considered. First the epigastric vessels were secured with the LigaSure to free of the lesser curvature of the stomach. The greater curvature, vessels from the mid portion of the stomach down in to the duodenum where then secured with the LigaSure. The duodenum was freed beyond the ulcer that was present and it was transected with the aid of the AutoSuture model TA 60. The proximal portion which is the stomach was then also transected at the mid portion with a large TA 60, it was then transected, the distal portion was removed and anastomosis was performed by first identifying the ligament of Treitz and a short portion of the jejunum was then hooked up inferiorly and hooked up to the stomach in a fashion. The opening of the enterostomy anastomosis was closed with a AutoSuture model TA 60. Attention was then focused on the rest of the area, where tremendous amount of copious saline solution was then used to irrigate the abdomen . Two drains were left in place, one in the pelvis and one around the area of the anastomosis. The estimated blood loss for the procedure approximates about 150 mL. The patient tolerated the procedure well and left the operating room in good condition. Luciano Patten MD
--- NOTE | 2017-12-25 08:07 | CP.PCM.PN ---
Objective - Vital Signs/Intake and Output Vital Signs (last 24 hours): Temp Pulse Resp BP Pulse Ox 98.5 F 89 16 102/60 94 L 12/25/17 04:00 12/25/17 07:57 12/25/17 07:57 12/25/17 07:57 12/25/17 07:57 Intake and Output: 12/25/17 12/25/17 06:59 18:59 Intake Total 1774.4 121.2 Output Total 1050 205 Balance 724.4 -83.8 - Medications Medications: Current Medications Enoxaparin Sodium (Lovenox) 40 mg SC DAILY [facility] Last Admin: 12/24/17 10:25 Dose: 40 mg Famotidine (Pepcid) 20 mg IVP Q12 [facility] Last Admin: 12/24/17 21:27 Dose: 20 mg Guaifenesin (Robitussin) 100 mg PO Q4H PRN PRN Reason: Cough Last Admin: 12/22/17 04:27 Dose: 100 mg Ciprofloxacin (Cipro 400mg/200ml Dsw) 400 mg in 200 mls @ 133 mls/hr IVPB Q12H [facility] Last Admin: 12/25/17 00:09 Dose: 133 mls/hr Metronidazole (Flagyl) 500 mg in 100 mls @ 100 mls/hr IVPB Q8 [facility] Last Admin: 12/25/17 05:32 Dose: 100 mls/hr Fentanyl Citrate 2,500 mcg/ (Sodium Chloride) 250 mls @ 10.52 mls/hr IV .[id number] [facility]; 2 MCG/KG/HR PRN Reason: Protocol Last Admin: 12/25/17 00:08 Dose: 4 mcg/kg/hr, 21.04 mls/hr Lactated Ringer's (Lactated Ringer's) 1,000 mls @ 100 mls/hr IV .Q10H [facility] Last Admin: 12/24/17 20:57 Dose: 100 mls/hr Morphine Sulfate (Morphine) 4 mg IVP Q4H PRN PRN Reason: Pain, moderate (4-7) Nicotine (Nicoderm Cq) 1 patch TD DAILY [facility] Last Admin: 12/24/17 10:26 Dose: 1 patch Ondansetron HCl (Zofran Inj) 4 mg IVP Q4H PRN PRN Reason: Nausea/Vomiting - Labs Labs: 12/25/17 06:36 12/25/17 06:28 PT 18.2 SECONDS (9.7-12.2) H 12/21/17 04:16 INR 1.6 12/21/17 04:16 APTT 31 SECONDS (21-34) 12/21/17 04:16
--- NOTE | 2017-12-25 08:23 | CP.PCM.PN ---
Subjective - Date & Time of Evaluation Date of Evaluation: 12/25/17 Time of Evaluation: 08:11 - Subjective Subjective: General Surgery: Dr Patten Pt S&E in ICU. Remains intubated. Unsedated. Pt is awake and alert. Answers questions appropriately. Denies any significant pain. Pt making adequate urine output. Drain output has been minimal from anastomotic drain. Pelvis drain with ~600 which is appropriate. tolerating CPAP. Pt had CT scan yesterday which shows significant right sided pleural effusion. Plan per ICU for thoracentesis today, and possible extubation to follow. Objective - Vital Signs/Intake and Output Vital Signs (last 24 hours): Temp Pulse Resp BP Pulse Ox 98.5 F 89 16 102/60 94 L 12/25/17 04:00 12/25/17 07:57 12/25/17 07:57 12/25/17 07:57 12/25/17 07:57 Intake and Output: 12/25/17 12/25/17 06:59 18:59 Intake Total 1774.4 121.2 Output Total 1050 205 Balance 724.4 -83.8 - Medications Medications: Current Medications Enoxaparin Sodium (Lovenox) 40 mg SC DAILY [facility] Last Admin: 12/24/17 10:25 Dose: 40 mg Famotidine (Pepcid) 20 mg IVP Q12 [facility] Last Admin: 12/24/17 21:27 Dose: 20 mg Guaifenesin (Robitussin) 100 mg PO Q4H PRN PRN Reason: Cough Last Admin: 12/22/17 04:27 Dose: 100 mg Ciprofloxacin (Cipro 400mg/200ml Dsw) 400 mg in 200 mls @ 133 mls/hr IVPB Q12H [facility] Last Admin: 12/25/17 00:09 Dose: 133 mls/hr Metronidazole (Flagyl) 500 mg in 100 mls @ 100 mls/hr IVPB Q8 [facility] Last Admin: 12/25/17 05:32 Dose: 100 mls/hr Fentanyl Citrate 2,500 mcg/ (Sodium Chloride) 250 mls @ 10.52 mls/hr IV .[id number] AVILA; 2 MCG/KG/HR PRN Reason: Protocol Last Admin: 12/25/17 00:08 Dose: 4 mcg/kg/hr, 21.04 mls/hr Lactated Ringer's (Lactated Ringer's) 1,000 mls @ 100 mls/hr IV .Q10H [facility] Last Admin: 12/24/17 20:57 Dose: 100 mls/hr Morphine Sulfate (Morphine) 4 mg IVP Q4H PRN PRN Reason: Pain, moderate (4-7) Nicotine (Nicoderm Cq) 1 patch TD DAILY [facility] Last Admin: 12/24/17 10:26 Dose: 1 patch Ondansetron HCl (Zofran Inj) 4 mg IVP Q4H PRN PRN Reason: Nausea/Vomiting - Labs Labs: 12/25/17 06:36 12/25/17 06:28 PT 18.2 SECONDS (9.7-12.2) H 12/21/17 04:16 INR 1.6 12/21/17 04:16 APTT 31 SECONDS (21-34) 12/21/17 04:16 - Constitutional Appears: Non-toxic, No Acute Distress - Eye Exam Eye Exam: Normal appearance - ENT Exam Additional comments: NGT ~25cc billous - Respiratory Exam Respiratory Exam: absent: Accessory Muscle Use, Respiratory Distress - Cardiovascular Exam Cardiovascular Exam: REGULAR RHYTHM. absent: Tachycardia - GI/Abdominal Exam GI & Abdominal Exam: Soft, Tenderness (post-op and appropriate). absent: Distended, Firm, Guarding, Rigid Additional comments: incision c/d/i changed at bedside - Neurological Exam Neurological Exam: Alert, Awake, Oriented x3 - Psychiatric Exam Psychiatric exam: Normal Affect, Normal Mood - Skin Skin Exam: Normal Color, Warm Assessment and Plan - Assessment and Plan (Free Text) Assessment: 62F POD#2 s/p re-exploratory laparotomy w/ distal jan-gastrectomy and KENNY reconstruction Plan: cont NGT to LIS monitor drain outputs DVT prophylaxis pt to be tapped by ICU today, will f/u plans for extubation trend leukocytosis, cont abx if pt extubated will consider d/c dorita shelby d/w Dr Sandor Lowe, PGY3
[2017-12-25 08:59] LABS: BANDS 3 % (0-2); LYMPHOCYTE 2 % (20-40); MONOCYTE 3 % (0-10); NEUTROPHIL 92 % (50-75); PLATELET ESTIMATE NORMAL (NORMAL); TOTAL CELLS COUNTED 100
[2017-12-25] MEDS ORDERED: Magnesium Sulfate 1 gm in D5W 1 GM/100 ML BAG IVPB ONE ×2 (09:00→11:00)
[2017-12-25 09:01] LABS: HYPOCHROMIC SLIGHT; POLYCHROMIC SLIGHT
[2017-12-25] MEDS: Enoxaparin 40 mg Syringe SC SCH (10:44)
[2017-12-25] MEDS: Lactated Ringer's 1,000 ML IV SCH ×2 (10:44→10:52)
[2017-12-25 13:06] LABS: BODY FLUID TYPE PLEURAL
--- NOTE | 2017-12-25 13:38 | RAD ---
HISTORY: Post thora COMPARISON: Chest x-ray performed 12/24/17 TECHNIQUE: Chest, one view. FINDINGS: LUNGS: Endotracheal tube terminates approximately 0.9 cm above the stu. Nasogastric tube extends expected location of the stomach. Mild pulmonary venous congestion. Please note that chest x-ray has limited sensitivity for the detection of pulmonary masses. PLEURA: Probable small left pleural effusion. No definite pneumothorax . CARDIOVASCULAR: Heart size appears within normal limits. Dense atherosclerotic calcifications of the aorta. OSSEOUS STRUCTURES: Degenerative changes. VISUALIZED UPPER ABDOMEN: Elevation of the right hemidiaphragm. OTHER FINDINGS: None. IMPRESSION: Endotracheal tube terminates approximately 0.9 cm above the stu (suggest repositioning to approximately 3 cm above the stu). Nasogastric tube extends to the expected location of the stomach. Mild pulmonary venous congestion. Probable small left pleural effusion. Line placement discussed with the EUSEBIO Willoughby 12/25/17 at 1:35 p.m..
[2017-12-25 13:54] LABS: BF GROSS APPEARANCE SL CLOUDY (CLEAR)
[2017-12-25 13:55] LABS: BODY FLUID MONO/MACROPHAGE 3 % (0-0)
--- NOTE | 2017-12-25 15:02 | CP.CCUPN ---
<Moise Ortega - Last Filed: 12/25/17 14:59> CCU Subjective - Physician Review Subjective (Free Text): 12/24/17 14:15 patient seen and examined at bedside tolerating CPAP all day CT scan to eval for possible pleural effusion Plan for extubation 12/25/17 14:59 patient seen and examined thoracentesis today extubated today CCU Objective - Vital Signs / Intake & Output Vital Signs (Last 4 hours): Vital Signs Pulse Resp Pulse Ox 12/25/17 11:00 97 H 15 93 L Intake and Output (Last 8hrs): Intake & Output 12/24/17 12/25/17 12/25/17 22:59 06:59 14:59 Intake Total 969.9 1289.6 371.2 Output Total 1215 755 205 Balance -245.1 534.6 166.2 Weight 121 lb 7.595 oz Intake: IV 250 250 Intake, IV Amount 969.9 1039.6 121.2 Right Forearm 169.9 169.6 21.2 right wrist 800 870 100 Output: Gastric Amount 550 150 150 Left Nares 550 150 150 Drainage 380 305 55 LEFT 360 290 40 RIGHT GARY 20 15 15 Urine 285 300 2-way Urethral 285 300 - Medications Active Medications: Active Medications Generic Name Dose Route Start Last Admin Trade Name Freq PRN Reason Stop Dose Admin Enoxaparin Sodium 40 mg 12/22/17 10:00 12/25/17 10:44 Lovenox SC 40 mg DAILY [facility] Administration Famotidine 20 mg 12/24/17 10:00 12/25/17 10:44 Pepcid IVP 20 mg Q12 [facility] Administration Guaifenesin 100 mg 12/22/17 04:13 12/22/17 04:27 Robitussin PO 100 mg Q4H PRN Administration Cough Ciprofloxacin 400 mg in 200 mls @ 133 mls/hr 12/21/17 00:15 12/25/17 11:54 Cipro 400mg/200ml Dsw IVPB 133 mls/hr Q12H [facility] Administration Metronidazole 500 mg in 100 mls @ 100 mls/hr 12/21/17 06:00 12/25/17 05:32 Flagyl IVPB 100 mls/hr Q8 [facility] Administration Lactated Ringer's 1,000 mls @ 100 mls/hr 12/24/17 01:00 12/25/17 10:52 Lactated Ringer's IV Not Given .Q10H [facility] Morphine Sulfate 4 mg 12/20/17 23:56 Morphine IVP Q4H PRN Pain, moderate (4-7) Nicotine 1 patch 12/21/17 10:00 12/25/17 10:44 Nicoderm Cq TD 1 patch DAILY [facility] Administration Ondansetron HCl 4 mg 12/20/17 23:56 Zofran Inj IVP Q4H PRN Nausea/Vomiting - Patient Studies Lab Studies: Microbiology Studies 12/20/17 21:00 Blood Culture - Preliminary Blood NO GROWTH AFTER 4 DAYS 12/20/17 20:30 Blood Culture - Preliminary Blood NO GROWTH AFTER 4 DAYS Lab Studies 12/25/17 12/25/17 12/25/17 Range/Units 13:02 06:36 06:28 WBC 15.9 H D (4.8-10.8) K/uL RBC 3.45 L (3.80-5.20) Mil/uL Hgb 10.1 L (11.0-16.0) g/dL Hct 29.7 L (34.0-47.0) % MCV 86.1 (81.0-99.0) fL MCH 29.3 (27.0-31.0) pg MCHC 34.1 (33.0-37.0) g/dL RDW 14.3 (11.5-14.5) % Plt Count 151 (130-400) K/uL MPV 8.9 (7.2-11.7) fL Neut % (Auto) 88.4 H (50.0-75.0) % Lymph % (Auto) 4.3 L (20.0-40.0) % Miller % (Auto) 7.2 (0.0-10.0) % Eos % (Auto) 0.0 (0.0-4.0) % Baso % (Auto) 0.1 (0.0-2.0) % Neut # (Auto) 14.1 H (1.8-7.0) K/uL Lymph # (Auto) 0.7 L (1.0-4.3) K/uL Miller # (Auto) 1.1 H (0.0-0.8) K/uL Eos # (Auto) 0.0 (0.0-0.7) K/uL Baso # (Auto) 0.0 (0.0-0.2) K/uL Neutrophils % (Manual) 92 H (50-75) % Band Neutrophils % 3 H (0-2) % Lymphocytes % (Manual) 2 L (20-40) % Monocytes % (Manual) 3 (0-10) % Platelet Estimate Normal (NORMAL) Polychromasia Slight Hypochromasia (manual) Slight Puncture Site pCO2 (35-45) mm/Hg pO2 (80-100) mm/Hg HCO3 (21-28) mmol/L ABG pH (7.35-7.45) ABG Total CO2 (22-28) mmol/L ABG O2 Saturation (95-98) % ABG Base Excess (-2.0-3.0) mmol/L ABG Hemoglobin (11.7-17.4) g/dL ABG Carboxyhemoglobin (0.5-1.5) % POC ABG HHb (Measured) (0.0-5.0) % ABG Methemoglobin (0.0-3.0) % Anoop Test A-a O2 Difference mm/Hg Respiratory Index Hgb O2 Saturation (95.0-98.0) % Vent Mode Mechanical Rate FiO2 % Tidal Volume PEEP Sodium 136 (132-148) mmol/L Potassium 3.9 (3.6-5.2) mmol/L Chloride 101 (98-107) mmol/L Carbon Dioxide 29 (22-30) mmol/L Anion Gap 10 (10-20) BUN 31 H (7-17) mg/dL Creatinine 0.5 L (0.7-1.2) mg/dL Est GFR ( Amer) > 60 Est GFR (Non-Af Amer) > 60 Random Glucose 88 (65-105) mg/dL Calcium 7.3 L (8.6-10.4) mg/dl Phosphorus 2.6 (2.5-4.5) mg/dL Magnesium 1.8 (1.6-2.3) mg/dL Total Bilirubin 0.4 (0.2-1.3) mg/dL AST 30 (14-36) U/L ALT 31 (9-52) U/L Alkaline Phosphatase 37 L D (38-126) U/L Total Protein 4.0 L (6.3-8.3) g/dL Albumin 2.1 L (3.5-5.0) g/dL Globulin 1.9 L (2.2-3.9) gm/dL Albumin/Globulin Ratio 1.1 (1.0-2.1) Fluid Source Pleural Fluid Appearance Sl cloudy (CLEAR) Fluid WBC 338.0 H (0.0-300.0) /mm3 Fluid RBC 602.0 H (0.0-0.0) /mm3 Fluid Tot Cell Count TEST NOT PERFORMED Fluid Neutrophils 95.0 H (0-0) % Fluid Lymphocytes 2.0 H (0-0) % Fld Monocyte/Macrophag 3 H (0-0) % Fluid Comment 12/25/17 Range/Units 05:12 WBC (4.8-10.8) K/uL RBC (3.80-5.20) Mil/uL Hgb (11.0-16.0) g/dL Hct (34.0-47.0) % MCV (81.0-99.0) fL MCH (27.0-31.0) pg MCHC (33.0-37.0) g/dL RDW (11.5-14.5) % Plt Count (130-400) K/uL MPV (7.2-11.7) fL Neut % (Auto) (50.0-75.0) % Lymph % (Auto) (20.0-40.0) % Miller % (Auto) (0.0-10.0) % Eos % (Auto) (0.0-4.0) % Baso % (Auto) (0.0-2.0) % Neut # (Auto) (1.8-7.0) K/uL Lymph # (Auto) (1.0-4.3) K/uL Miller # (Auto) (0.0-0.8) K/uL Eos # (Auto) (0.0-0.7) K/uL Baso # (Auto) (0.0-0.2) K/uL Neutrophils % (Manual) (50-75) % Band Neutrophils % (0-2) % Lymphocytes % (Manual) (20-40) % Monocytes % (Manual) (0-10) % Platelet Estimate (NORMAL) Polychromasia Hypochromasia (manual) Puncture Site Rr pCO2 47 H (35-45) mm/Hg pO2 95 (80-100) mm/Hg HCO3 27.3 (21-28) mmol/L ABG pH 7.39 (7.35-7.45) ABG Total CO2 29.9 H (22-28) mmol/L ABG O2 Saturation 99.2 H (95-98) % ABG Base Excess 3.0 (-2.0-3.0) mmol/L ABG Hemoglobin 9.7 L (11.7-17.4) g/dL ABG Carboxyhemoglobin 2.0 H (0.5-1.5) % POC ABG HHb (Measured) 0.8 (0.0-5.0) % ABG Methemoglobin 1.4 (0.0-3.0) % Anoop Test Pos A-a O2 Difference 203.0 mm/Hg Respiratory Index 2.1 Hgb O2 Saturation 95.8 (95.0-98.0) % Vent Mode Prvc Mechanical Rate 16 FiO2 50.0 % Tidal Volume 450 PEEP 5 Sodium (132-148) mmol/L Potassium (3.6-5.2) mmol/L Chloride (98-107) mmol/L Carbon Dioxide (22-30) mmol/L Anion Gap (10-20) BUN (7-17) mg/dL Creatinine (0.7-1.2) mg/dL Est GFR ( Amer) Est GFR (Non-Af Amer) Random Glucose (65-105) mg/dL Calcium (8.6-10.4) mg/dl Phosphorus (2.5-4.5) mg/dL Magnesium (1.6-2.3) mg/dL Total Bilirubin (0.2-1.3) mg/dL AST (14-36) U/L ALT (9-52) U/L Alkaline Phosphatase (38-126) U/L Total Protein (6.3-8.3) g/dL Albumin (3.5-5.0) g/dL Globulin (2.2-3.9) gm/dL Albumin/Globulin Ratio (1.0-2.1) Fluid Source Fluid Appearance (CLEAR) Fluid WBC (0.0-300.0) /mm3 Fluid RBC (0.0-0.0) /mm3 Fluid Tot Cell Count Fluid Neutrophils (0-0) % Fluid Lymphocytes (0-0) % Fld Monocyte/Macrophag (0-0) % Fluid Comment Laboratory Results - last 24 hr 12/25/17 12/25/17 12/25/17 05:12 06:28 06:36 WBC 15.9 H D RBC 3.45 L Hgb 10.1 L Hct 29.7 L MCV 86.1 MCH 29.3 MCHC 34.1 RDW 14.3 Plt Count 151 MPV 8.9 Neut % (Auto) 88.4 H Lymph % (Auto) 4.3 L Miller % (Auto) 7.2 Eos % (Auto) 0.0 Baso % (Auto) 0.1 Neut # (Auto) 14.1 H Lymph # (Auto) 0.7 L Miller # (Auto) 1.1 H Eos # (Auto) 0.0 Baso # (Auto) 0.0 Neutrophils % (Manual) 92 H Band Neutrophils % 3 H Lymphocytes % (Manual) 2 L Monocytes % (Manual) 3 Platelet Estimate Normal Polychromasia Slight Hypochromasia (manual) Slight Puncture Site Rr pCO2 47 H pO2 95 HCO3 27.3 ABG pH 7.39 ABG Total CO2 29.9 H ABG O2 Saturation 99.2 H ABG Base Excess 3.0 ABG Hemoglobin 9.7 L ABG Carboxyhemoglobin 2.0 H POC ABG HHb (Measured) 0.8 ABG Methemoglobin 1.4 Anoop Test Pos A-a O2 Difference 203.0 Respiratory Index 2.1 Hgb O2 Saturation 95.8 Vent Mode Prvc Mechanical Rate 16 FiO2 50.0 Tidal Volume 450 PEEP 5 Sodium 136 Potassium 3.9 Chloride 101 Carbon Dioxide 29 Anion Gap 10 BUN 31 H Creatinine 0.5 L Est GFR ( Amer) > 60 Est GFR (Non-Af Amer) > 60 Random Glucose 88 Calcium 7.3 L Phosphorus 2.6 Magnesium 1.8 Total Bilirubin 0.4 AST 30 ALT 31 Alkaline Phosphatase 37 L D Total Protein 4.0 L Albumin 2.1 L Globulin 1.9 L Albumin/Globulin Ratio 1.1 Fluid Source Fluid Appearance Fluid WBC Fluid RBC Fluid Tot Cell Count Fluid Neutrophils Fluid Lymphocytes Fld Monocyte/Macrophag Fluid Comment 12/25/17 13:02 WBC RBC Hgb Hct MCV MCH MCHC RDW Plt Count MPV Neut % (Auto) Lymph % (Auto) Miller % (Auto) Eos % (Auto) Baso % (Auto) Neut # (Auto) Lymph # (Auto) Miller # (Auto) Eos # (Auto) Baso # (Auto) Neutrophils % (Manual) Band Neutrophils % Lymphocytes % (Manual) Monocytes % (Manual) Platelet Estimate Polychromasia Hypochromasia (manual) Puncture Site pCO2 pO2 HCO3 ABG pH ABG Total CO2 ABG O2 Saturation ABG Base Excess ABG Hemoglobin ABG Carboxyhemoglobin POC ABG HHb (Measured) ABG Methemoglobin Anoop Test A-a O2 Difference Respiratory Index Hgb O2 Saturation Vent Mode Mechanical Rate FiO2 Tidal Volume PEEP Sodium Potassium Chloride Carbon Dioxide Anion Gap BUN Creatinine Est GFR ( Amer) Est GFR (Non-Af Amer) Random Glucose Calcium Phosphorus Magnesium Total Bilirubin AST ALT Alkaline Phosphatase Total Protein Albumin Globulin Albumin/Globulin Ratio Fluid Source Pleural Fluid Appearance Sl cloudy Fluid WBC 338.0 H Fluid RBC 602.0 H Fluid Tot Cell Count TEST NOT PERFORMED Fluid Neutrophils 95.0 H Fluid Lymphocytes 2.0 H Fld Monocyte/Macrophag 3 H Fluid Comment Critical Care Progress Note - Nutrition Nutrition: Nutrition Category Date Time Status NPO Diet [DIET] Diets 12/23/17 Breakfast Active Assessment/Plan - Assessment and Plan (Free Text) Assessment: 62F distal jan-gastrectomy w/ bill carvajal II gastrojejunostomy POD 2 Plan: Neuro: No acute issues Cards: No acute issues Pulm: Extubated today, thoracentesis today with 800 out. Follow up fluid studies. Robitussin for cough Renal: No acute issues GI: distal jan-gastrectomy w/ bill carvajal II gastrojejunostomy POD 2. Monitor IVY output. Cipro Q12/Flagyl Q8. Morphine for pain PPX: Protonix/Lovenox <Justa Woo - Last Filed: 12/25/17 16:43> CCU Subjective - Physician Review Critical Care Time Spent (in minutes): 35 CCU Objective - Vital Signs / Intake & Output Intake and Output (Last 8hrs): Intake & Output 12/25/17 12/25/17 12/25/17 06:59 14:59 22:59 Intake Total 1289.6 371.2 Output Total 755 205 Balance 534.6 166.2 Weight 121 lb 7.595 oz Intake: IV 250 250 Intake, IV Amount 1039.6 121.2 Right Forearm 169.6 21.2 right wrist 870 100 Output: Gastric Amount 150 150 Left Nares 150 150 Drainage 305 55 LEFT 290 40 RIGHT GARY 15 15 Urine 300 2-way Urethral 300 - Medications Active Medications: Active Medications Generic Name Dose Route Start Last Admin Trade Name Freq PRN Reason Stop Dose Admin Enoxaparin Sodium 40 mg 12/22/17 10:00 12/25/17 10:44 Lovenox SC 40 mg DAILY [facility] Administration Famotidine 20 mg 12/24/17 10:00 12/25/17 10:44 Pepcid IVP 20 mg Q12 [facility] Administration Ciprofloxacin 400 mg in 200 mls @ 133 mls/hr 12/21/17 00:15 12/25/17 11:54 Cipro 400mg/200ml Dsw IVPB 133 mls/hr Q12H [facility] Administration Metronidazole 500 mg in 100 mls @ 100 mls/hr 12/21/17 06:00 12/25/17 05:32 Flagyl IVPB 100 mls/hr Q8 [facility] Administration Lactated Ringer's 1,000 mls @ 100 mls/hr 12/24/17 01:00 12/25/17 10:52 Lactated Ringer's IV Not Given .Q10H [facility] Morphine Sulfate 2 mg 12/25/17 16:38 Morphine IVP Q6H PRN Pain, moderate (4-7) Nicotine 1 patch 12/21/17 10:00 12/25/17 10:44 Nicoderm Cq TD 1 patch DAILY [facility] Administration Ondansetron HCl 4 mg 12/20/17 23:56 Zofran Inj IVP Q4H PRN Nausea/Vomiting - Patient Studies Lab Studies: Microbiology Studies 12/20/17 21:00 Blood Culture - Preliminary Blood NO GROWTH AFTER 4 DAYS 12/20/17 20:30 Blood Culture - Preliminary Blood NO GROWTH AFTER 4 DAYS Lab Studies 12/25/17 12/25/17 12/25/17 Range/Units 13:02 06:36 06:28 WBC 15.9 H D (4.8-10.8) K/uL RBC 3.45 L (3.80-5.20) Mil/uL Hgb 10.1 L (11.0-16.0) g/dL Hct 29.7 L (34.0-47.0) % MCV 86.1 (81.0-99.0) fL MCH 29.3 (27.0-31.0) pg MCHC 34.1 (33.0-37.0) g/dL RDW 14.3 (11.5-14.5) % Plt Count 151 (130-400) K/uL MPV 8.9 (7.2-11.7) fL Neut % (Auto) 88.4 H (50.0-75.0) % Lymph % (Auto) 4.3 L (20.0-40.0) % Miller % (Auto) 7.2 (0.0-10.0) % Eos % (Auto) 0.0 (0.0-4.0) % Baso % (Auto) 0.1 (0.0-2.0) % Neut # (Auto) 14.1 H (1.8-7.0) K/uL Lymph # (Auto) 0.7 L (1.0-4.3) K/uL Miller # (Auto) 1.1 H (0.0-0.8) K/uL Eos # (Auto) 0.0 (0.0-0.7) K/uL Baso # (Auto) 0.0 (0.0-0.2) K/uL Neutrophils % (Manual) 92 H (50-75) % Band Neutrophils % 3 H (0-2) % Lymphocytes % (Manual) 2 L (20-40) % Monocytes % (Manual) 3 (0-10) % Platelet Estimate Normal (NORMAL) Polychromasia Slight Hypochromasia (manual) Slight Puncture Site pCO2 (35-45) mm/Hg pO2 (80-100) mm/Hg HCO3 (21-28) mmol/L ABG pH (7.35-7.45) ABG Total CO2 (22-28) mmol/L ABG O2 Saturation (95-98) % ABG Base Excess (-2.0-3.0) mmol/L ABG Hemoglobin (11.7-17.4) g/dL ABG Carboxyhemoglobin (0.5-1.5) % POC ABG HHb (Measured) (0.0-5.0) % ABG Methemoglobin (0.0-3.0) % Anoop Test A-a O2 Difference mm/Hg Respiratory Index Hgb O2 Saturation (95.0-98.0) % Vent Mode Mechanical Rate FiO2 % Tidal Volume PEEP Sodium 136 (132-148) mmol/L Potassium 3.9 (3.6-5.2) mmol/L Chloride 101 (98-107) mmol/L Carbon Dioxide 29 (22-30) mmol/L Anion Gap 10 (10-20) BUN 31 H (7-17) mg/dL Creatinine 0.5 L (0.7-1.2) mg/dL Est GFR ( Amer) > 60 Est GFR (Non-Af Amer) > 60 Random Glucose 88 (65-105) mg/dL Calcium 7.3 L (8.6-10.4) mg/dl Phosphorus 2.6 (2.5-4.5) mg/dL Magnesium 1.8 (1.6-2.3) mg/dL Total Bilirubin 0.4 (0.2-1.3) mg/dL AST 30 (14-36) U/L ALT 31 (9-52) U/L Alkaline Phosphatase 37 L D (38-126) U/L Total Protein 4.0 L (6.3-8.3) g/dL Albumin 2.1 L (3.5-5.0) g/dL Globulin 1.9 L (2.2-3.9) gm/dL Albumin/Globulin Ratio 1.1 (1.0-2.1) Fluid Source Pleural Fluid Appearance Sl cloudy (CLEAR) Fluid WBC 338.0 H (0.0-300.0) /mm3 Fluid RBC 602.0 H (0.0-0.0) /mm3 Fluid Tot Cell Count TEST NOT PERFORMED Fluid Neutrophils 95.0 H (0-0) % Fluid Lymphocytes 2.0 H (0-0) % Fld Monocyte/Macrophag 3 H (0-0) % Fluid Comment 12/25/17 Range/Units 05:12 WBC (4.8-10.8) K/uL RBC (3.80-5.20) Mil/uL Hgb (11.0-16.0) g/dL Hct (34.0-47.0) % MCV (81.0-99.0) fL MCH (27.0-31.0) pg MCHC (33.0-37.0) g/dL RDW (11.5-14.5) % Plt Count (130-400) K/uL MPV (7.2-11.7) fL Neut % (Auto) (50.0-75.0) % Lymph % (Auto) (20.0-40.0) % Miller % (Auto) (0.0-10.0) % Eos % (Auto) (0.0-4.0) % Baso % (Auto) (0.0-2.0) % Neut # (Auto) (1.8-7.0) K/uL Lymph # (Auto) (1.0-4.3) K/uL Miller # (Auto) (0.0-0.8) K/uL Eos # (Auto) (0.0-0.7) K/uL Baso # (Auto) (0.0-0.2) K/uL Neutrophils % (Manual) (50-75) % Band Neutrophils % (0-2) % Lymphocytes % (Manual) (20-40) % Monocytes % (Manual) (0-10) % Platelet Estimate (NORMAL) Polychromasia Hypochromasia (manual) Puncture Site Rr pCO2 47 H (35-45) mm/Hg pO2 95 (80-100) mm/Hg HCO3 27.3 (21-28) mmol/L ABG pH 7.39 (7.35-7.45) ABG Total CO2 29.9 H (22-28) mmol/L ABG O2 Saturation 99.2 H (95-98) % ABG Base Excess 3.0 (-2.0-3.0) mmol/L ABG Hemoglobin 9.7 L (11.7-17.4) g/dL ABG Carboxyhemoglobin 2.0 H (0.5-1.5) % POC ABG HHb (Measured) 0.8 (0.0-5.0) % ABG Methemoglobin 1.4 (0.0-3.0) % Anoop Test Pos A-a O2 Difference 203.0 mm/Hg Respiratory Index 2.1 Hgb O2 Saturation 95.8 (95.0-98.0) % Vent Mode Prvc Mechanical Rate 16 FiO2 50.0 % Tidal Volume 450 PEEP 5 Sodium (132-148) mmol/L Potassium (3.6-5.2) mmol/L Chloride (98-107) mmol/L Carbon Dioxide (22-30) mmol/L Anion Gap (10-20) BUN (7-17) mg/dL Creatinine (0.7-1.2) mg/dL Est GFR ( Amer) Est GFR (Non-Af Amer) Random Glucose (65-105) mg/dL Calcium (8.6-10.4) mg/dl Phosphorus (2.5-4.5) mg/dL Magnesium (1.6-2.3) mg/dL Total Bilirubin (0.2-1.3) mg/dL AST (14-36) U/L ALT (9-52) U/L Alkaline Phosphatase (38-126) U/L Total Protein (6.3-8.3) g/dL Albumin (3.5-5.0) g/dL Globulin (2.2-3.9) gm/dL Albumin/Globulin Ratio (1.0-2.1) Fluid Source Fluid Appearance (CLEAR) Fluid WBC (0.0-300.0) /mm3 Fluid RBC (0.0-0.0) /mm3 Fluid Tot Cell Count Fluid Neutrophils (0-0) % Fluid Lymphocytes (0-0) % Fld Monocyte/Macrophag (0-0) % Fluid Comment Laboratory Results - last 24 hr 12/25/17 12/25/17 12/25/17 05:12 06:28 06:36 WBC 15.9 H D RBC 3.45 L Hgb 10.1 L Hct 29.7 L MCV 86.1 MCH 29.3 MCHC 34.1 RDW 14.3 Plt Count 151 MPV 8.9 Neut % (Auto) 88.4 H Lymph % (Auto) 4.3 L Miller % (Auto) 7.2 Eos % (Auto) 0.0 Baso % (Auto) 0.1 Neut # (Auto) 14.1 H Lymph # (Auto) 0.7 L Miller # (Auto) 1.1 H Eos # (Auto) 0.0 Baso # (Auto) 0.0 Neutrophils % (Manual) 92 H Band Neutrophils % 3 H Lymphocytes % (Manual) 2 L Monocytes % (Manual) 3 Platelet Estimate Normal Polychromasia Slight Hypochromasia (manual) Slight Puncture Site Rr pCO2 47 H pO2 95 HCO3 27.3 ABG pH 7.39 ABG Total CO2 29.9 H ABG O2 Saturation 99.2 H ABG Base Excess 3.0 ABG Hemoglobin 9.7 L ABG Carboxyhemoglobin 2.0 H POC ABG HHb (Measured) 0.8 ABG Methemoglobin 1.4 Anoop Test Pos A-a O2 Difference 203.0 Respiratory Index 2.1 Hgb O2 Saturation 95.8 Vent Mode Prvc Mechanical Rate 16 FiO2 50.0 Tidal Volume 450 PEEP 5 Sodium 136 Potassium 3.9 Chloride 101 Carbon Dioxide 29 Anion Gap 10 BUN 31 H Creatinine 0.5 L Est GFR ( Amer) > 60 Est GFR (Non-Af Amer) > 60 Random Glucose 88 Calcium 7.3 L Phosphorus 2.6 Magnesium 1.8 Total Bilirubin 0.4 AST 30 ALT 31 Alkaline Phosphatase 37 L D Total Protein 4.0 L Albumin 2.1 L Globulin 1.9 L Albumin/Globulin Ratio 1.1 Fluid Source Fluid Appearance Fluid WBC Fluid RBC Fluid Tot Cell Count Fluid Neutrophils Fluid Lymphocytes Fld Monocyte/Macrophag Fluid Comment 12/25/17 13:02 WBC RBC Hgb Hct MCV MCH MCHC RDW Plt Count MPV Neut % (Auto) Lymph % (Auto) Miller % (Auto) Eos % (Auto) Baso % (Auto) Neut # (Auto) Lymph # (Auto) Miller # (Auto) Eos # (Auto) Baso # (Auto) Neutrophils % (Manual) Band Neutrophils % Lymphocytes % (Manual) Monocytes % (Manual) Platelet Estimate Polychromasia Hypochromasia (manual) Puncture Site pCO2 pO2 HCO3 ABG pH ABG Total CO2 ABG O2 Saturation ABG Base Excess ABG Hemoglobin ABG Carboxyhemoglobin POC ABG HHb (Measured) ABG Methemoglobin Anoop Test A-a O2 Difference Respiratory Index Hgb O2 Saturation Vent Mode Mechanical Rate FiO2 Tidal Volume PEEP Sodium Potassium Chloride Carbon Dioxide Anion Gap BUN Creatinine Est GFR ( Amer) Est GFR (Non-Af Amer) Random Glucose Calcium Phosphorus Magnesium Total Bilirubin AST ALT Alkaline Phosphatase Total Protein Albumin Globulin Albumin/Globulin Ratio Fluid Source Pleural Fluid Appearance Sl cloudy Fluid WBC 338.0 H Fluid RBC 602.0 H Fluid Tot Cell Count TEST NOT PERFORMED Fluid Neutrophils 95.0 H Fluid Lymphocytes 2.0 H Fld Monocyte/Macrophag 3 H Fluid Comment Critical Care Progress Note - Nutrition Nutrition: Nutrition Category Date Time Status NPO Diet [DIET] Diets 12/23/17 Breakfast Active Assessment/Plan - Assessment and Plan (Free Text) Plan: Above resident note reviewed and verified. POD #2 distal jan-gastrectomy w/ bill carvajal II gastrojejunostomy: NG to suction as per surgery -pleural effusion: a/p thoracentesis ?transudate/?exudate -tolerated CPAP, extubated -monitor BGM q6hrs, ISS/aspart -cc time 35 minutes -PT/OT -advance diet when (+)flatus - Date & Time Date: 12/25/17 Time: 16:43
--- NOTE | 2017-12-25 16:43 | PCM.PROC ---
<Moise Ortega - Last Filed: 12/25/17 16:42> Procedures Attestation:: I certify that I have explained the specified Operation(s) or Procedure(s), risks, benefits and reasonable alternatives to the Patient and/or other person responsible. The opportunity was given to ask questions and all questions answered - Paracentesis Consent Obtained: verbal consent, written consent Time Out Performed: Yes Indication: other (thora) Procedure: therapeutic paracentesis Local Anesthetic Used: lidocaine 1% <Justa Woo - Last Filed: 12/25/17 16:49> Procedures Attestation:: I certify that I have explained the specified Operation(s) or Procedure(s), risks, benefits and reasonable alternatives to the Patient and/or other person responsible. The opportunity was given to ask questions and all questions answered - Paracentesis Indication: other
[2017-12-25] MEDS ORDERED: Lactated Ringer's 1,000 ML IV SCH (16:46)
[2017-12-25] MEDS: Albuterol-Ipratrop 3 mg / 0.5 (3 ml) UD INH SCH (20:55)
[2017-12-26] MEDS: Ciprofloxacin 400mg/200ml D5W 400 MG/200 ML BAG IVPB SCH (00:27)
[2017-12-26] MEDS: Albuterol-Ipratrop 3 mg / 0.5 (3 ml) UD INH SCH ×4 (01:32→20:21)
[2017-12-26] MEDS: metroNIDAZOLE IV 500 mg/100 ml 500 MG/100 ML BAG IVPB SCH (05:10)
[2017-12-26 06:30] LABS: BASO % 0.2 % (0.0-2.0); HEMOGLOBIN 9.7 g/dL (11.0-16.0); LYMPH # 0.7 K/uL (1.0-4.3); LYMPH % 4.2 % (20.0-40.0); MEAN CELL VOLUME 85.6 fL (81.0-99.0); MEAN CORPUSCULAR HGB CONC 33.9 g/dL (33.0-37.0); MEAN PLATELET VOLUME 8.4 fL (7.2-11.7); MONO # 0.9 K/uL (0.0-0.8); NEUT # 15.7 K/uL (1.8-7.0); NEUT % 90.6 % (50.0-75.0); NRBC % 0.2 % (0.0-2.0); PLATELET COUNT 168 K/uL (130-400); RBC 3.34 Mil/uL (3.80-5.20); RED CELL DISTRIBUTION WIDTH 14.3 % (11.5-14.5); WHITE BLOOD COUNT 17.4 K/uL (4.8-10.8)
[2017-12-26 06:45] LABS: ALB/GLOB RATIO 1.1 (1.0-2.1); ALBUMIN 2.2 g/dL (3.5-5.0); ALT/SGPT 34 U/L (9-52); AST/SGOT 25 U/L (14-36); BLOOD UREA NITROGEN 23 mg/dL (7-17); CALCIUM 7.3 mg/dl (8.6-10.4); GFR AFRICAN-AMERICAN > 60; GFR NON-AFRICAN AMERICAN > 60
[2017-12-26] MEDS ORDERED: Potassium Chloride 20 MEQ in Dextrose 5%/0.9% NS 1,000 ML IV ONE (08:43)
--- NOTE | 2017-12-26 08:48 | CP.PCM.PN ---
Subjective - Date & Time of Evaluation Date of Evaluation: 12/26/17 Time of Evaluation: 08:48 - Subjective Subjective: General Surgery: Dr Patten Pt S&E in ICU. Extubated yesterday. NAEO. Pt reports no abdominal pain. Denies any sob, chest pain or difficulty breathing. NGT remains in place with > 800cc over past 12 hours. Kevin output has been 25ml/hr. Da drains with 125 /250 R/L respectively, serosanguinous. Denies N/V. Denies flatus. has not yet been OOB. No incentive spirometer at bedside. Objective - Vital Signs/Intake and Output Vital Signs (last 24 hours): Temp Pulse Resp BP Pulse Ox 98.8 F 105 H 35 H 114/64 92 L 12/26/17 04:00 12/26/17 07:00 12/26/17 07:00 12/26/17 06:28 12/26/17 07:00 Intake and Output: 12/26/17 12/26/17 06:59 18:59 Intake Total 757 42 Output Total 1275 Balance -518 42 - Medications Medications: Current Medications Albuterol/Ipratropium (Duoneb 3 Mg/0.5 Mg (3 Ml) Ud) 3 ml INH RQ6 [facility] Last Admin: 12/26/17 07:12 Dose: 3 ml Enoxaparin Sodium (Lovenox) 40 mg SC DAILY [facility] Last Admin: 12/25/17 10:44 Dose: 40 mg Famotidine (Pepcid) 20 mg IVP Q12 [facility] Last Admin: 12/25/17 21:24 Dose: 20 mg Ciprofloxacin (Cipro 400mg/200ml Dsw) 400 mg in 200 mls @ 133 mls/hr IVPB Q12H [facility] Last Admin: 12/26/17 00:27 Dose: 133 mls/hr Lactated Ringer's (Lactated Ringer's) 1,000 mls @ 42 mls/hr IV .[id number] [facility] Last Admin: 12/25/17 16:46 Dose: 42 mls/hr Morphine Sulfate (Morphine) 2 mg IVP Q6H PRN PRN Reason: Pain, moderate (4-7) Nicotine (Nicoderm Cq) 1 patch TD DAILY [facility] Last Admin: 12/25/17 10:44 Dose: 1 patch Ondansetron HCl (Zofran Inj) 4 mg IVP Q4H PRN PRN Reason: Nausea/Vomiting - Labs Labs: 12/26/17 06:22 12/26/17 06:22 PT 18.2 SECONDS (9.7-12.2) H 12/21/17 04:16 INR 1.6 12/21/17 04:16 APTT 31 SECONDS (21-34) 12/21/17 04:16 - Constitutional Appears: Non-toxic, No Acute Distress - Eye Exam Eye Exam: Normal appearance - ENT Exam ENT Exam: Mucous Membranes Dry - Respiratory Exam Respiratory Exam: absent: Accessory Muscle Use, Respiratory Distress - Cardiovascular Exam Cardiovascular Exam: Tachycardia, REGULAR RHYTHM - GI/Abdominal Exam GI & Abdominal Exam: Soft. absent: Distended, Firm, Guarding, Rigid, Tenderness , Hernia, Mass Additional comments: incisions c/d/i see above for drain outputs - Extremities Exam Extremities Exam: absent: Calf Tenderness, Pedal Edema - Neurological Exam Neurological Exam: Alert, Awake, Oriented x3 - Psychiatric Exam Psychiatric exam: Normal Affect, Normal Mood - Skin Skin Exam: Normal Color, Warm Assessment and Plan - Assessment and Plan (Free Text) Assessment: 62F POD#3 s/p ex-lap w/ distal gastrectomy Plan: d/c kevin IV fluids changed to better compensate for GI losses OOB to chair incentive spirometer cont DVT/GI prophylaxis if pt is saturating well, ok for transfer to med/surg from our standpoint will order PT d/w Dr Sandor Lowe, PGY3
[2017-12-26 08:54] LABS: ANISOCYTOSIS SLIGHT; HYPOCHROMIC SLIGHT; LYMPHOCYTE 4 % (20-40); MONOCYTE 5 % (0-10); NEUTROPHIL 91 % (50-75); PLATELET ESTIMATE NORMAL (NORMAL); POLYCHROMIC SLIGHT; TOTAL CELLS COUNTED 100
[2017-12-26 08:55] LABS: OVALOCYTES SLIGHT
[2017-12-26] MEDS ORDERED: Piperacill/Tazo 3.375gm in Dex 3.375 GM/50 ML BAG IVPB SCH (09:45)
[2017-12-26] MEDS ORDERED: Theophylline 80 mg/15 ml Liq UD PO SCH (10:00)
[2017-12-26] MEDS: Enoxaparin 40 mg Syringe SC SCH (10:03)
[2017-12-26] MEDS ORDERED: Potassium Phosphate 15 MMOLE in Sodium Chloride 0.9% 250 ML IVPB ONE (10:15)
[2017-12-26] MEDS ORDERED: Metoprolol 1 mg/ml Inj IVP SCH (12:00)
--- NOTE | 2017-12-26 12:23 | RAD ---
HISTORY: f/u pleural effusion COMPARISON: Chest x-ray performed 12/25/17 TECHNIQUE: Chest, one view. FINDINGS: Examination limited by habitus and patient obliquity. Interval removal of the endotracheal tube. Nasogastric tube extends expected location of the stomach, distal tip excluded from view. LUNGS: Biapical pleural thickening. Layering right greater than left pleural effusions and associated consolidations. Mild pulmonary venous congestion. No definite pneumothorax. CARDIOVASCULAR: Borderline cardiomegaly. Atherosclerotic calcifications of the aortic knob. OSSEOUS STRUCTURES: Degenerative changes. VISUALIZED UPPER ABDOMEN: Unremarkable. OTHER FINDINGS: None. IMPRESSION: Interval removal of the endotracheal tube. Nasogastric tube extends expected location of the stomach, distal tip excluded from view. Biapical pleural thickening. Development of layering right greater than left pleural effusions and associated consolidations. Mild pulmonary venous congestion.
[2017-12-27] MEDS: Albuterol-Ipratrop 3 mg / 0.5 (3 ml) UD INH SCH ×3 (01:10→13:28)
--- NOTE | 2017-12-27 08:58 | CP.PCM.PN ---
Subjective - Date & Time of Evaluation Date of Evaluation: 12/27/17 Time of Evaluation: 08:56 - Subjective Subjective: General Surgery: Dr Patten Pt S&E. SUSY. Had NGT clamped all night. Minimal residuals. Denies N/V, F/C or pain. Not ambulating much. States she is hungry. Passing flatus. Objective - Vital Signs/Intake and Output Vital Signs (last 24 hours): Temp Pulse Resp BP Pulse Ox 98.4 F 110 H 18 124/78 98 12/27/17 07:50 12/27/17 08:22 12/27/17 07:50 12/27/17 07:50 12/27/17 07:50 Intake and Output: 12/27/17 12/27/17 06:59 18:59 Intake Total 600 Output Total 925 40 Balance -325 -40 - Medications Medications: Current Medications Albuterol/Ipratropium (Duoneb 3 Mg/0.5 Mg (3 Ml) Ud) 3 ml INH RQ6 [facility] Last Admin: 12/27/17 07:30 Dose: 3 ml Enoxaparin Sodium (Lovenox) 40 mg SC DAILY [facility] Last Admin: 12/26/17 10:03 Dose: 40 mg Famotidine (Pepcid) 20 mg IVP Q12 [facility] Last Admin: 12/26/17 21:25 Dose: 20 mg Morphine Sulfate (Morphine) 2 mg IVP Q6H PRN PRN Reason: Pain, moderate (4-7) Nicotine (Nicoderm Cq) 1 patch TD DAILY [facility] Last Admin: 12/26/17 10:04 Dose: 1 patch Ondansetron HCl (Zofran Inj) 4 mg IVP Q4H PRN PRN Reason: Nausea/Vomiting - Labs Labs: 12/26/17 06:22 12/26/17 06:22 PT 18.2 SECONDS (9.7-12.2) H 12/21/17 04:16 INR 1.6 12/21/17 04:16 APTT 31 SECONDS (21-34) 12/21/17 04:16 - Constitutional Appears: Non-toxic, No Acute Distress - ENT Exam ENT Exam: Mucous Membranes Moist - Respiratory Exam Respiratory Exam: absent: Accessory Muscle Use, Respiratory Distress - Cardiovascular Exam Cardiovascular Exam: REGULAR RHYTHM. absent: Tachycardia - GI/Abdominal Exam GI & Abdominal Exam: Soft. absent: Distended, Firm, Guarding, Rigid, Tenderness Additional comments: midline incision c/d/i chan 125 left 25 right - Neurological Exam Neurological Exam: Alert, Awake, Oriented x3 - Psychiatric Exam Psychiatric exam: Normal Affect, Normal Mood - Skin Skin Exam: Normal Color, Warm Assessment and Plan - Assessment and Plan (Free Text) Assessment: 62F POD#4 s/p ex lap w/ jan gastrectomy Plan: keep NGT clamped will start CLD f/u labs monitor for refeeding syndrome physical therapy d/w Dr Sandor Lowe, PGY3
[2017-12-27 09:17] LABS: BASO % 0.1 % (0.0-2.0); HEMOGLOBIN 10.2 g/dL (11.0-16.0); LYMPH # 0.8 K/uL (1.0-4.3); LYMPH % 3.2 % (20.0-40.0); MEAN CELL VOLUME 84.9 fL (81.0-99.0); MEAN CORPUSCULAR HEMOGLOBIN 28.6 pg (27.0-31.0); MEAN CORPUSCULAR HGB CONC 33.7 g/dL (33.0-37.0); MEAN PLATELET VOLUME 8.2 fL (7.2-11.7); MONO # 1.4 K/uL (0.0-0.8); MONO % 5.8 % (0.0-10.0); NEUT # 22.4 K/uL (1.8-7.0); NEUT % 90.9 % (50.0-75.0); NRBC % 0.1 % (0.0-2.0); PLATELET COUNT 268 K/uL (130-400); RBC 3.58 Mil/uL (3.80-5.20); RED CELL DISTRIBUTION WIDTH 14.1 % (11.5-14.5); WHITE BLOOD COUNT 24.6 K/uL (4.8-10.8)
[2017-12-27 09:23] LABS: ALBUMIN 2.3 g/dL (3.5-5.0); ALT/SGPT 27 U/L (9-52); AST/SGOT 22 U/L (14-36); BLOOD UREA NITROGEN 23 mg/dL (7-17); CALCIUM 7.5 mg/dl (8.6-10.4); GFR AFRICAN-AMERICAN > 60; GFR NON-AFRICAN AMERICAN > 60
[2017-12-27] MEDS: Enoxaparin 40 mg Syringe SC SCH (09:31)
[2017-12-27 10:18] LABS: LYMPHOCYTE 7 % (20-40); MONOCYTE 6 % (0-10); NEUTROPHIL 87 % (50-75); PLATELET ESTIMATE NORMAL (NORMAL); TOTAL CELLS COUNTED 100
[2017-12-27 10:19] LABS: ANISOCYTOSIS SLIGHT; OVALOCYTES SLIGHT
[2017-12-27] MEDS ORDERED: Potassium Chloride 20 mEq ER Tab PO ONE (12:00)
[2017-12-27] MEDS ORDERED: Iohexol 240 (50 ml) PO ONE (12:30)
[2017-12-27] MEDS: Potassium Chl 40 mEq in D5-1/2 1,000 ML IV SCH ×2 (13:00→21:28)
[2017-12-27] MEDS: Ciprofloxacin 400mg/200ml D5W 400 MG/200 ML BAG IVPB SCH (14:05)
--- NOTE | 2017-12-27 14:13 | RAD ---
HISTORY: leukocytosis COMPARISON: Chest radiograph dated 12/26/2017. FINDINGS: LUNGS: Pulmonary vascular congestion/ edema. Triangular-shaped atelectasis versus consolidation in the right midlung. PLEURA: Small bilateral pleural effusions. No pneumothorax apparent. CARDIOVASCULAR: Atherosclerotic aortic calcifications. Cardiomediastinal silhouette unchanged. OSSEOUS STRUCTURES: Unchanged. VISUALIZED UPPER ABDOMEN: Retained oral contrast in the stomach. Partially imaged midline abdominal skin elsa. OTHER FINDINGS: Enteric tube, unchanged. IMPRESSION: Right midlung triangular-shaped atelectasis versus consolidation. Pulmonary vascular congestion and small bilateral pleural effusions.
--- NOTE | 2017-12-27 15:40 | CT ---
PROCEDURE: CT Abdomen and Pelvis without intravenous contrast HISTORY: r/o anastamotic leak COMPARISON: CT scan of the chest, abdomen and pelvis dated 12/24/2017. TECHNIQUE: Contiguous images were obtained from the domes of the diaphragms to the upper thighs without the administration of intravenous contrast. Oral contrast was administered. Radiation dose: Total exam DLP = 364.5 mGy-cm. This CT exam was performed using one or more of the following dose reduction techniques: Automated exposure control, adjustment of the mA and/or kV according to patient size, and/or use of iterative reconstruction technique. FINDINGS: LOWER THORAX: Right middle lobe atelectasis/consolidation. Moderate bilateral pleural effusions with associated atelectasis. . LIVER: Multiple low-density lesions redemonstrated. No gross lesion or ductal dilatation. GALLBLADDER AND BILE DUCTS: Relatively collapsed with likely reactive gallbladder wall thickening. PANCREAS: Unremarkable. No gross lesion or ductal dilatation. SPLEEN: Unremarkable. ADRENALS: Unremarkable. No mass. KIDNEYS AND URETERS: Unremarkable. No hydronephrosis. No solid mass. VASCULATURE: Calcific atherosclerosis. No aortic aneurysm. BOWEL: Enteric tube terminating in the proximal efferent limb. Prior Billroth 2 gastrojejunostomy. No obstruction or evidence of anastomotic leak. No gross mural thickening. APPENDIX: Not well-visualized. PERITONEUM: Two surgical drains, 1 terminating in the right lower quadrant and the other in the left upper quadrant. Small volume perihepatic ascites. No free air. LYMPH NODES: Unremarkable. No enlarged lymph nodes. BLADDER: Distended with fluid with small amount of anti dependent air, likely related to recent instrumentation. REPRODUCTIVE: Bulky fibroid uterus. BONES: No acute fracture. OTHER FINDINGS: None. IMPRESSION: No evidence of an anastomotic leak. Moderate bilateral pleural effusions. Additional findings as above.
[2017-12-27] MEDS: metroNIDAZOLE IV 500 mg/100 ml 500 MG/100 ML BAG IVPB SCH ×2 (16:11→22:59)
[2017-12-28 00:34] LABS: SQUAMOUS EPITHIAL 3 /hpf (0-5); URINE BILIRUBIN NEGATIVE (NEGATIVE); URINE BLOOD 2+ (NEGATIVE); URINE CLARITY Hazy (Clear); URINE COLOR Amber (YELLOW); URINE GLUCOSE (UA) 1+ mg/dL (Normal); URINE LEUKOCYTE ESTERASE NEG Leu/uL (Negative); URINE PROTEIN NEGATIVE (NEGATIVE); URINE UROBILINOGEN NORMAL mg/dL (0.2-1.0)
[2017-12-28] MEDS: Ciprofloxacin 400mg/200ml D5W 400 MG/200 ML BAG IVPB SCH ×2 (01:00→13:26)
[2017-12-28] MEDS: Albuterol-Ipratrop 3 mg / 0.5 (3 ml) UD INH SCH ×4 (02:22→19:23)
[2017-12-28 02:46] LABS: AMYLASE PLEURAL FLUID 15 U/L
--- NOTE | 2017-12-28 06:42 | CP.PCM.PN ---
Subjective - Date & Time of Evaluation Date of Evaluation: 12/28/17 Time of Evaluation: 06:40 - Subjective Subjective: General Surgery: Dr Patten Pt S&E. SUSY. Doign well since NGT removal. CT scan yesterday shows no anastamotic leak. Pt is tolerating CLD. Having BMs. Increased congestion w/ cough. Using IS. Has not yet been OOB. Explained to pt importance of getting up and moving around. Pt denies pain. No reason to lay in bed. Objective - Vital Signs/Intake and Output Vital Signs (last 24 hours): Temp Pulse Resp BP Pulse Ox 98.4 F 102 H 20 115/71 95 12/28/17 04:15 12/28/17 04:21 12/28/17 04:15 12/28/17 04:15 12/28/17 04:15 Intake and Output: 12/27/17 12/28/17 18:59 06:59 Intake Total 550 2360 Output Total 310 765 Balance 240 1595 - Medications Medications: Current Medications Albuterol/Ipratropium (Duoneb 3 Mg/0.5 Mg (3 Ml) Ud) 3 ml INH RQ6 [facility] Last Admin: 12/28/17 02:22 Dose: 3 ml Enoxaparin Sodium (Lovenox) 40 mg SC DAILY [facility] Last Admin: 12/27/17 09:31 Dose: 40 mg Famotidine (Pepcid) 20 mg IVP Q12 [facility] Last Admin: 12/27/17 21:57 Dose: 20 mg Ciprofloxacin (Cipro 400mg/200ml Dsw) 400 mg in 200 mls @ 133 mls/hr IVPB Q12H [facility] Last Admin: 12/28/17 01:00 Dose: 133 mls/hr Metronidazole (Flagyl) 500 mg in 100 mls @ 100 mls/hr IVPB Q8H [facility] Last Admin: 12/27/17 22:59 Dose: 100 mls/hr Potassium Chloride/Dextrose/Sod Cl (Potassium Chl 40 Meq In D5-1/2ns) 1,000 mls @ 120 mls/hr IV .Q8H20M [facility] Last Admin: 12/27/17 21:28 Dose: Not Given Morphine Sulfate (Morphine) 2 mg IVP Q6H PRN PRN Reason: Pain, moderate (4-7) Nicotine (Nicoderm Cq) 1 patch TD DAILY [facility] Last Admin: 12/27/17 09:31 Dose: 1 patch Ondansetron HCl (Zofran Inj) 4 mg IVP Q4H PRN PRN Reason: Nausea/Vomiting - Labs Labs: 12/27/17 08:53 12/27/17 08:53 PT 18.2 SECONDS (9.7-12.2) H 12/21/17 04:16 INR 1.6 12/21/17 04:16 APTT 31 SECONDS (21-34) 12/21/17 04:16 - Constitutional Appears: Non-toxic, No Acute Distress - Head Exam Head Exam: NORMAL INSPECTION - Eye Exam Eye Exam: Normal appearance - ENT Exam ENT Exam: Mucous Membranes Moist - Respiratory Exam Respiratory Exam: Decreased Breath Sounds (b/l). absent: Accessory Muscle Use, Respiratory Distress - Cardiovascular Exam Cardiovascular Exam: REGULAR RHYTHM. absent: Tachycardia - GI/Abdominal Exam GI & Abdominal Exam: Soft. absent: Distended, Firm, Guarding, Tenderness Additional comments: chan drains in place with serosanguinous output - Extremities Exam Extremities Exam: absent: Pedal Edema - Neurological Exam Neurological Exam: Alert, Awake, Oriented x3 - Psychiatric Exam Psychiatric exam: Normal Affect, Normal Mood - Skin Skin Exam: Normal Color, Warm Assessment and Plan - Assessment and Plan (Free Text) Assessment: 62F POD#5 s/p ex-lap with jan-gastrectomy Plan: cont CLD CXR PA and Lat f/u urine culture/analysis cont abx OOB AND AMBULATE!!! PHYSICAL THERAPY cont IS use will d/w Dr Sandor Lowe, PGY3
[2017-12-28 07:12] LABS: CHOLESTEROL PLEURAL FLUID 32 mg/dL; GLUCOSE PLEURAL FLUID 89 mg/dL; LDH PLEURAL FLUID 129 U/L; TOTAL PROTEIN PLEURAL FLUID <3.0 g/dL; TRIGLYCERIDES PLEURAL FLUID 48 mg/dL
[2017-12-28] MEDS: metroNIDAZOLE IV 500 mg/100 ml 500 MG/100 ML BAG IVPB SCH ×2 (07:46→18:14)
[2017-12-28 08:15] LABS: CEA PLEURAL FLUID <0.5 ng/mL (<10.0)
[2017-12-28] MEDS: Enoxaparin 40 mg Syringe SC SCH (09:43)
--- NOTE | 2017-12-28 11:18 | RAD ---
HISTORY: eval effusions COMPARISON: Chest radiograph dated 12/27/2017. TECHNIQUE: Chest PA and lateral FINDINGS: LUNGS: Pulmonary vascular congestion/ edema. Right middle lobe atelectasis/ consolidation, unchanged. Bibasilar atelectasis. PLEURA: Moderate bilateral pleural effusions. No appreciable pneumothorax CARDIOVASCULAR: Atherosclerotic aortic calcifications. Cardiomediastinal silhouette within normal limits. OSSEOUS STRUCTURES: Unchanged. VISUALIZED UPPER ABDOMEN: Normal. OTHER FINDINGS: None. IMPRESSION: Pulmonary vascular congestion/ edema with moderate bilateral pleural effusions. Right middle lobe atelectasis/ consolidation, unchanged.
[2017-12-28] MEDS: Potassium Chl 40 mEq in D5-1/2 1,000 ML IV SCH ×2 (12:25→21:30)
[2017-12-28 13:12] LABS: BASO # 0.1 K/uL (0.0-0.2); BASO % 0.2 % (0.0-2.0); EOS % 0.1 % (0.0-4.0); HEMOGLOBIN 10.1 g/dL (11.0-16.0); LYMPH # 1.2 K/uL (1.0-4.3); LYMPH % 4.2 % (20.0-40.0); MEAN CELL VOLUME 86.3 fL (81.0-99.0); MEAN CORPUSCULAR HEMOGLOBIN 28.5 pg (27.0-31.0); MEAN PLATELET VOLUME 8.7 fL (7.2-11.7); MONO # 0.9 K/uL (0.0-0.8); MONO % 3.4 % (0.0-10.0); NEUT # 25.5 K/uL (1.8-7.0); NEUT % 92.1 % (50.0-75.0); PLATELET COUNT 306 K/uL (130-400); RBC 3.54 Mil/uL (3.80-5.20); RED CELL DISTRIBUTION WIDTH 14.3 % (11.5-14.5); WHITE BLOOD COUNT 27.7 K/uL (4.8-10.8)
[2017-12-28] MEDS: Potassium & Sodium Phosphate PO SCH ×2 (13:26→18:13)
[2017-12-28 13:50] LABS: BANDS 1 % (0-2); LYMPHOCYTE 6 % (20-40); MONOCYTE 3 % (0-10); NEUTROPHIL 90 % (50-75); TOTAL CELLS COUNTED 100
[2017-12-28 13:51] LABS: ANISOCYTOSIS SLIGHT; PLATELET ESTIMATE NORMAL (NORMAL)
[2017-12-28 13:52] LABS: MICROCYTOSIS SLIGHT; OVALOCYTES SLIGHT
[2017-12-28 13:58] LABS: BLOOD UREA NITROGEN 12 mg/dL (7-17); CALCIUM 7.2 mg/dl (8.6-10.4); GFR AFRICAN-AMERICAN > 60; GFR NON-AFRICAN AMERICAN > 60
[2017-12-28] MEDS ORDERED: Iodixanol 320 MG/ML 100 ML BOTTLE IV ONE (18:57)
[2017-12-28] MEDS: Fluconazole IV 200mg/100 ml NS 100 ML IVPB SCH (20:42)
[2017-12-28] MEDS ORDERED: Ciprofloxacin 400mg/200ml D5W 400 MG/200 ML BAG IVPB SCH (21:30)
[2017-12-28] MEDS ORDERED: metroNIDAZOLE IV 500 mg/100 ml 250 MG in Premixed IV 1 EA IVPB SCH (22:00)
[2017-12-28] MEDS: Meropenem 1 GM in Sodium Chloride 0.9% 100 ML IVPB SCH (22:03)
[2017-12-29] MEDS ORDERED: metroNIDAZOLE IV 500 mg/100 ml 250 MG in Premixed IV 1 EA IVPB SCH
--- NOTE | 2017-12-29 00:09 | CT ---
EXAM: CT Chest With Intravenous Contrast EXAM DATE/TIME: 12/28/2017 1:52 PM CLINICAL HISTORY: 62 years old, female; Abnormal findings; Abnormal radiologic exam of lung or chest; Additional info: Worsening cxr, concern for pna TECHNIQUE: Axial computed tomography images of the chest with intravenous contrast. All CT scans at this facility use one or more dose reduction techniques, viz.: automated exposure control; ma/kV adjustment per patient size (including targeted exams where dose is matched to indication; i.e. head); or iterative reconstruction technique. Coronal and sagittal reformatted images were created and reviewed. CONTRAST: 100 mL of [id number] administered intravenously. COMPARISON: Prior CT chest 12/24/2017. The patient's prior CT abdomen of 12/27/2017 has been requested for comparison. FINDINGS: LUNGS: Stable-appearing areas of dense consolidation in the lungs bilaterally, greater on the right, most likely representing compressive atelectasis related to the bilateral pleural effusions. Mild emphysematous changes. No evidence of diffuse pulmonary vascular congestion. PLEURAL SPACE: Bilateral pleural effusions, moderate to large on the right and moderate on the left, similar in appearance to the prior CT. No pneumothorax is seen. HEART: No evidence of significant pericardial effusion. MEDIASTINUM: Mild, diffuse esophageal dilatation. THYROID: Bilateral thyroid nodules. The largest of these measures 1.1 cm. Recommend thyroid ultrasound or scintigraphy for further evaluation, given the size of this nodule, on a nonemergent basis, unless otherwise clinically indicated.. BONES/JOINTS: No acute fractures or other acute bony abnormality noted. SOFT TISSUES: Diffuse subcutaneous edema/anasarca. Recent post operative changes involving the anterior abdominal wall--midline skin elsa are noted, and there is small amount of subincisional fluid. VASCULATURE: No evidence of pulmonary embolism involving the large/central pulmonary arteries. The exam is nondiagnostic for small pulmonary emboli, however. No evidence of aortic dissection. LYMPH NODES: No evidence of diffuse pathologic lymphadenopathy. LIVER: Multiple low density liver lesions, too numerous to count, most likely representing cysts. STOMACH AND BOWEL: Wall thickening involving the colon and scattered small bowel loops. This could represent enterocolitis versus reactive wall thickening. Post operative changes. Evidence of partial gastrectomy with gastrojejunostomy. INTRAPERITONEAL SPACE: Moderate abdominal free fluid, which appears complex. Peritoneal enhancement and infiltration of the peritoneal fat. Findings are suspicious for peritonitis. No evidence of free air. OTHER FINDINGS: Bilateral surgical drains are noted in the upper abdomen. IMPRESSION: - Upper abdominal findings suspicious for peritonitis. There is peritoneal enhancement, peritoneal fat infiltration, and complex abdominal free fluid - Wall thickening involving the colon and scattered small bowel loops. This could represent an enterocolitis versus reactive wall thickening. - The patient's most CT abdomen has been requested for comparison. - Bilateral pleural effusions, moderate to large on the right , and moderate on the left, similar in appearance to a 12/24/2017 CT. - Diffuse subcutaneous edema/anasarca. - See above for remaining findings.
[2017-12-29] MEDS: metroNIDAZOLE IV 500 mg/100 ml 250 MG in Premixed IV 1 EA IVPB SCH ×3 (00:18→16:18)
[2017-12-29] MEDS: Ciprofloxacin 400mg/200ml D5W 400 MG/200 ML BAG IVPB SCH ×2 (01:43→13:30)
[2017-12-29] MEDS: Albuterol-Ipratrop 3 mg / 0.5 (3 ml) UD INH SCH ×4 (02:40→20:34)
[2017-12-29] MEDS: Meropenem 1 GM in Sodium Chloride 0.9% 100 ML IVPB SCH ×3 (06:44→21:42)
[2017-12-29 08:17] LABS: SQUAMOUS EPITHIAL 4 /hpf (0-5); URINE BILIRUBIN NEGATIVE (NEGATIVE); URINE BLOOD 1+ (NEGATIVE); URINE CLARITY Clear (Clear); URINE COLOR Amber (YELLOW); URINE GLUCOSE (UA) 1+ mg/dL (Normal); URINE LEUKOCYTE ESTERASE NEG Leu/uL (Negative); URINE PROTEIN 1+ mg/dL (NEGATIVE)
[2017-12-29 08:26] LABS: BASO # 0.1 K/uL (0.0-0.2); BASO % 0.3 % (0.0-2.0); EOS # 0.1 K/uL (0.0-0.7); EOS % 0.3 % (0.0-4.0); HEMOGLOBIN 9.9 g/dL (11.0-16.0); LYMPH # 1.2 K/uL (1.0-4.3); LYMPH % 4.8 % (20.0-40.0); MEAN CELL VOLUME 85.6 fL (81.0-99.0); MEAN CORPUSCULAR HEMOGLOBIN 29.3 pg (27.0-31.0); MEAN CORPUSCULAR HGB CONC 34.2 g/dL (33.0-37.0); MEAN PLATELET VOLUME 8.7 fL (7.2-11.7); MONO # 0.9 K/uL (0.0-0.8); MONO % 3.7 % (0.0-10.0); NEUT # 22.4 K/uL (1.8-7.0); NEUT % 90.9 % (50.0-75.0); PLATELET COUNT 317 K/uL (130-400); RBC 3.37 Mil/uL (3.80-5.20); RED CELL DISTRIBUTION WIDTH 14.3 % (11.5-14.5); WHITE BLOOD COUNT 24.6 K/uL (4.8-10.8)
[2017-12-29 08:50] LABS: BLOOD UREA NITROGEN 9 mg/dL (7-17); CALCIUM 7.1 mg/dl (8.6-10.4); GFR AFRICAN-AMERICAN > 60; GFR NON-AFRICAN AMERICAN > 60
[2017-12-29 09:24] LABS: BANDS 1 % (0-2); LYMPHOCYTE 6 % (20-40); MONOCYTE 3 % (0-10); NEUTROPHIL 89 % (50-75); PLATELET ESTIMATE NORMAL (NORMAL); TOTAL CELLS COUNTED 100
[2017-12-29 09:25] LABS: HYPOCHROMIC SLIGHT
[2017-12-29] MEDS: Enoxaparin 40 mg Syringe SC SCH (10:00)
[2017-12-29] MEDS: Potassium & Sodium Phosphate PO SCH ×2 (10:00→20:28)
[2017-12-29] MEDS: Vitamins A & D Oint UD Foilpak TOP SCH ×2 (11:39→17:29)
--- NOTE | 2017-12-29 13:48 | PCM.SURG1 ---
Surgeon's Initial Post Op Note - Surgeon's Notes Surgeon: Yg Porter MD Office Engineer: None Type of Anesthesia: Local Pre-Operative Diagnosis: SOB Operative Findings: large right pleural effusion Post-Operative Diagnosis: same Operation Performed: US guided RIGHT thoracentesis Specimen/Specimens Removed: 900 cc straw colored fluid Estimated Blood Loss: EBL {In ML}: 0 Date of Surgery/Procedure: 12/29/17 Time of Surgery/Procedure: 13:30
--- NOTE | 2017-12-29 14:38 | CP.PCM.CON ---
History of Present Illness - History of Present Illness History of Present Illness: dictated Past Patient History - Past Medical History & Family History Past Medical History?: Yes - Past Social History Smoking Status: Light Smoker < 10 Cigarettes Daily - CARDIAC Hx Cardiac Disorders: No - PULMONARY Hx Respiratory Disorders: No - NEUROLOGICAL Hx Neurological Disorder: No - HEENT Hx HEENT Problems: No - RENAL Hx Chronic Kidney Disease: No - ENDOCRINE/METABOLIC Hx Endocrine Disorders: No - HEMATOLOGICAL/ONCOLOGICAL Hx Blood Disorders: No - INTEGUMENTARY Hx Dermatological Problems: No - MUSCULOSKELETAL/RHEUMATOLOGICAL Hx Musculoskeletal Disorders: No - GASTROINTESTINAL Hx Gastrointestinal Disorders: Yes Hx Ulcer: Yes (duodenal) - PSYCHIATRIC Hx Psychophysiologic Disorder: No Hx Substance Use: Yes (smoker 1/2ppd x30yrs) - SURGICAL HISTORY Hx Surgeries: Yes Hx Breast Biopsy: Yes - ANESTHESIA Hx Anesthesia: Yes Hx Anesthesia Reactions: No Hx Malignant Hyperthermia: No Meds Allergies/Adverse Reactions: Allergies Allergy/AdvReac Type Severity Reaction Status Date / Time Penicillins Allergy RASH Verified 12/21/17 04:43 - Medications Medications: Current Medications Albuterol/Ipratropium (Duoneb 3 Mg/0.5 Mg (3 Ml) Ud) 3 ml INH RQ6 [facility] Last Admin: 12/29/17 13:33 Dose: Not Given Famotidine (Pepcid) 20 mg IVP Q12 [facility] Last Admin: 12/29/17 11:30 Dose: 20 mg Fluconazole (Diflucan Iv 200 Mg/100 Ml Ns) 100 mls @ 100 mls/hr IVPB Q24H [facility] Last Admin: 12/28/17 20:42 Dose: 100 mls/hr Meropenem 1 gm/ Sodium (Chloride) 100 mls @ 100 mls/hr IVPB Q8 [facility] Last Admin: 12/29/17 14:00 Dose: Not Given Ciprofloxacin (Cipro 400mg/200ml Dsw) 400 mg in 200 mls @ 133 mls/hr IVPB Q12H [facility] Last Admin: 12/29/17 13:30 Dose: 133 mls/hr Metronidazole 250 mg/ (Miscellaneous) 50 mls @ 100 mls/hr IVPB Q8H [facility] Last Admin: 12/29/17 08:15 Dose: 100 mls/hr Methylprednisolone (Solu-Medrol) 125 mg IV ONCE PRN PRN Reason: REACTION TO MERREM(MEROPENNEM) Morphine Sulfate (Morphine) 2 mg IVP Q6H PRN PRN Reason: Pain, moderate (4-7) Nicotine (Nicoderm Cq) 2 patch TD DAILY [facility] Last Admin: 12/29/17 10:00 Dose: 2 patch Ondansetron HCl (Zofran Inj) 4 mg IVP Q4H PRN PRN Reason: Nausea/Vomiting Potassium Phos/Sodium Phos (Neutra-Phos) 1 pkt PO BID [facility] Stop: 12/31/17 12:31 Last Admin: 12/29/17 10:00 Dose: 1 pkt Vitamin A (Vitamin A & D Oint Ud Foilpak) 1 ea TOP BID [facility] Last Admin: 12/29/17 11:39 Dose: 1 ea Results - Vital Signs Recent Vital Signs: Last Vital Signs Temp 98.4 F 12/29/17 07:15 Pulse 98 H 12/29/17 07:30 Resp 18 12/29/17 07:15 BP 118/72 12/29/17 07:15 Pulse Ox 96 12/29/17 07:15 - Labs Result Diagrams: 12/29/17 08:16 12/29/17 08:16 Labs: Laboratory Results - last 24 hr 12/25/17 12/25/17 12/29/17 13:02 13:38 06:15 WBC RBC Hgb Hct MCV MCH MCHC RDW Plt Count MPV Neut % (Auto) Lymph % (Auto) [place] % (Auto) Eos % (Auto) Baso % (Auto) Neut # (Auto) Lymph # (Auto) [place] # (Auto) Eos # (Auto) Baso # (Auto) Neutrophils % (Manual) Band Neutrophils % Lymphocytes % (Manual) Reactive Lymphs % Monocytes % (Manual) Platelet Estimate Hypochromasia (manual) ESR Sodium Potassium Chloride Carbon Dioxide Anion Gap BUN Creatinine Est GFR ( Amer) Est GFR (Non-Af Amer) POC Glucose (mg/dL) 158 H Random Glucose Calcium Phosphorus Magnesium C-React Prot High Sens Urine Color Urine Clarity Urine pH Ur Specific [place] Urine Protein Urine Glucose (UA) Urine Ketones Urine Blood Urine Nitrate Urine Bilirubin Urine Urobilinogen Ur Leukocyte Esterase Urine WBC (Auto) Urine RBC (Auto) Ur Squamous Epith Cells Urine Yeast (Budding) Fluid Albumin 1.3 Pleur Adenosine Deamin 4.7 12/29/17 12/29/1718 07:45 08:16 08:16 WBC 24.6 H RBC 3.37 L Hgb 9.9 L Hct 28.9 L MCV 85.6 MCH 29.3 MCHC 34.2 RDW 14.3 Plt Count 317 MPV 8.7 Neut % (Auto) 90.9 H Lymph % (Auto) 4.8 L [place] % (Auto) 3.7 Eos % (Auto) 0.3 Baso % (Auto) 0.3 Neut # (Auto) 22.4 H Lymph # (Auto) 1.2 [place] # (Auto) 0.9 H Eos # (Auto) 0.1 Baso # (Auto) 0.1 Neutrophils % (Manual) 89 H Band Neutrophils % 1 Lymphocytes % (Manual) 6 L Reactive Lymphs % TEST NOT PERFORMED Monocytes % (Manual) 3 Platelet Estimate Normal Hypochromasia (manual) Slight ESR 45 H Sodium 139 Potassium 3.8 Chloride 105 Carbon Dioxide 28 Anion Gap 10 BUN 9 Creatinine 0.4 L Est GFR ( Amer) > 60 Est GFR (Non-Af Amer) > 60 POC Glucose (mg/dL) Random Glucose 130 H Calcium 7.1 L Phosphorus 2.6 Magnesium 1.5 L C-React Prot High Sens Urine Color Joy Urine Clarity Clear Urine pH 7.0 Ur Specific [place] 1.010 Urine Protein 1+ H Urine Glucose (UA) 1+ Urine Ketones Negative Urine Blood 1+ H Urine Nitrate Negative Urine Bilirubin Negative Urine Urobilinogen 2.0 H Ur Leukocyte Esterase Neg Urine WBC (Auto) 3 Urine RBC (Auto) 9 H Ur Squamous Epith Cells 4 Urine Yeast (Budding) Rare H Fluid Albumin Pleur Adenosine Deamin 12/29/17 08:16 WBC RBC Hgb Hct MCV MCH MCHC RDW Plt Count MPV Neut % (Auto) Lymph % (Auto) [place] % (Auto) Eos % (Auto) Baso % (Auto) Neut # (Auto) Lymph # (Auto) [place] # (Auto) Eos # (Auto) Baso # (Auto) Neutrophils % (Manual) Band Neutrophils % Lymphocytes % (Manual) Reactive Lymphs % Monocytes % (Manual) Platelet Estimate Hypochromasia (manual) ESR Sodium Potassium Chloride Carbon Dioxide Anion Gap BUN Creatinine Est GFR ( Amer) Est GFR (Non-Af Amer) POC Glucose (mg/dL) Random Glucose Calcium Phosphorus Magnesium C-React Prot High Sens > 15.00 H Urine Color Urine Clarity Urine pH Ur Specific [place] Urine Protein Urine Glucose (UA) Urine Ketones Urine Blood Urine Nitrate Urine Bilirubin Urine Urobilinogen Ur Leukocyte Esterase Urine WBC (Auto) Urine RBC (Auto) Ur Squamous Epith Cells Urine Yeast (Budding) Fluid Albumin Pleur Adenosine Deamin
--- NOTE | 2017-12-29 14:43 | US ---
PROCEDURE: ULTRASOUND-GUIDED THORACENTESIS CLINICAL HISTORY: 62-year-old female with symptomatic right pleural effusion is referred to Interventional Radiology for ultrasound-guided thoracentesis. COMPARISON: CT chest dated 12/28/2017 PROCEDURE: 1. Ultrasound-guided right thoracentesis. PRE-PROCEDURE FINDINGS: 1. Large volume pleural effusion. POST-PROCEDURE FINDINGS: 1. No evidence of post-procedural complication. INTERVENTIONAL RADIOLOGIST: Yg Porter M.D. (the attending was present for the entire procedure) ANESTHESIA: None. MEDICATION: Lidocaine 1% for local subcutaneous analgesia. COMPLICATIONS: None. PROCEDURE DESCRIPTION AND FINDINGS: The risks, benefits, alternatives and possible complications of the procedure were fully discussed; all questions were answered and informed consent was obtained. The patient was brought into the interventional suite and a pre-procedure 'time-out' was performed. The patient was placed in the seated position. Preliminary ultrasound images of the right hemithorax demonstrate a large simple appearing pleural effusion. The right hemithorax was prepped and draped in the usual sterile fashion. Maximum sterile barrier precautions were maintained throughout the entire procedure. Following subcutaneous infiltration of lidocaine 1% for local analgesia, under ultrasound guidance, a 5 Japanese centesis catheter was advanced into the right pleural space with real-time visualization of needle entry. The ultrasound images were permanently recorded and submitted to the PACS. The inner stylet was removed with prompt return of straw-colored fluid. The catheter was attached to gentle vacuum suction. A total of 900 mL of straw-colored fluid was aspirated. The drainage catheter was then removed. A sterile adhesive bandage was placed over the puncture site. The patient tolerated the procedure well without immediate post-procedure complications and was transferred back to the floor in stable condition. IMPRESSION: SUCCESSFUL ULTRASOUND-GUIDED RIGHT THERAPEUTIC THORACENTESIS.
--- NOTE | 2017-12-29 15:14 | CP.PCM.PN ---
Subjective - Date & Time of Evaluation Date of Evaluation: 12/29/17 Time of Evaluation: 15:11 - Subjective Subjective: General Surgery: Dr Patten Pt S&E. SUSY. CT yesterday shows large effusion. Pt went today for right thoracentesis, took 1L off. Breathing improved. Otherwise tolerating CLD, having BMs. PT not ambulating much. Objective - Vital Signs/Intake and Output Vital Signs (last 24 hours): Temp Pulse Resp BP Pulse Ox 98.4 F 98 H 18 118/72 96 12/29/17 07:15 12/29/17 07:30 12/29/17 07:15 12/29/17 07:15 12/29/17 07:15 Intake and Output: 12/29/17 12/29/17 06:59 18:59 Intake Total 2330 Output Total 930 Balance 1400 - Medications Medications: Current Medications Albuterol/Ipratropium (Duoneb 3 Mg/0.5 Mg (3 Ml) Ud) 3 ml INH RQ6 [facility] Last Admin: 12/29/17 13:33 Dose: Not Given Famotidine (Pepcid) 20 mg IVP Q12 [facility] Last Admin: 12/29/17 11:30 Dose: 20 mg Fluconazole (Diflucan Iv 200 Mg/100 Ml Ns) 100 mls @ 100 mls/hr IVPB Q24H [facility] Last Admin: 12/28/17 20:42 Dose: 100 mls/hr Meropenem 1 gm/ Sodium (Chloride) 100 mls @ 100 mls/hr IVPB Q8 [facility] Last Admin: 12/29/17 14:00 Dose: Not Given Ciprofloxacin (Cipro 400mg/200ml Dsw) 400 mg in 200 mls @ 133 mls/hr IVPB Q12H [facility] Last Admin: 12/29/17 13:30 Dose: 133 mls/hr Metronidazole 250 mg/ (Miscellaneous) 50 mls @ 100 mls/hr IVPB Q8H [facility] Last Admin: 12/29/17 08:15 Dose: 100 mls/hr Methylprednisolone (Solu-Medrol) 125 mg IV ONCE PRN PRN Reason: REACTION TO MERREM(MEROPENNEM) Morphine Sulfate (Morphine) 2 mg IVP Q6H PRN PRN Reason: Pain, moderate (4-7) Nicotine (Nicoderm Cq) 2 patch TD DAILY [facility] Last Admin: 12/29/17 10:00 Dose: 2 patch Ondansetron HCl (Zofran Inj) 4 mg IVP Q4H PRN PRN Reason: Nausea/Vomiting Potassium Phos/Sodium Phos (Neutra-Phos) 1 pkt PO BID [facility] Stop: 12/31/17 12:31 Last Admin: 12/29/17 10:00 Dose: 1 pkt Vitamin A (Vitamin A & D Oint Ud Foilpak) 1 ea TOP BID [facility] Last Admin: 12/29/17 11:39 Dose: 1 ea - Labs Labs: 12/29/17 08:16 12/29/17 08:16 PT 18.2 SECONDS (9.7-12.2) H 12/21/17 04:16 INR 1.6 12/21/17 04:16 APTT 31 SECONDS (21-34) 12/21/17 04:16 - Constitutional Appears: Non-toxic, No Acute Distress - ENT Exam ENT Exam: Normal Exam - Respiratory Exam Respiratory Exam: Decreased Breath Sounds. absent: Accessory Muscle Use, Respiratory Distress - Cardiovascular Exam Cardiovascular Exam: REGULAR RHYTHM. absent: Tachycardia - GI/Abdominal Exam GI & Abdominal Exam: Soft. absent: Distended, Firm, Guarding, Tenderness Additional comments: incisions c/d/i - Neurological Exam Neurological Exam: Alert, Awake, Oriented x3 - Psychiatric Exam Psychiatric exam: Normal Affect, Normal Mood - Skin Skin Exam: Normal Color, Warm Assessment and Plan - Assessment and Plan (Free Text) Assessment: 62F s/p ex-lap with jan-gastrectomy Plan: f/u ID recs will cont current abx regiment cont CLD for now encourage OOB and ambulation d/w Dr Sandor Lowe, PGY3
[2017-12-29] MEDS: Fluconazole IV 200mg/100 ml NS 100 ML IVPB SCH (17:29)
[2017-12-30] MEDS: metroNIDAZOLE IV 500 mg/100 ml 250 MG in Premixed IV 1 EA IVPB SCH ×3 (00:03→18:13)
[2017-12-30] MEDS: Ciprofloxacin 400mg/200ml D5W 400 MG/200 ML BAG IVPB SCH ×2 (01:06→13:40)
[2017-12-30] MEDS: Albuterol-Ipratrop 3 mg / 0.5 (3 ml) UD INH SCH ×4 (01:52→21:17)
--- NOTE | 2017-12-30 07:42 | CON ---
DATE: CONSULT REQUESTED BY: Dr. Rob. HISTORY OF PRESENT ILLNESS: This patient is a 62-year-old female. She presented on 12/20/2017 to the hospital. She is awake, alert, and is able to give me history and her mother flew in from [place]. She is also at the bedside, she tells me that she came in one day to the emergency room with abdominal pain, nausea, and vomiting, and she thought it was flu and they sent her home, but she continued to have abdominal pain, nausea, and vomiting and was feeling worse, hence had came again. At that time, she was admitted and was found to have severe abdominal pain which was not being evaluated and she had subjective fevers, no chills. She denied any urinary problems. She has not had any bright red blood or any weight loss or weight gain, but she is a thin, cachectic female. She tells me that when she came, they did a surgery which I see that Dr. Rob on 12/21/2017 did a Khanh patch, exploratory laparotomy with Khanh patch was performed on 12/21/2017, and she was in ICU for a day and consult was obtained by Dr. Hughes and then there was an emergency, and she had to go again for surgery. Again, she had exploratory lap with peritoneal lavage, and they had to do distal hemigastrectomy with Billroth II gastrojejunostomy. They removed short gastric vessels and distal stomach with pylorus. She underwent another surgery which was pretty extensive, and she was in critical care until 12/25/2017 and on 12/25/2017, she also had a therapeutic paracentesis done. Today, she underwent a large ultrasound-guided right thoracocentesis with 900 mL of straw-colored fluid removed. She is frail, but she wants to eat. She is also complaining that today she had diarrhea and she feels a little better with the breathing. She is tolerating clear liquid diet. She did have BM, and she is on clear liquid diet at this time and her white count has been slightly improved. She does have allergy to penicillin, and she says that she developed rash to it, and she does not remember if she had a throat problem, but she does not agree to take meropenem at this time and since her white count is coming down, i will hold it off. PAST MEDICAL HISTORY: Significant for duodenal ulcers. SURGICAL HISTORY: Significant for bilateral breast biopsies. ALLERGIES: SHE IS ALLERGIC TO PENICILLIN. SOCIAL HISTORY: Significant for tobacco use, 5 packs per day for 30 years. No occasional EtOH. Denies any recreational drugs. She lives alone. REVIEW OF SYSTEMS: She is feeling little better. Denies any headache. Denies ear, nose, or throat problems at this time. She said she is breathing easier. She has no abdominal pain at this time, and she has 2 drains which are draining and denies any urinary symptoms, did complain of some diarrhea. PHYSICAL EXAMINATION VITAL SIGNS: I find her temperature is 98.3, pulse is 105, blood pressure 108/72, respirations are 20. HEENT: Head is atraumatic, normocephalic. She is thin built. Pupils are reacting to light. Eye movements are unremarkable. She has mild pallor. Tongue is dry. NECK: Supple. JVP is flat. LUNGS: There are decreased breath sounds on her right lung. Left lung has some crackles present. HEART: S1, S2 is tachycardic. ABDOMEN: Soft, with 2 IVY drains. Both have serous fluid in it, extensive amount of serous fluid bilaterally. Surgical scar has healed in the epigastric area. EXTREMITIES: There is no edema, clubbing, or cyanosis in the lower extremities. LABS: White count is 24.6, hemoglobin 9.9, hematocrit 28.9, platelet count is 317, neutrophils are 89 and bands are 1, ESR is 45, BUN is 9, creatinine is 0.4, CRP is more than 15. UA was done yesterday which shows 1+ protein, 1+ glucose. RBC and WBC is 3. She had blood cultures done yesterday, which are negative. We did fluid culture from the drains, which is negative. Urine culture is negative. She also had chest CT done on 12/28/2017 which shows upper abdominal findings suspicious for peritonitis. This is from peritoneal enhancement, peritoneal irritation, and complex abdominal free fluid wall thickening and obviously in the colon, scattered small loop. This could represent enteric colitis versus reactive wall thickening. The patient's most recent CT of the abdomen has been requested, bilateral pleural effusion and it showed moderate to large on the right and moderate on the left, diffuse subcutaneous edema and anasarca, which was reported on the CAT scan. She had right pleural tap today and she is also complaining of diarrhea. We will get stool for C. diff. Her CAT scan of abdomen shows, I will have to go through it, but extensive emphysematous changes, moderate bilateral pleural effusion. Two abdominal drainage catheters, heterogenous appearance of the noncontrasted liver with numerous low density lesions consistent with other cysts, are too small to characterize. I am not sure what size they are and that she has a prominent pancreatic head relative to the body and tail and the spleen and kidney and adrenal gallbladders that runs are grossly unremarkable. CBD is dilated at 9 mm, stomach is not distended. Gastric wall remains mildly prominent and irregular, thick blanton, small bowel loops, lack of oral contrast limits the bowel pathology, uterus is present. [place]o within the decompressed bladder, ET tube, NG tube. This was done on 12/27/2017. At this time, we just talked about free fluid, so at this time, she is on Cipro and Flagyl. She is on clear liquid diet. We will get a stool for C. diff and we will try to see if she tolerates more food, then we can switch Flagyl to p.o. 3 times a day, and she is also on fluconazole and Cipro at this time. We will repeat the labs tomorrow to get stool for C. diff, and we will follow. was done yesterday which is basically negative, but she does have 2 drains at this time which are draining serous fluid and she is status post Billroth II and two times she had laparotomy recently for perforated duodenal ulcer. We will follow. Kobe Cruz MD
[2017-12-30 07:53] LABS: BASO % 0.1 % (0.0-2.0); EOS # 0.1 K/uL (0.0-0.7); EOS % 0.4 % (0.0-4.0); HEMOGLOBIN 9.2 g/dL (11.0-16.0); MEAN CELL VOLUME 86.2 fL (81.0-99.0); MEAN CORPUSCULAR HEMOGLOBIN 28.6 pg (27.0-31.0); MEAN CORPUSCULAR HGB CONC 33.2 g/dL (33.0-37.0); MEAN PLATELET VOLUME 8.9 fL (7.2-11.7); MONO # 1.2 K/uL (0.0-0.8); MONO % 6.1 % (0.0-10.0); NEUT % 88.4 % (50.0-75.0); PLATELET COUNT 369 K/uL (130-400); RBC 3.21 Mil/uL (3.80-5.20); RED CELL DISTRIBUTION WIDTH 14.6 % (11.5-14.5); WHITE BLOOD COUNT 20.3 K/uL (4.8-10.8)
[2017-12-30 09:04] LABS: LYMPHOCYTE 4 % (20-40); MONOCYTE 4 % (0-10); NEUTROPHIL 92 % (50-75); TOTAL CELLS COUNTED 100
[2017-12-30 09:05] LABS: HYPOCHROMIC SLIGHT; PLATELET ESTIMATE NORMAL (NORMAL)
[2017-12-30 09:06] LABS: POLYCHROMIC SLIGHT
[2017-12-30] MEDS: Meropenem 1 GM in Sodium Chloride 0.9% 100 ML IVPB SCH (09:10)
[2017-12-30] MEDS: Vitamins A & D Oint UD Foilpak TOP SCH ×3 (11:13→18:23)
[2017-12-30] MEDS: Potassium & Sodium Phosphate PO SCH ×2 (11:13→21:19)
--- NOTE | 2017-12-30 11:16 | CP.PCM.PN ---
Subjective - Date & Time of Evaluation Date of Evaluation: 12/30/17 Time of Evaluation: 11:03 - Subjective Subjective: General Surgery: Dr Patten Pt S&E. Pt had a thoracentesis yesterday, reports breathing is much better. Tolerating CLD. Having BMs. Denies N/V, F/C, SOB or chest pain. OOB to chair yesterday. Objective - Vital Signs/Intake and Output Vital Signs (last 24 hours): Temp Pulse Resp BP Pulse Ox 98.5 F 88 18 113/69 94 L 12/30/17 07:40 12/30/17 07:40 12/30/17 07:40 12/30/17 07:40 12/30/17 07:40 Intake and Output: 12/30/17 12/30/17 06:59 18:59 Intake Total 850 Output Total 365 Balance 485 - Medications Medications: Current Medications Albuterol/Ipratropium (Duoneb 3 Mg/0.5 Mg (3 Ml) Ud) 3 ml INH RQ6 [facility] Last Admin: 12/30/17 07:41 Dose: 3 ml Famotidine (Pepcid) 20 mg IVP Q12 [facility] Last Admin: 12/29/17 21:42 Dose: 20 mg Fluconazole (Diflucan Iv 200 Mg/100 Ml Ns) 100 mls @ 100 mls/hr IVPB Q24H [facility] Last Admin: 12/29/17 17:29 Dose: 100 mls/hr Meropenem 1 gm/ Sodium (Chloride) 100 mls @ 100 mls/hr IVPB Q8 [facility] Last Admin: 12/30/17 09:10 Dose: Not Given Ciprofloxacin (Cipro 400mg/200ml Dsw) 400 mg in 200 mls @ 133 mls/hr IVPB Q12H [facility] Last Admin: 12/30/17 01:06 Dose: 133 mls/hr Metronidazole 250 mg/ (Miscellaneous) 50 mls @ 100 mls/hr IVPB Q8H [facility] Last Admin: 12/30/17 09:08 Dose: 100 mls/hr Methylprednisolone (Solu-Medrol) 125 mg IV ONCE PRN PRN Reason: REACTION TO MERREM(MEROPENNEM) Nicotine (Nicoderm Cq) 2 patch TD DAILY [facility] Last Admin: 12/29/17 10:00 Dose: 2 patch Ondansetron HCl (Zofran Inj) 4 mg IVP Q4H PRN PRN Reason: Nausea/Vomiting Potassium Phos/Sodium Phos (Neutra-Phos) 1 pkt PO BID [facility] Stop: 12/31/17 12:31 Last Admin: 12/29/17 20:28 Dose: Not Given Vitamin A (Vitamin A & D Oint Ud Foilpak) 1 ea TOP BID [facility] Last Admin: 12/29/17 17:29 Dose: 1 ea - Labs Labs: 12/30/17 07:38 12/29/17 08:16 PT 18.2 SECONDS (9.7-12.2) H 12/21/17 04:16 INR 1.6 12/21/17 04:16 APTT 31 SECONDS (21-34) 12/21/17 04:16 - Constitutional Appears: Non-toxic, No Acute Distress - Head Exam Head Exam: NORMOCEPHALIC - ENT Exam ENT Exam: Mucous Membranes Moist - Respiratory Exam Respiratory Exam: absent: Accessory Muscle Use, Respiratory Distress - Cardiovascular Exam Cardiovascular Exam: REGULAR RHYTHM. absent: Tachycardia - GI/Abdominal Exam GI & Abdominal Exam: Soft. absent: Distended, Firm, Guarding, Tenderness Additional comments: incisions c/d/i drains with R/L 255/155 respectively - Neurological Exam Neurological Exam: Alert, Awake, Oriented x3 - Psychiatric Exam Psychiatric exam: Normal Affect, Normal Mood - Skin Skin Exam: Normal Color, Warm Assessment and Plan - Assessment and Plan (Free Text) Assessment: 62F s/p ex-lap with jan-gastrectomy Plan: will adv to soft diet cont abx - ID help appreciated OOB and ambulate will begin d/c planning - pt will likely need ANTONIO d/w Dr Sandor Lowe, PGY3
[2017-12-30] MEDS ORDERED: Micafungin 100 MG in Sodium Chloride 0.9% 100 ML IV SCH (14:00)
[2017-12-30] MEDS: Micafungin 100 MG in Sodium Chloride 0.9% 100 ML IV SCH (18:14)
--- NOTE | 2017-12-30 21:52 | CP.PCM.PN ---
Subjective - Date & Time of Evaluation Date of Evaluation: 12/30/17 Time of Evaluation: 02:00 - Subjective Subjective: dictated Objective - Vital Signs/Intake and Output Vital Signs (last 24 hours): Temp Pulse Resp BP Pulse Ox 98.3 F 110 H 20 100/58 L 96 12/30/17 15:08 12/30/17 15:08 12/30/17 15:08 12/30/17 15:08 12/30/17 15:08 Intake and Output: 12/30/17 12/31/17 18:59 06:59 Intake Total 300 Output Total 125 Balance 175 - Medications Medications: Current Medications Famotidine (Pepcid) 20 mg IVP Q12 [facility] Last Admin: 12/30/17 21:19 Dose: 20 mg Ciprofloxacin (Cipro 400mg/200ml Dsw) 400 mg in 200 mls @ 133 mls/hr IVPB Q12H [facility] Last Admin: 12/30/17 13:40 Dose: 133 mls/hr Metronidazole 250 mg/ (Miscellaneous) 50 mls @ 100 mls/hr IVPB Q8H [facility] Last Admin: 12/30/17 18:13 Dose: 100 mls/hr Micafungin Sodium 100 mg/ (Sodium Chloride) 100 mls @ 100 mls/hr IV Q24H [facility] PRN Reason: Protocol Last Admin: 12/30/17 18:14 Dose: 100 mls/hr Nicotine (Nicoderm Cq) 2 patch TD DAILY [facility] Last Admin: 12/30/17 11:13 Dose: 2 patch Ondansetron HCl (Zofran Inj) 4 mg IVP Q4H PRN PRN Reason: Nausea/Vomiting Potassium Phos/Sodium Phos (Neutra-Phos) 1 pkt PO BID [facility] Stop: 12/31/17 12:31 Last Admin: 12/30/17 21:19 Dose: 1 pkt Vitamin A (Vitamin A & D Oint Ud Foilpak) 1 ea TOP BID [facility] Last Admin: 12/30/17 18:23 Dose: Not Given - Labs Labs: 12/30/17 07:38 12/29/17 08:16 PT 18.2 SECONDS (9.7-12.2) H 12/21/17 04:16 INR 1.6 12/21/17 04:16 APTT 31 SECONDS (21-34) 12/21/17 04:16
[2017-12-31] MEDS: metroNIDAZOLE IV 500 mg/100 ml 250 MG in Premixed IV 1 EA IVPB SCH ×3 (00:30→16:45)
--- NOTE | 2017-12-31 01:04 | PN ---
DATE: SUBJECTIVE: The patient was looking little better today. She was breathing easier, has no fever. She denied any pain. PHYSICAL EXAMINATION: VITAL SIGNS: T-max is 98.3, heart rate of 110, blood pressure 100/58, respirations are 20. HEENT: Head is atraumatic, normocephalic. NECK: Supple. LUNGS: Clear. Decreased breath sounds on right base. HEART: S1, S2 is tachycardic. ABDOMEN: Soft, nontender. No guarding. No rigidity present. The drains were still draining and surgical wound has healed. The elsa had some minimal redness to it. No drainage. EXTREMITIES: There is no edema, clubbing, or cyanosis. LABORATORY DATA: Labs were noted. White count is 20.3 today it has decreased from 24.6. Hemoglobin is 9.2, hematocrit 27.7, platelet count is 369. MEDICATIONS: She is on Cipro, Pepcid, metronidazole, Diflucan, Nicoderm, Zofran, Neutra-Phos, and vitamin A, but she is not on heparin subcutaneously, that may be important. White count is 20.3, hemoglobin 9.2, hematocrit 27.7, platelet count is 360. Micro johnston, the body fluids grew yeast and sputum also grew yeast. Blood cultures have been negative. Urine culture is negative. IMPRESSION AND PLAN: We will change Diflucan to Mycamine. Continue Cipro and Flagyl for now. Would add heparin subcutaneously every 12 hours right now for deep venous thrombosis prophylaxis and we will follow. Hopefully, she will go to rehab as written by the assistant professor surgical technology once the white count comes down further. We will follow. Kobe Cruz MD
[2017-12-31] MEDS: Ciprofloxacin 400mg/200ml D5W 400 MG/200 ML BAG IVPB SCH ×2 (01:57→14:55)
[2017-12-31 07:49] LABS: HEMOGLOBIN 9.1 g/dL (11.0-16.0); MEAN CELL VOLUME 85.5 fL (81.0-99.0); MEAN CORPUSCULAR HEMOGLOBIN 29.4 pg (27.0-31.0); MEAN CORPUSCULAR HGB CONC 34.4 g/dL (33.0-37.0); MEAN PLATELET VOLUME 8.6 fL (7.2-11.7); RBC 3.11 Mil/uL (3.80-5.20); RED CELL DISTRIBUTION WIDTH 14.6 % (11.5-14.5); WHITE BLOOD COUNT 15.4 K/uL (4.8-10.8)
[2017-12-31 07:54] LABS: BLOOD UREA NITROGEN 11 mg/dL (7-17); CALCIUM 6.9 mg/dl (8.6-10.4); GFR AFRICAN-AMERICAN > 60; GFR NON-AFRICAN AMERICAN > 60
[2017-12-31] MEDS: Vitamins A & D Oint UD Foilpak TOP SCH ×2 (09:45→17:45)
[2017-12-31] MEDS: Potassium & Sodium Phosphate PO SCH (09:46)
[2017-12-31] MEDS ORDERED: Albumin Human 25% (12.5 gm/50 ml) IV ONE (13:07)
--- NOTE | 2017-12-31 13:10 | CP.PCM.PN ---
Subjective - Date & Time of Evaluation Date of Evaluation: 12/31/17 Time of Evaluation: 13:07 - Subjective Subjective: General Surgery: Dr Patten Pt S&E. Pt was OOB with PT and walked yesterday. Tolerating soft diet, having BMs. Denies N/V, F/C, or chest pain. Complains of SOB. Objective - Vital Signs/Intake and Output Vital Signs (last 24 hours): Temp Pulse Resp BP Pulse Ox 98.3 F 89 20 121/74 99 12/31/17 07:00 12/31/17 07:09 12/31/17 07:00 12/31/17 07:00 12/31/17 07:00 Intake and Output: 12/31/17 12/31/17 06:59 18:59 Intake Total 550 370 Output Total 240 120 Balance 310 250 - Medications Medications: Current Medications Albumin Human (Albumin Human 25% (12.5 Gm/50 Ml)) 12.5 gm IV ONCE ONE Stop: 12/31/17 13:08 Famotidine (Pepcid) 20 mg IVP Q12 [facility] Last Admin: 12/31/17 09:45 Dose: 20 mg Heparin Sodium (Porcine) (Heparin) 5,000 units SC Q8 [facility] Last Admin: 12/31/17 05:51 Dose: 5,000 units Ciprofloxacin (Cipro 400mg/200ml Dsw) 400 mg in 200 mls @ 133 mls/hr IVPB Q12H [facility] Last Admin: 12/31/17 01:57 Dose: 133 mls/hr Metronidazole 250 mg/ (Miscellaneous) 50 mls @ 100 mls/hr IVPB Q8H [facility] Last Admin: 12/31/17 09:36 Dose: 100 mls/hr Micafungin Sodium 100 mg/ (Sodium Chloride) 100 mls @ 100 mls/hr IV Q24H [facility] PRN Reason: Protocol Last Admin: 12/30/17 18:14 Dose: 100 mls/hr Nicotine (Nicoderm Cq) 1 patch TD DAILY [facility] Last Admin: 12/31/17 09:46 Dose: Not Given Ondansetron HCl (Zofran Inj) 4 mg IVP Q4H PRN PRN Reason: Nausea/Vomiting Vitamin A (Vitamin A & D Oint Ud Foilpak) 1 ea TOP BID [facility] Last Admin: 12/31/17 09:45 Dose: 1 ea - Labs Labs: 12/31/17 07:36 12/31/17 07:36 PT 18.2 SECONDS (9.7-12.2) H 12/21/17 04:16 INR 1.6 12/21/17 04:16 APTT 31 SECONDS (21-34) 12/21/17 04:16 - Constitutional Appears: Non-toxic, No Acute Distress - Respiratory Exam Respiratory Exam: Decreased Breath Sounds, Wheezes - Cardiovascular Exam Cardiovascular Exam: REGULAR RHYTHM. absent: Tachycardia - GI/Abdominal Exam GI & Abdominal Exam: Soft. absent: Distended, Firm, Tenderness Additional comments: incisions c/d/i - Neurological Exam Neurological Exam: Alert, Awake - Psychiatric Exam Psychiatric exam: Normal Affect, Normal Mood - Skin Skin Exam: Dry, Warm Assessment and Plan - Assessment and Plan (Free Text) Assessment: 62F s/p jan-gastrectomy - doing well but developing continuous pleural effusions b/l Plan: cont abx per ID pulm consult - Dr Ramsey 25% albumin 12.5mg - effusions likely due to hypoalbuminemia cont to encourage ambulation d/w Dr Sandor Lowe, PGY3
--- NOTE | 2017-12-31 13:36 | RAD ---
HISTORY: eval b/l effusions COMPARISON: Chest x-ray performed 12/28/17 TECHNIQUE: Chest, one view. FINDINGS: LUNGS: Pulmonary venous congestion/ edema appears stable to minimally improved. Biapical pleural thickening. Persistent right middle lobe consolidation. Bilateral pleural effusions. No definite pneumothorax. Please note that chest x-ray has limited sensitivity for the detection of pulmonary masses. CARDIOVASCULAR: Heart size appears within normal limits. Atherosclerotic calcifications of the aorta. OSSEOUS STRUCTURES: Degenerative changes. VISUALIZED UPPER ABDOMEN: Unremarkable. OTHER FINDINGS: None. IMPRESSION: Pulmonary venous congestion/ edema appears stable to minimally improved. Biapical pleural thickening. Persistent right middle lobe consolidation. Bilateral pleural effusions.
--- NOTE | 2017-12-31 16:00 | CP.PCM.CON ---
History of Present Illness - History of Present Illness History of Present Illness: Reason for consultation: bilateral pleural effusion Patient is 62-year-old femalewho was admitted on 12/20 with abdominal pain, nausea and vomiting and was found to have perforated ant wall gastric ulcer, status post Grahams patch, patient was taken back to or again for partial gastrectomy and Billroth type II gastrojejunostomy and peritoneal lavage. patient was initially admitted to intensive car and later transferred to floor. patient had thoracentesis for bilateral pleural effusion with reaccumulation pleural fluid consistent with transudate. patient lying comfortably in no acute distress. Patient is awake and responsive Review of Systems - Review of Systems All systems: reviewed and no additional remarkable complaints except Past Patient History - Past Medical History & Family History Past Medical History?: Yes - Past Social History Smoking Status: Light Smoker < 10 Cigarettes Daily - CARDIAC Hx Cardiac Disorders: No - PULMONARY Hx Respiratory Disorders: No - NEUROLOGICAL Hx Neurological Disorder: No - HEENT Hx HEENT Problems: No - RENAL Hx Chronic Kidney Disease: No - ENDOCRINE/METABOLIC Hx Endocrine Disorders: No - HEMATOLOGICAL/ONCOLOGICAL Hx Blood Disorders: No - INTEGUMENTARY Hx Dermatological Problems: No - MUSCULOSKELETAL/RHEUMATOLOGICAL Hx Musculoskeletal Disorders: No - GASTROINTESTINAL Hx Gastrointestinal Disorders: Yes Hx Ulcer: Yes (duodenal) - PSYCHIATRIC Hx Psychophysiologic Disorder: No Hx Substance Use: Yes (smoker 1/2ppd x30yrs) - SURGICAL HISTORY Hx Surgeries: Yes Hx Breast Biopsy: Yes - ANESTHESIA Hx Anesthesia: Yes Hx Anesthesia Reactions: No Hx Malignant Hyperthermia: No Meds Allergies/Adverse Reactions: Allergies Allergy/AdvReac Type Severity Reaction Status Date / Time Penicillins Allergy RASH Verified 12/21/17 04:43 - Medications Medications: Current Medications Famotidine (Pepcid) 20 mg IVP Q12 [facility] Last Admin: 12/31/17 09:45 Dose: 20 mg Heparin Sodium (Porcine) (Heparin) 5,000 units SC Q8 [facility] Last Admin: 12/31/17 14:54 Dose: 5,000 units Ciprofloxacin (Cipro 400mg/200ml Dsw) 400 mg in 200 mls @ 133 mls/hr IVPB Q12H [facility] Last Admin: 12/31/17 14:55 Dose: 133 mls/hr Metronidazole 250 mg/ (Miscellaneous) 50 mls @ 100 mls/hr IVPB Q8H [facility] Last Admin: 12/31/17 09:36 Dose: 100 mls/hr Micafungin Sodium 100 mg/ (Sodium Chloride) 100 mls @ 100 mls/hr IV Q24H [facility] PRN Reason: Protocol Last Admin: 12/30/17 18:14 Dose: 100 mls/hr Nicotine (Nicoderm Cq) 1 patch TD DAILY [facility] Last Admin: 12/31/17 09:46 Dose: Not Given Ondansetron HCl (Zofran Inj) 4 mg IVP Q4H PRN PRN Reason: Nausea/Vomiting Vitamin A (Vitamin A & D Oint Ud Foilpak) 1 ea TOP BID [facility] Last Admin: 12/31/17 09:45 Dose: 1 ea Physical Exam - Head Exam Head Exam: ATRAUMATIC, NORMOCEPHALIC - ENT Exam ENT Exam: Mucous Membranes Moist - Respiratory Exam Respiratory Exam: Decreased Breath Sounds - Cardiovascular Exam Cardiovascular Exam: REGULAR RHYTHM - GI/Abdominal Exam GI & Abdominal Exam: Normal Bowel Sounds Results - Vital Signs Recent Vital Signs: Last Vital Signs Temp 98.3 F 12/31/17 07:00 Pulse 89 12/31/17 07:09 Resp 20 12/31/17 07:00 BP 121/74 12/31/17 07:00 Pulse Ox 99 12/31/17 07:00 - Labs Result Diagrams: 12/31/17 07:36 12/31/17 07:36 Labs: Laboratory Results - last 24 hr 12/31/17 12/31/17 07:36 07:36 WBC 15.4 H RBC 3.11 L Hgb 9.1 L Hct 26.6 L MCV 85.5 MCH 29.4 MCHC 34.4 RDW 14.6 H Plt Count 492 H D MPV 8.6 Sodium 137 Potassium 3.6 Chloride 104 Carbon Dioxide 26 Anion Gap 10 BUN 11 Creatinine 0.4 L Est GFR ( Amer) > 60 Est GFR (Non-Af Amer) > 60 Random Glucose 111 H Calcium 6.9 L Assessment & Plan (1) Pleural effusion Status: Acute Comment: bilateral pleural effusion most likely secondary to hypoalbuminemia. IV albumin. Improve nutritional status. Thoracentesis. We will follow-up. On antibiotics with improving white count
[2017-12-31] MEDS: Micafungin 100 MG in Sodium Chloride 0.9% 100 ML IV SCH (17:44)
[2018-01-01] MEDS: metroNIDAZOLE IV 500 mg/100 ml 250 MG in Premixed IV 1 EA IVPB SCH ×3 (00:57→16:45)
[2018-01-01] MEDS: Ciprofloxacin 400mg/200ml D5W 400 MG/200 ML BAG IVPB SCH ×2 (01:50→13:53)
[2018-01-01] MEDS ORDERED: Albuterol-Ipratrop 3 mg / 0.5 (3 ml) UD INH STA (02:31)
[2018-01-01 06:58] LABS: HEMOGLOBIN 8.8 g/dL (11.0-16.0); MEAN CELL VOLUME 85.3 fL (81.0-99.0); MEAN CORPUSCULAR HEMOGLOBIN 29.4 pg (27.0-31.0); MEAN CORPUSCULAR HGB CONC 34.5 g/dL (33.0-37.0); MEAN PLATELET VOLUME 8.1 fL (7.2-11.7); RBC 2.99 Mil/uL (3.80-5.20); RED CELL DISTRIBUTION WIDTH 14.3 % (11.5-14.5); WHITE BLOOD COUNT 12.6 K/uL (4.8-10.8)
[2018-01-01 07:13] LABS: ALB/GLOB RATIO 0.7 (1.0-2.1); ALT/SGPT 27 U/L (9-52); AST/SGOT 23 U/L (14-36); BLOOD UREA NITROGEN 10 mg/dL (7-17); CALCIUM 7.3 mg/dl (8.6-10.4); GFR AFRICAN-AMERICAN > 60; GFR NON-AFRICAN AMERICAN > 60
[2018-01-01] MEDS ORDERED: Albumin Human 25% (12.5 gm/50 ml) IV ONE (08:21)
--- NOTE | 2018-01-01 08:27 | CP.PCM.PN ---
Subjective - Date & Time of Evaluation Date of Evaluation: 01/01/18 Time of Evaluation: 07:15 - Subjective Subjective: General Surgery: Dr Patten Pt S&E. SUSY. Resting comfortably. Tolerating regular diet. Having BMs. Increased activity with PT. Pt seen by pulmonology yesterday. b/l effusions likely secondary to hypoalbuminemia Objective - Vital Signs/Intake and Output Vital Signs (last 24 hours): Temp Pulse Resp BP Pulse Ox 98.0 F 99 H 20 121/74 95 12/31/17 23:45 01/01/18 04:07 12/31/17 23:45 12/31/17 23:45 12/31/17 23:45 Intake and Output: 01/01/18 01/01/18 06:59 18:59 Intake Total 820 Output Total 623 Balance 197 - Medications Medications: Current Medications Albumin Human (Albumin Human 25% (12.5 Gm/50 Ml)) 12.5 gm IV ONCE ONE Stop: 01/01/18 08:22 Famotidine (Pepcid) 20 mg IVP Q12 [facility] Last Admin: 12/31/17 21:03 Dose: 20 mg Heparin Sodium (Porcine) (Heparin) 5,000 units SC Q8 [facility] Last Admin: 01/01/18 05:55 Dose: 5,000 units Ciprofloxacin (Cipro 400mg/200ml Dsw) 400 mg in 200 mls @ 133 mls/hr IVPB Q12H [facility] Last Admin: 01/01/18 01:50 Dose: 133 mls/hr Metronidazole 250 mg/ (Miscellaneous) 50 mls @ 100 mls/hr IVPB Q8H [facility] Last Admin: 01/01/18 00:57 Dose: 100 mls/hr Micafungin Sodium 100 mg/ (Sodium Chloride) 100 mls @ 100 mls/hr IV Q24H [facility] PRN Reason: Protocol Last Admin: 12/31/17 17:44 Dose: 100 mls/hr Nicotine (Nicoderm Cq) 1 patch TD DAILY [facility] Last Admin: 12/31/17 09:46 Dose: Not Given Ondansetron HCl (Zofran Inj) 4 mg IVP Q4H PRN PRN Reason: Nausea/Vomiting Vitamin A (Vitamin A & D Oint Ud Foilpak) 1 ea TOP BID [facility] Last Admin: 12/31/17 17:45 Dose: 1 ea - Labs Labs: 01/01/18 06:47 01/01/18 06:47 PT 18.2 SECONDS (9.7-12.2) H 12/21/17 04:16 INR 1.6 12/21/17 04:16 APTT 31 SECONDS (21-34) 12/21/17 04:16 - Constitutional Appears: Non-toxic, No Acute Distress - ENT Exam ENT Exam: Mucous Membranes Moist - Respiratory Exam Respiratory Exam: absent: Accessory Muscle Use, Respiratory Distress - Cardiovascular Exam Cardiovascular Exam: REGULAR RHYTHM - GI/Abdominal Exam GI & Abdominal Exam: Soft. absent: Distended, Tenderness - Neurological Exam Neurological Exam: Alert, Awake, Oriented x3 - Psychiatric Exam Psychiatric exam: Normal Affect, Normal Mood - Skin Skin Exam: Normal Color, Warm Assessment and Plan - Assessment and Plan (Free Text) Assessment: 62F s/p hemigastrectomy Plan: will cont IV albumin start protein supplements may possible need repeat thora - will defer to pulm abx per ID will d/w Dr Sandor Lowe, PGY3
[2018-01-01] MEDS: Potassium Chloride 20 mEq ER Tab PO SCH (11:13)
[2018-01-01] MEDS: Vitamins A & D Oint UD Foilpak TOP SCH ×2 (11:13→18:01)
--- NOTE | 2018-01-01 16:05 | CP.PCM.PN ---
Subjective - Date & Time of Evaluation Date of Evaluation: 01/01/18 Time of Evaluation: 03:45 - Subjective Subjective: dictated Objective - Vital Signs/Intake and Output Vital Signs (last 24 hours): Temp Pulse Resp BP Pulse Ox 98.3 F 96 H 20 112/71 99 01/01/18 09:00 01/01/18 09:00 01/01/18 09:00 01/01/18 09:00 01/01/18 09:00 Intake and Output: 01/01/18 01/01/18 06:59 18:59 Intake Total 820 Output Total 623 Balance 197 - Medications Medications: Current Medications Docusate Sodium (Colace) 100 mg PO BID [facility] Last Admin: 01/01/18 13:52 Dose: 100 mg Famotidine (Pepcid) 20 mg PO BID [facility] Heparin Sodium (Porcine) (Heparin) 5,000 units SC Q8 [facility] Last Admin: 01/01/18 13:57 Dose: 5,000 units Ciprofloxacin (Cipro 400mg/200ml Dsw) 400 mg in 200 mls @ 133 mls/hr IVPB Q12H [facility] Last Admin: 01/01/18 13:53 Dose: 133 mls/hr Metronidazole 250 mg/ (Miscellaneous) 50 mls @ 100 mls/hr IVPB Q8H [facility] Last Admin: 01/01/18 08:50 Dose: 100 mls/hr Micafungin Sodium 100 mg/ (Sodium Chloride) 100 mls @ 100 mls/hr IV Q24H [facility] PRN Reason: Protocol Last Admin: 12/31/17 17:44 Dose: 100 mls/hr Nicotine (Nicoderm Cq) 1 patch TD DAILY [facility] Last Admin: 01/01/18 11:12 Dose: 1 patch Ondansetron HCl (Zofran Inj) 4 mg IVP Q4H PRN PRN Reason: Nausea/Vomiting Potassium Chloride (K-Dur 20 Meq Er Tab) 20 meq PO DAILY [facility] Last Admin: 01/01/18 11:13 Dose: 20 meq Vitamin A (Vitamin A & D Oint Ud Foilpak) 1 ea TOP BID [facility] Last Admin: 01/01/18 11:13 Dose: 1 ea - Labs Labs: 01/01/18 06:47 01/01/18 06:47 PT 18.2 SECONDS (9.7-12.2) H 12/21/17 04:16 INR 1.6 12/21/17 04:16 APTT 31 SECONDS (21-34) 12/21/17 04:16
[2018-01-01] MEDS: Micafungin 100 MG in Sodium Chloride 0.9% 100 ML IV SCH (16:15)
[2018-01-02] MEDS: metroNIDAZOLE IV 500 mg/100 ml 250 MG in Premixed IV 1 EA IVPB SCH ×3 (00:23→17:00)
[2018-01-02] MEDS: Ciprofloxacin 400mg/200ml D5W 400 MG/200 ML BAG IVPB SCH ×2 (00:58→14:55)
[2018-01-02] MEDS ORDERED: Albumin Human 25% (12.5 gm/50 ml) IV ONE (05:55)
[2018-01-02 07:26] LABS: HEMOGLOBIN 9.8 g/dL (11.0-16.0); MEAN CELL VOLUME 85.5 fL (81.0-99.0); MEAN CORPUSCULAR HEMOGLOBIN 28.8 pg (27.0-31.0); MEAN CORPUSCULAR HGB CONC 33.7 g/dL (33.0-37.0); MEAN PLATELET VOLUME 8.5 fL (7.2-11.7); RBC 3.39 Mil/uL (3.80-5.20); RED CELL DISTRIBUTION WIDTH 14.7 % (11.5-14.5); WHITE BLOOD COUNT 11.3 K/uL (4.8-10.8)
[2018-01-02 07:41] LABS: ALB/GLOB RATIO 0.8 (1.0-2.1); ALBUMIN 2.2 g/dL (3.5-5.0); ALT/SGPT 27 U/L (9-52); AST/SGOT 23 U/L (14-36); BLOOD UREA NITROGEN 8 mg/dL (7-17); CALCIUM 7.5 mg/dl (8.6-10.4); GFR AFRICAN-AMERICAN > 60; GFR NON-AFRICAN AMERICAN > 60
--- NOTE | 2018-01-02 08:28 | PN ---
DATE: 01/01/2018 SUBJECTIVE: The patient was seen today. She was trying to do some incentive spirometry, appears congested and she cannot do without oxygen. PHYSICAL EXAMINATION VITAL SIGNS: T-max is 97.9, pulse of 89, blood pressure 122/73, respirations are 20. HEENT: Head is atraumatic and normocephalic. LUNGS: Bilaterally some crackles. HEART: S1, S2 is regular. ABDOMEN: Soft and nontender. No guarding. No rigidity present. She tried to take some . EXTREMITIES: No edema. She does have two drains still present and are draining serous fluid. LABORATORY DATA: Labs are noted. Labs showed white count is 12.6. It has been decreasing on antibiotics. White count is 8.8, hematocrit is 25.5, platelet count, however, has increased to 544. Sodium is 137, potassium 3.4, chloride is 103, CO2 is 25, BUN is 12, creatinine 0.4, and the patient has been on antibiotic since admission, which is on 12/21/2017 and it is almost 11 days, but the drains are still draining a lot and she was seen by Pulmonary, who thinks the effusions are relate to her low albumin. Her white count is decreasing. We will continue antibiotics for now and we will follow and if she gets a place to go, I think she is on Mycamine day 3 of 7 and she is also is on Cipro and Flagyl for next three days. If she starts to eat well, these can be probably reconstituted to oral. We will follow. Kobe Cruz MD
--- NOTE | 2018-01-02 10:04 | RAD ---
HISTORY: COMPARISON: 12/31/2017. TECHNIQUE: Chest PA and lateral FINDINGS: LINES AND TUBES: None. LUNG AND PLEURA: There is worsening right pleural effusion there is a small left pleural effusion. There is and worsening pulmonary venous congestion and mild interstitial pulmonary. Again seen is right middle lobe consolidation. HEART AND MEDIASTINUM: The heart is not enlarged. The hilar and mediastinal contours are within normal limits. SKELETAL STRUCTURES: The bony structures are within normal limits for the patient's age. VISUALIZED UPPER ABDOMEN: Normal. OTHER FINDINGS: None. IMPRESSION: Worsening right pleural effusion disease cannot be excluded. Persistent right middle lobe consolidation. Worsening pulmonary venous congestion and mild interstitial pulmonary edema. Stable small left pleural effusion pain.
[2018-01-02] MEDS: Potassium Chloride 20 mEq ER Tab PO SCH (10:40)
[2018-01-02] MEDS: Vitamins A & D Oint UD Foilpak TOP SCH ×2 (10:40→17:10)
--- NOTE | 2018-01-02 10:43 | CP.PCM.PN ---
Subjective - Date & Time of Evaluation Date of Evaluation: 01/02/18 Time of Evaluation: 06:30 - Subjective Subjective: Surgery progress note. Dr. Patten Pt seen and examined at bedside. No acute events overnight. This morning, she reports feeling a bit confused and dazed. Denies any N/V/D. Tolerating diet. Denies any pain. Was able to sit up in chair yesterday. Objective - Vital Signs/Intake and Output Vital Signs (last 24 hours): Temp Pulse Resp BP Pulse Ox 98.0 F 83 18 136/67 98 01/02/18 08:44 01/02/18 08:44 01/02/18 08:44 01/02/18 08:44 01/02/18 08:44 Intake and Output: 01/02/18 01/02/18 06:59 18:59 Intake Total 850 Output Total 360 Balance 490 - Medications Medications: Current Medications Docusate Sodium (Colace) 100 mg PO BID [facility] Last Admin: 01/01/18 18:01 Dose: 100 mg Famotidine (Pepcid) 20 mg PO BID [facility] Last Admin: 01/01/18 18:01 Dose: 20 mg Heparin Sodium (Porcine) (Heparin) 5,000 units SC Q8 [facility] Last Admin: 01/02/18 05:26 Dose: 5,000 units Ciprofloxacin (Cipro 400mg/200ml Dsw) 400 mg in 200 mls @ 133 mls/hr IVPB Q12H [facility] Last Admin: 01/02/18 00:58 Dose: 133 mls/hr Metronidazole 250 mg/ (Miscellaneous) 50 mls @ 100 mls/hr IVPB Q8H [facility] Last Admin: 01/02/18 00:23 Dose: 100 mls/hr Micafungin Sodium 100 mg/ (Sodium Chloride) 100 mls @ 100 mls/hr IV Q24H [facility] PRN Reason: Protocol Last Admin: 01/01/18 16:15 Dose: 100 mls/hr Nicotine (Nicoderm Cq) 1 patch TD DAILY [facility] Last Admin: 01/01/18 11:12 Dose: 1 patch Ondansetron HCl (Zofran Inj) 4 mg IVP Q4H PRN PRN Reason: Nausea/Vomiting Potassium Chloride (K-Dur 20 Meq Er Tab) 20 meq PO DAILY [facility] Last Admin: 01/01/18 11:13 Dose: 20 meq Vitamin A (Vitamin A & D Oint Ud Foilpak) 1 ea TOP BID [facility] Last Admin: 01/01/18 18:01 Dose: 1 ea - Labs Labs: 01/02/18 07:17 01/02/18 07:17 PT 18.2 SECONDS (9.7-12.2) H 12/21/17 04:16 INR 1.6 12/21/17 04:16 APTT 31 SECONDS (21-34) 12/21/17 04:16 - Constitutional Appears: Non-toxic, No Acute Distress - Head Exam Head Exam: ATRAUMATIC, NORMAL INSPECTION, NORMOCEPHALIC - Eye Exam Eye Exam: EOMI, Normal appearance - ENT Exam ENT Exam: Mucous Membranes Moist - Respiratory Exam Respiratory Exam: NORMAL BREATHING PATTERN. absent: Accessory Muscle Use, Respiratory Distress Additional comments: decreased breath sounds bilaterally - Cardiovascular Exam Cardiovascular Exam: absent: JVD - GI/Abdominal Exam GI & Abdominal Exam: Soft. absent: Distended, Firm, Guarding, Rigid, Tenderness , Rebound Additional comments: Midline incision intact with elsa. non tender, non distended. Da drains in place serrous output: Left 200cc/24hrs, Right 160cc/24hrs output. - Extremities Exam Extremities Exam: Normal Inspection. absent: Calf Tenderness - Neurological Exam Neurological Exam: Alert, Awake, Oriented x3 - Skin Skin Exam: Dry, Intact, Normal Color, Warm Assessment and Plan - Assessment and Plan (Free Text) Assessment: 62F s/p hemigastrectomy. POD 10 Plan: - Continue IV albumin and protein supplements - Request Fitting Room Associate consult - Right middle lobe Consolidation vs Pleural effusions. Appreciate pulm and ID recs - abx per ID Further recs as per Dr. Sandor Teixeira PGY1 surgery pager: [phone]
--- NOTE | 2018-01-02 15:45 | CP.PCM.PN ---
Subjective - Date & Time of Evaluation Date of Evaluation: 01/02/18 Time of Evaluation: 13:30 - Subjective Subjective: Patient seen and examined at bedside today Afebrile Denies fever/chills, chest pain, shortness of breath, cough, wheezing Reports some feelings of anxiety at times On supplemental oxygen Using incentive spirometer Working with PT when walking ? Assessment/Plan: 1. Pleural effusion -Most recent chest XR on 01/02: Worsening right pleural effusion disease cannot be excluded. Persistent right middle lobe consolidation. Worsening pulmonary venous congestion and mild interstitial pulmonary edema. Stable small left pleural effusion. -Status post ultrasound guided right thoracentesis on 12/29, removed 900 cc straw colored fluid -Pleural fluid consistent with transudate -Most likely secondary to hypoalbuminemia - 2.0 --> 2.2 on today's AM labs 01/02 -Prealbumin 7.2 on today's AM labs 01/02 -Improve nutritional status -Consider thoracentesis -Out of bed to chair Objective - Vital Signs/Intake and Output Vital Signs (last 24 hours): Temp Pulse Resp BP Pulse Ox 98.3 F 101 H 20 135/75 98 01/02/18 15:30 01/02/18 15:30 01/02/18 15:30 01/02/18 15:30 01/02/18 15:30 Intake and Output: 01/02/18 01/02/18 06:59 18:59 Intake Total 850 Output Total 360 Balance 490 - Medications Medications: Current Medications Docusate Sodium (Colace) 100 mg PO BID [facility] Last Admin: 01/02/18 10:40 Dose: 100 mg Famotidine (Pepcid) 20 mg PO BID [facility] Last Admin: 01/02/18 10:40 Dose: 20 mg Heparin Sodium (Porcine) (Heparin) 5,000 units SC Q8 [facility] Last Admin: 01/02/18 14:57 Dose: 5,000 units Ciprofloxacin (Cipro 400mg/200ml Dsw) 400 mg in 200 mls @ 133 mls/hr IVPB Q12H [facility] Last Admin: 01/02/18 14:55 Dose: 133 mls/hr Metronidazole 250 mg/ (Miscellaneous) 50 mls @ 100 mls/hr IVPB Q8H [facility] Last Admin: 01/02/18 09:15 Dose: 100 mls/hr Micafungin Sodium 100 mg/ (Sodium Chloride) 100 mls @ 100 mls/hr IV Q24H [facility] PRN Reason: Protocol Last Admin: 01/01/18 16:15 Dose: 100 mls/hr Nicotine (Nicoderm Cq) 1 patch TD DAILY [facility] Last Admin: 01/02/18 10:40 Dose: 1 patch Ondansetron HCl (Zofran Inj) 4 mg IVP Q4H PRN PRN Reason: Nausea/Vomiting Potassium Chloride (K-Dur 20 Meq Er Tab) 20 meq PO DAILY [facility] Last Admin: 01/02/18 10:40 Dose: 20 meq Vitamin A (Vitamin A & D Oint Ud Foilpak) 1 ea TOP BID [facility] Last Admin: 01/02/18 10:40 Dose: 1 ea - Labs Labs: 01/02/18 07:17 01/02/18 07:17 PT 18.2 SECONDS (9.7-12.2) H 12/21/17 04:16 INR 1.6 12/21/17 04:16 APTT 31 SECONDS (21-34) 12/21/17 04:16 Assessment and Plan (1) Pleural effusion Status: Acute
[2018-01-02] MEDS: Micafungin 100 MG in Sodium Chloride 0.9% 100 ML IV SCH (16:15)
[2018-01-02 19:24] LABS: SQUAMOUS EPITHIAL 2 /hpf (0-5); URINE BILIRUBIN NEGATIVE (NEGATIVE); URINE BLOOD 1+ (NEGATIVE); URINE CLARITY Clear (Clear); URINE COLOR Yellow (YELLOW); URINE GLUCOSE (UA) NORMAL (Normal); URINE LEUKOCYTE ESTERASE NEG Leu/uL (Negative); URINE PROTEIN NEGATIVE (NEGATIVE); URINE UROBILINOGEN NORMAL mg/dL (0.2-1.0)
[2018-01-03] MEDS: metroNIDAZOLE IV 500 mg/100 ml 250 MG in Premixed IV 1 EA IVPB SCH (00:15)
[2018-01-03] MEDS: Ciprofloxacin 400mg/200ml D5W 400 MG/200 ML BAG IVPB SCH ×2 (00:30→13:19)
--- NOTE | 2018-01-03 05:36 | CP.PCM.PN ---
Subjective - Date & Time of Evaluation Date of Evaluation: 01/03/18 Time of Evaluation: 06:30 - Subjective Subjective: General surgery progress note for Dr. Naveed Esquivel, PGY-1 Pt S & E at bedside. Pt denies ab pain, N & V, F & C. No complaints. Encouraged pt to get OOBTC and work with PT. Objective - Vital Signs/Intake and Output Vital Signs (last 24 hours): Temp Pulse Resp BP Pulse Ox 97.9 F 92 H 20 129/54 L 97 01/02/18 23:40 01/03/18 00:00 01/02/18 23:40 01/02/18 23:40 01/02/18 23:40 Intake and Output: 01/02/18 01/03/18 18:59 06:59 Intake Total 500 630 Output Total 410 420 Balance 90 210 - Medications Medications: Current Medications Docusate Sodium (Colace) 100 mg PO BID [facility] Last Admin: 01/02/18 17:10 Dose: 100 mg Famotidine (Pepcid) 20 mg PO BID [facility] Last Admin: 01/02/18 17:10 Dose: 20 mg Ciprofloxacin (Cipro 400mg/200ml Dsw) 400 mg in 200 mls @ 133 mls/hr IVPB Q12H [facility] Last Admin: 01/03/18 00:30 Dose: 133 mls/hr Micafungin Sodium 100 mg/ (Sodium Chloride) 100 mls @ 100 mls/hr IV Q24H [facility] PRN Reason: Protocol Last Admin: 01/02/18 16:15 Dose: 100 mls/hr Nicotine (Nicoderm Cq) 1 patch TD DAILY [facility] Last Admin: 01/02/18 10:40 Dose: 1 patch Ondansetron HCl (Zofran Inj) 4 mg IVP Q4H PRN PRN Reason: Nausea/Vomiting Potassium Chloride (K-Dur 20 Meq Er Tab) 20 meq PO DAILY [facility] Last Admin: 01/02/18 10:40 Dose: 20 meq Vitamin A (Vitamin A & D Oint Ud Foilpak) 1 ea TOP BID [facility] Last Admin: 01/02/18 17:10 Dose: 1 ea - Labs Labs: 01/02/18 07:17 01/02/18 07:17 PT 18.2 SECONDS (9.7-12.2) H 12/21/17 04:16 INR 1.6 12/21/17 04:16 APTT 31 SECONDS (21-34) 12/21/17 04:16 - Constitutional Appears: Non-toxic, No Acute Distress - Head Exam Head Exam: ATRAUMATIC, NORMAL INSPECTION, NORMOCEPHALIC - Eye Exam Eye Exam: EOMI, Normal appearance - ENT Exam ENT Exam: Mucous Membranes Moist, Normal Exam - Neck Exam Neck Exam: Full ROM, Normal Inspection - Respiratory Exam Respiratory Exam: NORMAL BREATHING PATTERN - Cardiovascular Exam Cardiovascular Exam: REGULAR RHYTHM, +S1, +S2 - GI/Abdominal Exam GI & Abdominal Exam: Soft. absent: Distended, Firm, Guarding, Tenderness Additional comments: Right drain with scant serous output Left drain with scan serous output Dressings in place aroun drain insertion sites- clean/dry/intact [place] in place in midline incision- slight erythema at insertion points, no fluctuance or drainage - Extremities Exam Extremities Exam: Normal Inspection - Neurological Exam Neurological Exam: Alert, Awake, CN II-XII Intact, Oriented x3 - Psychiatric Exam Psychiatric exam: Normal Affect, Normal Mood - Skin Skin Exam: Dry, Intact, Normal Color, Warm Assessment and Plan - Assessment and Plan (Free Text) Assessment: 62F POD#11 s/p jan-gastrectomy Plan: Cont IV Albumin Cont protein supplements Leukocytosis improving Cont to monitor drain output Encourage OOBTC Encourage IS use Encourage ambulation with assistance Cont IV Abx as per ID Pulm recs- consider thoracentesis, OOBTC, improve nutritional status ID following Will DW attending [place], PGY-1
[2018-01-03 06:13] LABS: HEMOGLOBIN 9.4 g/dL (11.0-16.0); MEAN CELL VOLUME 85.6 fL (81.0-99.0); MEAN CORPUSCULAR HEMOGLOBIN 29.1 pg (27.0-31.0); MEAN PLATELET VOLUME 8.1 fL (7.2-11.7); RBC 3.21 Mil/uL (3.80-5.20); RED CELL DISTRIBUTION WIDTH 14.5 % (11.5-14.5)
[2018-01-03 06:38] LABS: ALB/GLOB RATIO 0.8 (1.0-2.1); ALBUMIN 2.2 g/dL (3.5-5.0); ALT/SGPT 30 U/L (9-52); AST/SGOT 49 U/L (14-36); BLOOD UREA NITROGEN 7 mg/dL (7-17); CALCIUM 7.6 mg/dl (8.6-10.4); GFR AFRICAN-AMERICAN > 60; GFR NON-AFRICAN AMERICAN > 60
[2018-01-03] MEDS ORDERED: Albumin Human 25% (12.5 gm/50 ml) IV ONE (07:38)
[2018-01-03] MEDS: Potassium Chloride 20 mEq ER Tab PO SCH (09:12)
[2018-01-03] MEDS: Vitamins A & D Oint UD Foilpak TOP SCH ×2 (09:12→17:26)
[2018-01-03] MEDS: metroNIDAZOLE IV 500 mg/100 ml 500 MG/100 ML BAG IVPB SCH ×2 (13:20→21:09)
[2018-01-03] MEDS: Micafungin 100 MG in Sodium Chloride 0.9% 100 ML IV SCH (16:33)
--- NOTE | 2018-01-03 20:45 | CP.PCM.PN ---
Subjective - Date & Time of Evaluation Date of Evaluation: 01/03/18 Time of Evaluation: 19:00 - Subjective Subjective: patient seen and examined Lying comfortably and breathing much better Using incentive spirometry Awake and responsive Afebrile No chest pain Objective - Vital Signs/Intake and Output Vital Signs (last 24 hours): Temp Pulse Resp BP Pulse Ox 98.3 F 93 H 18 131/74 98 01/03/18 15:25 01/03/18 16:00 01/03/18 15:25 01/03/18 15:25 01/03/18 15:25 Intake and Output: 01/03/18 01/04/18 18:59 07:59 Intake Total 890 Output Total 100 Balance 790 - Medications Medications: Current Medications Docusate Sodium (Colace) 100 mg PO BID [facility] Last Admin: 01/03/18 17:24 Dose: 100 mg Famotidine (Pepcid) 20 mg PO BID [facility] Last Admin: 01/03/18 17:24 Dose: 20 mg Micafungin Sodium 100 mg/ (Sodium Chloride) 100 mls @ 100 mls/hr IV Q24H [facility] PRN Reason: Protocol Last Admin: 01/03/18 16:33 Dose: 100 mls/hr Ciprofloxacin (Cipro 400mg/200ml Dsw) 400 mg in 200 mls @ 133 mls/hr IVPB Q12H [facility] PRN Reason: Protocol Last Admin: 01/03/18 13:19 Dose: 133 mls/hr Metronidazole (Flagyl) 500 mg in 100 mls @ 100 mls/hr IVPB Q8 [facility] PRN Reason: Protocol Last Admin: 01/03/18 13:20 Dose: 100 mls/hr Nicotine (Nicoderm Cq) 1 patch TD DAILY [facility] Last Admin: 01/03/18 09:12 Dose: 1 patch Ondansetron HCl (Zofran Inj) 4 mg IVP Q4H PRN PRN Reason: Nausea/Vomiting Potassium Chloride (K-Dur 20 Meq Er Tab) 20 meq PO DAILY [facility] Last Admin: 01/03/18 09:12 Dose: 20 meq Vitamin A (Vitamin A & D Oint Ud Foilpak) 1 ea TOP BID [facility] Last Admin: 01/03/18 17:26 Dose: 1 ea - Labs Labs: 01/03/18 06:04 01/03/18 06:04 PT 18.2 SECONDS (9.7-12.2) H 12/21/17 04:16 INR 1.6 12/21/17 04:16 APTT 31 SECONDS (21-34) 12/21/17 04:16 - Head Exam Head Exam: ATRAUMATIC, NORMOCEPHALIC - ENT Exam ENT Exam: Mucous Membranes Moist - Respiratory Exam Respiratory Exam: Clear to Ausculation Bilateral - Cardiovascular Exam Cardiovascular Exam: REGULAR RHYTHM Assessment and Plan (1) Pleural effusion Assessment & Plan: Continue IV albumin Improve nutritional status Followup chest x-ray on Friday Status: Acute
[2018-01-04] MEDS: Ciprofloxacin 400mg/200ml D5W 400 MG/200 ML BAG IVPB SCH ×2 (00:49→12:00)
[2018-01-04] MEDS: metroNIDAZOLE IV 500 mg/100 ml 500 MG/100 ML BAG IVPB SCH ×3 (05:13→21:16)
[2018-01-04 07:40] LABS: HEMOGLOBIN 9.3 g/dL (11.0-16.0); MEAN CELL VOLUME 85.4 fL (81.0-99.0); MEAN CORPUSCULAR HEMOGLOBIN 29.5 pg (27.0-31.0); MEAN CORPUSCULAR HGB CONC 34.6 g/dL (33.0-37.0); MEAN PLATELET VOLUME 7.5 fL (7.2-11.7); RBC 3.16 Mil/uL (3.80-5.20); RED CELL DISTRIBUTION WIDTH 14.3 % (11.5-14.5); WHITE BLOOD COUNT 8.9 K/uL (4.8-10.8)
[2018-01-04 08:18] LABS: ALB/GLOB RATIO 0.8 (1.0-2.1); ALBUMIN 2.4 g/dL (3.5-5.0); ALT/SGPT 30 U/L (9-52); AST/SGOT 36 U/L (14-36); BLOOD UREA NITROGEN 7 mg/dL (7-17); GFR AFRICAN-AMERICAN > 60; GFR NON-AFRICAN AMERICAN > 60
--- NOTE | 2018-01-04 08:33 | CP.PCM.PN ---
Subjective - Date & Time of Evaluation Date of Evaluation: 01/04/18 Time of Evaluation: 07:10 - Subjective Subjective: Surgery Progress note. Dr. Patten Pt seen and examined at bedside. No acute events overnight. No N/V/D. No Abd pain. Reports breathing status is improving. No new complaints. Objective - Vital Signs/Intake and Output Vital Signs (last 24 hours): Temp Pulse Resp BP Pulse Ox 98.1 F 91 H 20 137/82 97 01/04/18 04:28 01/04/18 04:28 01/04/18 04:28 01/04/18 04:28 01/04/18 04:28 Intake and Output: 01/04/18 01/04/18 06:59 18:59 Output Total Balance - Medications Medications: Current Medications Docusate Sodium (Colace) 100 mg PO BID [facility] Last Admin: 01/03/18 17:24 Dose: 100 mg Famotidine (Pepcid) 20 mg PO BID [facility] Last Admin: 01/03/18 17:24 Dose: 20 mg Micafungin Sodium 100 mg/ (Sodium Chloride) 100 mls @ 100 mls/hr IV Q24H [facility] PRN Reason: Protocol Last Admin: 01/03/18 16:33 Dose: 100 mls/hr Ciprofloxacin (Cipro 400mg/200ml Dsw) 400 mg in 200 mls @ 133 mls/hr IVPB Q12H [facility] PRN Reason: Protocol Last Admin: 01/04/18 00:49 Dose: 133 mls/hr Metronidazole (Flagyl) 500 mg in 100 mls @ 100 mls/hr IVPB Q8 [facility] PRN Reason: Protocol Last Admin: 01/04/18 05:13 Dose: 100 mls/hr Nicotine (Nicoderm Cq) 1 patch TD DAILY [facility] Last Admin: 01/03/18 09:12 Dose: 1 patch Ondansetron HCl (Zofran Inj) 4 mg IVP Q4H PRN PRN Reason: Nausea/Vomiting Potassium Chloride (K-Dur 20 Meq Er Tab) 20 meq PO DAILY [facility] Last Admin: 01/03/18 09:12 Dose: 20 meq Vitamin A (Vitamin A & D Oint Ud Foilpak) 1 ea TOP BID [facility] Last Admin: 01/03/18 17:26 Dose: 1 ea - Labs Labs: 01/04/18 07:25 01/04/18 07:25 PT 18.2 SECONDS (9.7-12.2) H 12/21/17 04:16 INR 1.6 12/21/17 04:16 APTT 31 SECONDS (21-34) 12/21/17 04:16 - Constitutional Appears: Non-toxic - Head Exam Head Exam: ATRAUMATIC, NORMAL INSPECTION, NORMOCEPHALIC - Eye Exam Eye Exam: EOMI, Normal appearance - ENT Exam ENT Exam: Mucous Membranes Moist - Respiratory Exam Respiratory Exam: Decreased Breath Sounds (mildly decrease breath sounds right base), NORMAL BREATHING PATTERN. absent: Accessory Muscle Use, Respiratory Distress - Cardiovascular Exam Cardiovascular Exam: RRR. absent: JVD - GI/Abdominal Exam GI & Abdominal Exam: Soft. absent: Distended, Guarding, Rigid, Tenderness Additional comments: midline incision intact with elsa. Skin edges well approximated. Da in place x2. R Da 40cc/24 hours serrous. L Da 120cc/24hours serrous. No tenderness, no rebound. No guarding - Extremities Exam Extremities Exam: Normal Inspection. absent: Calf Tenderness - Neurological Exam Neurological Exam: Alert, Awake, Oriented x3 - Psychiatric Exam Psychiatric exam: Normal Affect, Normal Mood - Skin Skin Exam: Dry, Intact, Normal Color, Warm Assessment and Plan - Assessment and Plan (Free Text) Assessment: 62yo F POD#12 s/p jan-gastrectomy Plan: - Encourage oral intake. Protein supplements - Cont to monitor drain outputs - Encourage OOBTC, IS use and ambulation with assistance - IV Abx as per ID - f/u Pulm recs - f/u CXR tomorrow AM Further recs as per Dr. Sandor Teixeira PGY1 surgery pager: [phone]
[2018-01-04] MEDS: Potassium Chloride 20 mEq ER Tab PO SCH (09:22)
[2018-01-04] MEDS: Vitamins A & D Oint UD Foilpak TOP SCH ×2 (10:00→17:24)
[2018-01-04] MEDS: Micafungin 100 MG in Sodium Chloride 0.9% 100 ML IV SCH (16:51)
[2018-01-05] MEDS: Ciprofloxacin 400mg/200ml D5W 400 MG/200 ML BAG IVPB SCH ×2 (00:39→13:00)
[2018-01-05] MEDS: metroNIDAZOLE IV 500 mg/100 ml 500 MG/100 ML BAG IVPB SCH (05:11)
[2018-01-05 06:59] LABS: ALB/GLOB RATIO 0.9 (1.0-2.1); ALBUMIN 2.2 g/dL (3.5-5.0); ALT/SGPT 28 U/L (9-52); AST/SGOT 23 U/L (14-36); BLOOD UREA NITROGEN 9 mg/dL (7-17); CALCIUM 7.6 mg/dl (8.6-10.4); GFR AFRICAN-AMERICAN > 60; GFR NON-AFRICAN AMERICAN > 60
[2018-01-05 07:18] LABS: BASO # 0.1 K/uL (0.0-0.2); BASO % 0.7 % (0.0-2.0); EOS % 0.3 % (0.0-4.0); HEMOGLOBIN 9.6 g/dL (11.0-16.0); LYMPH # 0.9 K/uL (1.0-4.3); LYMPH % 8.6 % (20.0-40.0); MEAN CELL VOLUME 85.7 fL (81.0-99.0); MEAN CORPUSCULAR HGB CONC 33.9 g/dL (33.0-37.0); MEAN PLATELET VOLUME 7.6 fL (7.2-11.7); MONO # 0.9 K/uL (0.0-0.8); NEUT # 8.2 K/uL (1.8-7.0); NEUT % 81.4 % (50.0-75.0); PLATELET COUNT 565 K/uL (130-400); RBC 3.32 Mil/uL (3.80-5.20); RED CELL DISTRIBUTION WIDTH 14.9 % (11.5-14.5)
--- NOTE | 2018-01-05 08:42 | RAD ---
Chest x-ray single frontal view History: Interval changes. Comparison: 01/02/2018 Findings: Moderate loculated layering right pleural effusion. Small left pleural effusion. Moderate venous congestion. Airspace opacities in the right mid to lower lung zone as well as the left lung base. Biapical pleural with upper lobe granulomatous changes. Calcification aortic knob. Degenerative changes in the spine. Impression: Moderate loculated layering right pleural effusion. Small left pleural effusion. Moderate venous congestion. Airspace opacities in the right mid to lower lung zone as well as the left lung base. Biapical pleural with upper lobe granulomatous changes. Calcification aortic knob. Degenerative changes in the spine.
[2018-01-05 09:11] LABS: LYMPHOCYTE 4 % (20-40); MONOCYTE 3 % (0-10); NEUTROPHIL 93 % (50-75); TOTAL CELLS COUNTED 100
[2018-01-05 09:12] LABS: HYPOCHROMIC SLIGHT; PLATELET ESTIMATE INCREASED (NORMAL); POLYCHROMIC SLIGHT
[2018-01-05] MEDS: Potassium Chloride 20 mEq ER Tab PO SCH (09:39)
[2018-01-05] MEDS: Vitamins A & D Oint UD Foilpak TOP SCH ×2 (09:40→17:49)
--- NOTE | 2018-01-05 13:56 | CP.PCM.PN ---
Subjective - Date & Time of Evaluation Date of Evaluation: 01/05/18 Time of Evaluation: 13:54 - Subjective Subjective: General Surgery: Dr Patten Pt S&E. SUSY. Tolerating diet. Reports hasnt had BM in 2-3 days. Working with PT and using IS. Breathing is improved. Objective - Vital Signs/Intake and Output Vital Signs (last 24 hours): Temp Pulse Resp BP Pulse Ox 97.5 F L 98 H 18 101/66 93 L 01/05/18 07:00 01/05/18 12:03 01/05/18 07:00 01/05/18 07:00 01/05/18 12:03 Intake and Output: 01/05/18 01/05/18 06:59 18:59 Intake Total 860 Output Total 65 Balance 795 - Medications Medications: Current Medications Docusate Sodium (Colace) 100 mg PO BID [facility] Last Admin: 01/05/18 09:40 Dose: 100 mg Famotidine (Pepcid) 20 mg PO BID [facility] Last Admin: 01/05/18 09:40 Dose: 20 mg Ciprofloxacin (Cipro 400mg/200ml Dsw) 400 mg in 200 mls @ 133 mls/hr IVPB Q12H [facility] PRN Reason: Protocol Last Admin: 01/05/18 13:00 Dose: 133 mls/hr Metronidazole (Flagyl) 500 mg in 100 mls @ 100 mls/hr IVPB Q8 [facility] PRN Reason: Protocol Last Admin: 01/05/18 05:11 Dose: 100 mls/hr Nicotine (Nicoderm Cq) 1 patch TD DAILY [facility] Last Admin: 01/04/18 09:22 Dose: 1 patch Ondansetron HCl (Zofran Inj) 4 mg IVP Q4H PRN PRN Reason: Nausea/Vomiting Potassium Chloride (K-Dur 20 Meq Er Tab) 20 meq PO DAILY [facility] Last Admin: 01/05/18 09:39 Dose: Not Given Vitamin A (Vitamin A & D Oint Ud Foilpak) 1 ea TOP BID [facility] Last Admin: 01/05/18 09:40 Dose: 1 ea - Labs Labs: 01/05/18 06:29 01/05/18 06:29 PT 18.2 SECONDS (9.7-12.2) H 12/21/17 04:16 INR 1.6 12/21/17 04:16 APTT 31 SECONDS (21-34) 12/21/17 04:16 - Constitutional Appears: Non-toxic, No Acute Distress - ENT Exam ENT Exam: Mucous Membranes Moist - Respiratory Exam Respiratory Exam: absent: Accessory Muscle Use, Respiratory Distress - Cardiovascular Exam Cardiovascular Exam: REGULAR RHYTHM. absent: Tachycardia - GI/Abdominal Exam GI & Abdominal Exam: Soft. absent: Distended, Firm, Guarding, Rigid, Tenderness Additional comments: b/l JPs w/ <25cc over past 24 hours - Extremities Exam Extremities Exam: absent: Pedal Edema - Neurological Exam Neurological Exam: Alert, Awake, Oriented x3 - Psychiatric Exam Psychiatric exam: Normal Affect, Normal Mood - Skin Skin Exam: Normal Color, Warm Assessment and Plan - Assessment and Plan (Free Text) Assessment: 62F POD#12 s/p hemigastrectomy Plan: for [facility] once bed available will remove drains prior to d/c continue bowel regimen d/w Dr Sandor Lowe, PGY3
[2018-01-05] MEDS ORDERED: Ciprofloxacin 400mg/200ml D5W 400 MG/200 ML BAG IVPB SCH (15:00)
--- NOTE | 2018-01-05 15:39 | CP.PCM.PN ---
Subjective - Date & Time of Evaluation Date of Evaluation: 01/05/18 Time of Evaluation: 11:00 - Subjective Subjective: patient seen and examined. Lying comfortably in no acute distress Using incentive spirometry Dyspnea on exertion Tolerating diet Chest x-ray showed moderate pleural effusion Consider thoracentesis before discharge Objective - Vital Signs/Intake and Output Vital Signs (last 24 hours): Temp Pulse Resp BP Pulse Ox 97.5 F L 98 H 18 101/66 93 L 01/05/18 07:00 01/05/18 12:03 01/05/18 07:00 01/05/18 07:00 01/05/18 12:03 Intake and Output: 01/05/18 01/05/18 06:59 18:59 Intake Total 860 Output Total 65 Balance 795 - Medications Medications: Current Medications Docusate Sodium (Colace) 100 mg PO BID [facility] Last Admin: 01/05/18 09:40 Dose: 100 mg Famotidine (Pepcid) 20 mg PO BID [facility] Last Admin: 01/05/18 09:40 Dose: 20 mg Fluconazole (Diflucan) 100 mg PO DAILY [facility] PRN Reason: Protocol Last Admin: 01/05/18 15:08 Dose: 100 mg Ciprofloxacin (Cipro 400mg/200ml Dsw) 400 mg in 200 mls @ 133 mls/hr IVPB Q12H [facility] PRN Reason: Protocol Lactobacillus Acidophilus (Bacid Acidophilus) 1 cap PO BID [facility] Nicotine (Nicoderm Cq) 1 patch TD DAILY [facility] Last Admin: 01/04/18 09:22 Dose: 1 patch Ondansetron HCl (Zofran Inj) 4 mg IVP Q4H PRN PRN Reason: Nausea/Vomiting Potassium Chloride (K-Dur 20 Meq Er Tab) 20 meq PO DAILY [facility] Last Admin: 01/05/18 09:39 Dose: Not Given Vitamin A (Vitamin A & D Oint Ud Foilpak) 1 ea TOP BID [facility] Last Admin: 01/05/18 09:40 Dose: 1 ea - Labs Labs: 01/05/18 06:29 01/05/18 06:29 PT 18.2 SECONDS (9.7-12.2) H 12/21/17 04:16 INR 1.6 12/21/17 04:16 APTT 31 SECONDS (21-34) 12/21/17 04:16 Assessment and Plan (1) Pleural effusion Status: Acute
[2018-01-05] MEDS: Lactobacillus Acidophilus 500 MU Cap PO SCH (17:49)
--- NOTE | 2018-01-05 20:48 | CP.PCM.PN ---
Subjective - Date & Time of Evaluation Date of Evaluation: 01/05/18 Time of Evaluation: 03:15 - Subjective Subjective: dictated Objective - Vital Signs/Intake and Output Vital Signs (last 24 hours): Temp Pulse Resp BP Pulse Ox 97.5 F L 81 18 105/67 97 01/05/18 15:00 01/05/18 18:00 01/05/18 15:00 01/05/18 15:00 01/05/18 15:00 Intake and Output: 01/05/18 01/06/18 18:59 06:59 Intake Total 550 Output Total 40 Balance 510 - Medications Medications: Current Medications Docusate Sodium (Colace) 100 mg PO BID [facility] Last Admin: 01/05/18 17:49 Dose: 100 mg Famotidine (Pepcid) 20 mg PO BID [facility] Last Admin: 01/05/18 17:49 Dose: 20 mg Fluconazole (Diflucan) 100 mg PO DAILY [facility] PRN Reason: Protocol Last Admin: 01/05/18 15:08 Dose: 100 mg Ciprofloxacin (Cipro 400mg/200ml Dsw) 400 mg in 200 mls @ 133 mls/hr IVPB Q12H [facility] PRN Reason: Protocol Lactobacillus Acidophilus (Bacid Acidophilus) 1 cap PO BID [facility] Last Admin: 01/05/18 17:49 Dose: 1 cap Nicotine (Nicoderm Cq) 1 patch TD DAILY [facility] Last Admin: 01/04/18 09:22 Dose: 1 patch Ondansetron HCl (Zofran Inj) 4 mg IVP Q4H PRN PRN Reason: Nausea/Vomiting Potassium Chloride (K-Dur 20 Meq Er Tab) 20 meq PO DAILY [facility] Last Admin: 01/05/18 09:39 Dose: Not Given Vitamin A (Vitamin A & D Oint Ud Foilpak) 1 ea TOP BID [facility] Last Admin: 01/05/18 17:49 Dose: 1 ea - Labs Labs: 01/05/18 06:29 01/05/18 06:29 PT 18.2 SECONDS (9.7-12.2) H 12/21/17 04:16 INR 1.6 12/21/17 04:16 APTT 31 SECONDS (21-34) 12/21/17 04:16
[2018-01-06] MEDS: Ciprofloxacin 400mg/200ml D5W 400 MG/200 ML BAG IVPB SCH ×2 (00:08→12:30)
--- NOTE | 2018-01-06 01:39 | PN ---
DATE: 01/05/2018 SUBJECTIVE: The patient was seen today. She has been on Cipro, Flagyl, and Mycamine, and she was feeling a little better. She was on the chair. She says she got some physical therapy. She plans to go to subacute rehab for ambulation. She was tolerating diet, and she is trying to eat. Breathing, she says is a little better, and she had an x-ray today, which I reviewed. PHYSICAL EXAMINATION: VITAL SIGNS: Her temperature is 97.5, pulse 94, blood pressure 105/67, respirations are 18. GENERAL: She was sitting in the chair, and she wanted to go back to the bed, so she has been tolerating that. Her IVY drains have been there to remove the serous fluid that was present before from both the tubes, and she is awake and alert. HEENT: Head is atraumatic and normocephalic. NECK: Supple. LUNGS: Decreased breath sounds on bases. HEART: S1, S2 is regular. ABDOMEN: Soft and nontender. Surgical scar has healed. There are two drains. EXTREMITIES: Have no edema now. LABORATORY DATA: X-ray shows actually moderate venous congestion, moderate loculated layering, right pleural effusion, small left pleural effusion, and moderate venous congestion. Since she does have severe moderate effusion, Pulmonary is suggesting thoracocentesis, hence I left her on intravenous Cipro at this time, and I changed to p.o. and changed the Mycamine to Diflucan as she may not be able to get that in the rehab and continue Diflucan for five days after thoracocentesis. Cipro can be discontinued in one to two days. White count is 10, BUN is 9, creatinine is 0.4. She is status post perforated viscus, had surgery, and now with hypoalbuminemia and venous congestion and effusion, and she had a urine which had yeast. She has no catheter and body fluids had Khloe albicans, hence was changed to Diflucan p.o. Kobe Cruz MD
[2018-01-06] MEDS: Potassium Chloride 20 mEq ER Tab PO SCH (10:00)
[2018-01-06] MEDS: Vitamins A & D Oint UD Foilpak TOP SCH ×2 (10:00→18:10)
[2018-01-06] MEDS: Lactobacillus Acidophilus 500 MU Cap PO SCH ×2 (10:03→18:10)
--- NOTE | 2018-01-06 13:49 | CP.PCM.PN ---
Subjective - Date & Time of Evaluation Date of Evaluation: 01/06/18 Time of Evaluation: 07:30 - Subjective Subjective: Surgery progress note. Dr. Patten Pt seen and examined at bedside. No acute events overnight. No N/V/D. Tolerating diet. Drains removed yesterday. Objective - Vital Signs/Intake and Output Vital Signs (last 24 hours): Temp Pulse Resp BP Pulse Ox 98.7 F 84 22 110/68 96 01/06/18 07:05 01/06/18 07:05 01/06/18 07:05 01/06/18 07:05 01/06/18 07:05 - Medications Medications: Current Medications Docusate Sodium (Colace) 100 mg PO BID [facility] Last Admin: 01/06/18 10:00 Dose: 100 mg Famotidine (Pepcid) 20 mg PO BID [facility] Last Admin: 01/06/18 10:00 Dose: 20 mg Fluconazole (Diflucan) 100 mg PO DAILY [facility] PRN Reason: Protocol Last Admin: 01/06/18 10:03 Dose: 100 mg Ciprofloxacin (Cipro 400mg/200ml Dsw) 400 mg in 200 mls @ 133 mls/hr IVPB Q12H [facility] PRN Reason: Protocol Last Admin: 01/06/18 00:08 Dose: 133 mls/hr Lactobacillus Acidophilus (Bacid Acidophilus) 1 cap PO BID [facility] Last Admin: 01/06/18 10:03 Dose: 1 cap Nicotine (Nicoderm Cq) 1 patch TD DAILY [facility] Last Admin: 01/04/18 09:22 Dose: 1 patch Ondansetron HCl (Zofran Inj) 4 mg IVP Q4H PRN PRN Reason: Nausea/Vomiting Potassium Chloride (K-Dur 20 Meq Er Tab) 20 meq PO DAILY [facility] Last Admin: 01/06/18 10:00 Dose: 20 meq Vitamin A (Vitamin A & D Oint Ud Foilpak) 1 ea TOP BID [facility] Last Admin: 01/06/18 10:00 Dose: 1 ea - Labs Labs: 01/05/18 06:29 01/05/18 06:29 PT 18.2 SECONDS (9.7-12.2) H 12/21/17 04:16 INR 1.6 12/21/17 04:16 APTT 31 SECONDS (21-34) 02/25/18 04:16 - Constitutional Appears: Well, Non-toxic, No Acute Distress - Head Exam Head Exam: ATRAUMATIC, NORMAL INSPECTION, NORMOCEPHALIC - Eye Exam Eye Exam: EOMI, Normal appearance - ENT Exam ENT Exam: Mucous Membranes Moist - Respiratory Exam Respiratory Exam: NORMAL BREATHING PATTERN. absent: Accessory Muscle Use, Respiratory Distress, Stridor - Cardiovascular Exam Cardiovascular Exam: RRR. absent: JVD - GI/Abdominal Exam GI & Abdominal Exam: Soft. absent: Distended, Firm, Guarding, Rigid, Tenderness , Rebound Additional comments: midline incision intact with steristrips. Skin edges well approximated - Extremities Exam Extremities Exam: Normal Inspection. absent: Calf Tenderness - Neurological Exam Neurological Exam: Alert, Awake, Oriented x3 - Psychiatric Exam Psychiatric exam: Normal Affect, Normal Mood - Skin Skin Exam: Dry, Intact, Normal Color, Warm Assessment and Plan - Assessment and Plan (Free Text) Assessment: 62yo F s/p hemigastrectomy. POD 14 Plan: - To [facility] when bed becomes available - Continue current bowel regimen - patient may shower, do not soak or bathe - Encourage OOBTC, physical therapy, IS use. Further recs as per Dr. Sandor Teixeira PGY1 surgery pager: [phone]
--- NOTE | 2018-01-06 17:09 | CP.PCM.PN ---
Subjective - Date & Time of Evaluation Date of Evaluation: 01/06/18 Time of Evaluation: 11:30 - Subjective Subjective: Pulmonary follow up Patient seen and examined at bedside today Reports feeling better but continued mild shortness of breath, tachypnea Afebrile Denies fever/chills, chest pain, cough, wheezing? On supplemental oxygen, saturating 96% Using incentive spirometer Good appetite, tolerating diet Surgical team removed bilateral drains yesterday 01/05 ? Assessment/Plan: 1. Pleural effusion -Most recent chest XR on 01/05: Moderate loculated layering right pleural effusion. Small left pleural effusion. Moderate venous congestion. Airspace opacities in the right mid to lower lung zone as well as the left lung base. Biapical pleural with upper lobe granulomatous changes. -Status post right thoracentesis on 12/29, 900 cc straw-colored fluid removed -Pleural fluid consistent with transudate -Most likely secondary to hypoalbuminemia -Improve nutritional status -Encourage out of bed to chair, work with PT, incentive spirometer use -Recommend therapeutic thoracentesis before discharge ? Objective - Vital Signs/Intake and Output Vital Signs (last 24 hours): Temp Pulse Resp BP Pulse Ox 97.7 F 92 H 18 122/72 94 L 01/06/18 16:05 01/06/18 16:05 01/06/18 16:05 01/06/18 16:05 01/06/18 16:05 Intake and Output: 01/06/18 01/06/18 06:59 18:59 Intake Total 500 Balance 500 - Medications Medications: Current Medications Docusate Sodium (Colace) 100 mg PO BID [facility] Last Admin: 01/06/18 10:00 Dose: 100 mg Famotidine (Pepcid) 20 mg PO BID [facility] Last Admin: 01/06/18 10:00 Dose: 20 mg Fluconazole (Diflucan) 100 mg PO DAILY [facility] PRN Reason: Protocol Last Admin: 01/06/18 10:03 Dose: 100 mg Ciprofloxacin (Cipro 400mg/200ml Dsw) 400 mg in 200 mls @ 133 mls/hr IVPB Q12H [facility] PRN Reason: Protocol Last Admin: 01/06/18 12:30 Dose: 133 mls/hr Lactobacillus Acidophilus (Bacid Acidophilus) 1 cap PO BID [facility] Last Admin: 01/06/18 10:03 Dose: 1 cap Nicotine (Nicoderm Cq) 1 patch TD DAILY [facility] Last Admin: 01/04/18 09:22 Dose: 1 patch Ondansetron HCl (Zofran Inj) 4 mg IVP Q4H PRN PRN Reason: Nausea/Vomiting Potassium Chloride (K-Dur 20 Meq Er Tab) 20 meq PO DAILY [facility] Last Admin: 01/06/18 10:00 Dose: 20 meq Vitamin A (Vitamin A & D Oint Ud Foilpak) 1 ea TOP BID [facility] Last Admin: 01/06/18 10:00 Dose: 1 ea - Labs Labs: 01/05/18 06:29 01/05/18 06:29 PT 18.2 SECONDS (9.7-12.2) H 12/21/17 04:16 INR 1.6 12/21/17 04:16 APTT 31 SECONDS (21-34) 12/21/17 04:16 Assessment and Plan (1) Pleural effusion Status: Acute
--- NOTE | 2018-01-06 20:56 | CP.PCM.PN ---
Subjective - Date & Time of Evaluation Date of Evaluation: 01/06/18 Time of Evaluation: 03:00 - Subjective Subjective: dictated Objective - Vital Signs/Intake and Output Vital Signs (last 24 hours): Temp Pulse Resp BP Pulse Ox 97.7 F 92 H 18 122/72 94 L 01/06/18 16:05 01/06/18 16:05 01/06/18 16:05 01/06/18 16:05 01/06/18 16:05 Intake and Output: 01/06/18 01/07/18 18:59 06:59 Intake Total 500 Balance 500 - Medications Medications: Current Medications Docusate Sodium (Colace) 100 mg PO BID [facility] Last Admin: 01/06/18 18:10 Dose: 100 mg Famotidine (Pepcid) 20 mg PO BID [facility] Last Admin: 01/06/18 18:10 Dose: 20 mg Fluconazole (Diflucan) 100 mg PO DAILY [facility] PRN Reason: Protocol Last Admin: 01/06/18 10:03 Dose: 100 mg Ciprofloxacin (Cipro 400mg/200ml Dsw) 400 mg in 200 mls @ 133 mls/hr IVPB Q12H [facility] PRN Reason: Protocol Last Admin: 01/06/18 12:30 Dose: 133 mls/hr Lactobacillus Acidophilus (Bacid Acidophilus) 1 cap PO BID [facility] Last Admin: 01/06/18 18:10 Dose: 1 cap Nicotine (Nicoderm Cq) 1 patch TD DAILY [facility] Last Admin: 01/04/18 09:22 Dose: 1 patch Ondansetron HCl (Zofran Inj) 4 mg IVP Q4H PRN PRN Reason: Nausea/Vomiting Potassium Chloride (K-Dur 20 Meq Er Tab) 20 meq PO DAILY [facility] Last Admin: 01/06/18 10:00 Dose: 20 meq Vitamin A (Vitamin A & D Oint Ud Foilpak) 1 ea TOP BID [facility] Last Admin: 01/06/18 18:10 Dose: 1 ea - Labs Labs: 01/05/18 06:29 01/05/18 06:29 PT 18.2 SECONDS (9.7-12.2) H 12/21/17 04:16 INR 1.6 12/21/17 04:16 APTT 31 SECONDS (21-34) 12/21/17 04:16
[2018-01-07] MEDS: Ciprofloxacin 400mg/200ml D5W 400 MG/200 ML BAG IVPB SCH (00:01)
--- NOTE | 2018-01-07 07:01 | PN ---
DATE: INFECTIOUS DISEASE FOLLOWUP SUBJECTIVE: The patient was seen today. She said she is going to have tomorrow thoracocentesis. She was still with mild shortness of breath and some tachypnea and her mother was at bedside. She says she still is short of breath and probably will need some thoracentesis, but it is loculated effusion. I am not sure if it will work out, and she also told me her drains were removed so she was more comfortable. She remains on IV antibiotics. I have changed the Mycamine to Diflucan as it can be given in the shelter setting also and left it for 5 days. PHYSICAL EXAMINATION: VITAL SIGNS: T-max today is 97.7, pulse of 92, blood pressure 122/72, respirations are 18. She is not bringing out any phlegm. She says her legs are not swollen anymore, and she is feeling better, but still remains with a little dyspnea. HEENT: Head is atraumatic. She is a thin-built female. NECK: Supple. LUNGS: Decreased breath sounds. HEART: S1, S2, regular. ABDOMEN: Soft, nontender. Drains have been gone. Surgical scar is stable. No guarding. No rigidity present. EXTREMITIES: Have no edema. LABORATORY DATA: Her white count was from yesterday. No new labs have been done; and her sputum, body fluid, and urine had showed yeast but she has no catheter. Sputum also has yeast and she has received Mycamine since these cultures came out, and now we have changed it to Diflucan for the next 5 days. She now has some pleural effusion, she is status post surgery, hypoalbuminemia. Drains have been discontinued and she is looking better and plan is per Pulmonary. Kobe Cruz MD
[2018-01-07] MEDS: Lactobacillus Acidophilus 500 MU Cap PO SCH ×2 (09:49→18:38)
[2018-01-07] MEDS: Potassium Chloride 20 mEq ER Tab PO SCH (09:49)
[2018-01-07] MEDS: Vitamins A & D Oint UD Foilpak TOP SCH ×2 (09:51→18:37)
--- NOTE | 2018-01-07 11:28 | PCM.SURG1 ---
Surgeon's Initial Post Op Note - Surgeon's Notes Surgeon: Jj Conklin MD Milk Pickup Driver: NONE Type of Anesthesia: Local Pre-Operative Diagnosis: right pleural effusion Operative Findings: US showed moderate right pleural effusion Post-Operative Diagnosis: right pleural effusion Operation Performed: US guided right thoracentesis. Specimen/Specimens Removed: 560 cc of straw colored fluid Estimated Blood Loss: EBL {In ML}: 0 Blood Products Given: N/A Drains Used: No Drains Post-Op Condition: Fair Date of Surgery/Procedure: 01/07/18 Time of Surgery/Procedure: 11:25
--- NOTE | 2018-01-07 11:57 | RAD ---
HISTORY: Status post right thoracentesis COMPARISON: Chest radiograph dated 01/05/2018 FINDINGS: LUNGS: Bibasilar atelectasis. PLEURA: Near complete resolution of right pleural effusion post thoracentesis. Small left pleural effusion. No pneumothorax apparent. CARDIOVASCULAR: Atherosclerotic aortic calcifications. Cardiomediastinal silhouette within normal limits. OSSEOUS STRUCTURES: Unchanged. VISUALIZED UPPER ABDOMEN: Normal. OTHER FINDINGS: None. IMPRESSION: Near complete resolution of right pleural effusion post thoracentesis. No appreciable pneumothorax. No other significant interval change.
[2018-01-07 12:54] LABS: BODY FLUID TYPE PLEURAL/THORACENTESI
[2018-01-07 13:32] LABS: BF GROSS APPEARANCE SL CLOUDY (CLEAR); BODY FLUID MONO/MACROPHAGE 3 % (0-0)
--- NOTE | 2018-01-07 14:10 | US ---
PROCEDURE: Date of procedure: 01/07/2018 Procedure: 1. Ultrasound-guided Right thoracentesis, CPT 56335 Medications: 6cc 1% Lidocaine HISTORY: Right pleural effusion, shortness of breath TECHNIQUE: Following informed consent ,the Patients' right chest was marked. Procedure time-out was called, and the patient was placed in the sitting position and limited ultrasound showed a large right effusion. The patient's right back was prepped and draped in the usual sterile fashion. After the skin was anesthetized with lidocaine, a drainage catheter was advanced under ultrasound guidance into the pleural space. Ultrasound-guided thoracentesis was performed. A total of 500 cubic centimeters of straw-colored fluid removed without complication. A Xeroform dressing was applied. IMPRESSION: Ultrasound guided Right thoracentesis. There were no immediate complications.
--- NOTE | 2018-01-07 15:55 | CP.PCM.DIS ---
Provider - Provider Date of Admission: 12/20/17 23:47 Attending physician: Luciano Patten MD Time Spent in preparation of Discharge (in minutes): 45 Hospital Course - Lab Results Lab Results: Micro Results 12/28/17 09:00 Blood Blood Culture - Final NO GROWTH AFTER 5 DAYS 12/28/17 09:00 Blood Gram Stain - Final TEST NOT PERFORMED 12/28/17 08:40 Blood Blood Culture - Final NO GROWTH AFTER 5 DAYS 12/28/17 08:40 Blood Gram Stain - Final TEST NOT PERFORMED 12/28/17 Unknown Body Fluid - Abdominal Gram Stain - Final 12/28/17 Unknown Body Fluid - Abdominal Body Fluid Culture - Final Khloe Albicans 12/28/17 09:00 Urine Urine Culture - Final Yeast Species 12/28/17 09:00 Sputum Gram Stain - Final 12/28/17 09:00 Sputum Sputum Culture - Final Yeast Species 12/27/17 19:00 Urine,Clean Catch Urine Culture - Final No Growth (<1,000 CFU/ML) 12/25/17 13:38 Pleural Fluid Gram Stain - Final 12/25/17 13:38 Pleural Fluid Body Fluid Culture - Final No growth. 12/20/17 21:00 Blood Blood Culture - Final NO GROWTH AFTER 5 DAYS 12/20/17 21:00 Blood Gram Stain - Final TEST NOT PERFORMED 12/20/17 20:30 Blood Blood Culture - Final NO GROWTH AFTER 5 DAYS 12/23/17 23:05 Nose MRSA Culture (Admit) - Final MRSA NOT DETECTED 12/22/17 Unknown Naris MRSA Culture - Final MRSA NOT DETECTED 12/21/17 Unknown Nose MRSA Culture (Admit) - Final MRSA NOT DETECTED 12/21/17 Unknown Urine,Catheterized Urine Culture - Final No Growth (<1,000 CFU/ML) Most Recent Lab Values WBC 10.0 K/uL (4.8-10.8) 01/05/18 06:29 RBC 3.32 Mil/uL (3.80-5.20) L 01/05/18 06:29 Hgb 9.6 g/dL (11.0-16.0) L 01/05/18 06:29 Hct 28.4 % (34.0-47.0) L 01/05/18 06:29 MCV 85.7 fL (81.0-99.0) 01/05/18 06:29 MCH 29.0 pg (27.0-31.0) 01/05/18 06: MCHC 33.9 g/dL (33.0-37.0) 01/05/18 06:29 RDW 14.9 % (11.5-14.5) H 01/05/18 06:29 Plt Count 565 K/uL (130-400) H 01/05/18 06:29 MPV 7.6 fL (7.2-11.7) 01/05/18 06:29 Neut % (Auto) 81.4 % (50.0-75.0) H 01/05/18 06:29 Lymph % (Auto) 8.6 % (20.0-40.0) L 01/05/18 06: Phelps % (Auto) 9.0 % (0.0-10.0) 01/05/18 06: Eos % (Auto) 0.3 % (0.0-4.0) 01/05/18 06: Baso % (Auto) 0.7 % (0.0-2.0) 01/05/18 06:29 Neut # (Auto) 8.2 K/uL (1.8-7.0) H 01/05/18 06:29 Lymph # (Auto) 0.9 K/uL (1.0-4.3) L 01/05/18 06:29 Phelps # (Auto) 0.9 K/uL (0.0-0.8) H 01/05/18 06:29 Eos # (Auto) 0.0 K/uL (0.0-0.7) 01/05/18 06: Baso # (Auto) 0.1 K/uL (0.0-0.2) 01/05/18 06:29 Neutrophils % (Manual) 93 % (50-75) H 01/05/18 06:29 Band Neutrophils % 1 % (0-2) 12/29/17 08:16 Lymphocytes % (Manual) 4 % (20-40) L 01/05/18 06:29 Reactive Lymphs % TEST NOT PERFORMED 12/29/17 08:16 Monocytes % (Manual) 3 % (0-10) 01/05/18 06:29 Differential Comment 12/21/17 04:49 Platelet Estimate Increased (NORMAL) H 01/05/18 06:29 RBC Morphology Normal 12/23/17 08:27 Polychromasia Slight 01/05/18 06:29 Hypochromasia (manual) Slight 01/05/18 06:29 Anisocytosis (manual) Slight 12/28/17 12:58 Microcytosis (manual) Slight 12/28/17 12:58 Ovalocytes Slight 12/28/17 12:58 ESR 45 mm/hr (0-20) H 12/29/17 08:16 PT 18.2 SECONDS (9.7-12.2) H 12/21/17 04:16 INR 1.6 12/21/17 04:16 APTT 31 SECONDS (21-34) 12/21/17 04:16 Puncture Site Rr 12/25/17 05:12 pCO2 47 mm/Hg (35-45) H 12/25/17 05:12 pO2 95 mm/Hg (80-100) 12/25/17 05:12 HCO3 27.3 mmol/L (21-28) 12/25/17 05:12 ABG pH 7.39 (7.35-7.45) 12/25/17 05:12 ABG Total CO2 29.9 mmol/L (22-28) H 12/25/17 05:12 ABG O2 Saturation 99.2 % (95-98) H 12/25/17 05:12 ABG Base Excess 3.0 mmol/L (-2.0-3.0) 12/25/17 05:12 ABG Hemoglobin 9.7 g/dL (11.7-17.4) L 12/25/17 05:12 ABG Carboxyhemoglobin 2.0 % (0.5-1.5) H 12/25/17 05:12 POC ABG HHb (Measured) 0.8 % (0.0-5.0) 12/25/17 05:12 ABG Methemoglobin 1.4 % (0.0-3.0) 12/25/17 05:12 Anoop Test Pos 12/25/17 05:12 VBG pH 7.37 (7.32-7.43) 12/20/17 20:32 VBG pCO2 64 mmHg (40-60) H 12/20/17 20:32 VBG HCO3 30.4 mmol/L 12/20/17 20:32 VBG Total CO2 39.0 mmol/L (22-28) H 12/20/17 20:32 VBG O2 Sat (Calc) 28.0 % (40-65) L 12/20/17 20:32 VBG Base Excess 9.2 mmol/L (0.0-2.0) H 12/20/17 20:32 VBG Potassium 2.3 mmol/L (3.6-5.2) L* 12/20/17 20:32 A-a O2 Difference 203.0 mm/Hg 12/25/17 05:12 Respiratory Index 2.1 12/25/17 05:12 Hgb O2 Saturation 95.8 % (95.0-98.0) 12/25/17 05:12 Sodium 141.0 mmol/l (132-148) 12/20/17 20:32 Chloride 93.0 mmol/L (98-107) L 12/20/17 20:32 Glucose 285 mg/dl (65-105) H 12/20/17 20:32 Lactate 5.5 mmol/L (0.7-2.1) H* 12/20/17 20:32 Vent Mode Prvc 12/25/17 05:12 Mechanical Rate 16 12/25/17 05:12 FiO2 50.0 % 12/25/17 05:12 Tidal Volume 450 12/25/17 05:12 PEEP 5 12/25/17 05:12 Crit Value Called To Dr. holcomb 12/20/17 20:32 Crit Value Called By Arjun christiansen 12/20/17 20:32 Crit Value Read Back Y 12/20/17 20:32 Blood Gas Notified Time 203512/20/17 20:32 Sodium 134 mmol/L (132-148) 01/05/18 06:29 Potassium 3.9 mmol/L (3.6-5.2) 01/05/18 06:29 Chloride 93 mmol/L (98-107) L 01/05/18 06:29 Carbon Dioxide 30 mmol/L (22-30) 01/05/18 06:29 Anion Gap 15 (10-20) 01/05/18 06:29 BUN 9 mg/dL (7-17) 01/05/18 06:29 Creatinine 0.4 mg/dL (0.7-1.2) L 01/05/18 06:29 Est GFR ( Amer) > 60 01/05/18 06:29 Est GFR (Non-Af Amer) > 60 01/05/18 06:29 POC Glucose (mg/dL) 158 mg/dL (65-110) H 12/29/17 06:15 Random Glucose 133 mg/dL (65-105) H 01/05/18 06:29 Lactic Acid 1.9 mmol/L (0.7-2.1) 12/21/17 04:49 Calcium 7.6 mg/dl (8.6-10.4) L 01/05/18 06:29 Phosphorus 2.9 mg/dL (2.5-4.5) 12/30/17 07:38 Magnesium 1.5 mg/dL (1.6-2.3) L 12/30/17 07:38 Total Bilirubin 0.1 mg/dL (0.2-1.3) L 01/05/18 06:29 AST 23 U/L (14-36) 01/05/18 06:29 ALT 28 U/L (9-52) 01/05/18 06:29 Alkaline Phosphatase 61 U/L (38-126) 01/05/18 06:29 C-React Prot High Sens > 15.00 mg/L (1.00-3.00) H 12/29/17 08:16 Total Protein 4.8 g/dL (6.3-8.3) L 01/05/18 06:29 Albumin 2.2 g/dL (3.5-5.0) L 01/05/18 06:29 Globulin 2.5 gm/dL (2.2-3.9) 01/05/18 06:29 Albumin/Globulin Ratio 0.9 (1.0-2.1) L 01/05/18 06:29 Prealbumin 7.2 mg/dL (17.6-36.0) L 01/02/18 09:07 Lipase 44 U/L (23-300) 12/20/17 19:57 Procalcitonin 0.78 NG/ML (0.19-0.49) H 12/31/17 17:00 Venous Blood Potassium 2.3 mmol/L (3.6-5.2) L* 12/20/17 20:32 Urine Color Yellow (YELLOW) 01/02/18 19:12 Urine Clarity Clear (Clear) 01/02/18 19:12 Urine pH 8.0 (5.0-8.0) 01/02/18 19:12 Ur Specific [place] 1.014 (1.003-1.030) 01/02/18 19:12 Urine Protein Negative mg/dL (NEGATIVE) 01/02/18 19:12 Urine Glucose (UA) Normal mg/dL (Normal) 01/02/18 19:12 Urine Ketones Negative mg/dL (NEGATIVE) 01/02/18 19:12 Urine Blood 1+ (NEGATIVE) H 01/02/18 19:12 Urine Nitrate Negative (NEGATIVE) 01/02/18 19:12 Urine Bilirubin Negative (NEGATIVE) 01/02/18 19:12 Urine Urobilinogen Normal mg/dL (0.2-1.0) 01/02/18 19:12 Ur Leukocyte Esterase Neg Zoe/uL (Negative) 01/02/18 19:12 Urine WBC (Auto) 1 /hpf (0-5) 01/02/18 19:12 Urine RBC (Auto) 4 /hpf (0-3) H 01/02/18 19:12 Ur Squamous Epith Cells 2 /hpf (0-5) 01/02/18 19:12 Urine Bacteria Rare (<OCC) 12/21/17 01:30 Urine Yeast (Budding) Rare /hpf (NEGATIVE) H 12/29/17 07:45 Fluid Source Pleural/thoracentesi 01/07/18 12:52 Fluid Appearance Sl cloudy (CLEAR) 01/07/18 12:52 Fluid WBC 728.0 /mm3 (0.0-300.0) H 01/07/18 12:52 Fluid RBC 6507.0 /mm3 (0.0-0.0) H 01/07/18 12:52 Fluid Tot Cell Count TEST NOT PERFORMED 01/07/18 12:52 Fluid Neutrophils 78.0 % (0-0) H 01/07/18 12:52 Fluid Lymphocytes 18.0 % (0-0) H 01/07/18 12:52 Fld Monocyte/Macrophag 3 % (0-0) H 01/07/18 12:52 Fluid Albumin 1.3 g/dL 12/25/17 13:38 Fluid Comment 01/07/18 12:52 Pleural Total Protein <3.0 g/dL 12/25/17 13:38 Pleural LDH 129 U/L 12/25/17 13:38 Pleural Glucose 89 mg/dL 12/25/17 13:38 Pleural Amylase 15 U/L 12/25/17 13:38 Pleural Lipase see note 12/25/17 13:02 Pleural Cholesterol 32 mg/dL 12/25/17 13:38 Pleural Triglycerides 48 mg/dL 12/25/17 13:38 Pleur Adenosine Deamin 4.7 U/L (<9.2) 12/25/17 13:02 Pleural Fluid CEA <0.5 ng/mL (<10.0) 12/25/17 13:38 C. difficile Ag & Toxin Negative (NEGATIVE) 12/29/17 Unknown Blood Type A POSITIVE 12/21/17 01:06 Blood Type Confirm A POSITIVE 12/21/17 01:06 Antibody Screen Negative 12/21/17 01:06 - Hospital Course Hospital Course: 62yo F with hx of peptic ulcer disease came into ER for evaluation of abdominal pain. Found to have perforated anterior gastric ulcer repaired with alison patch. Post-operative course complicated by failure of alison patch repair and patient was re-operated with distal jan-gastrectomy w/ billroth II gastrojejunostomy. Extended recovery and post-operative complication of poor nutritional status. Patient developed recurrent pleural effusions and received multiple therapeutic thoracenthesis. Patient improved with IV albumin infusions and slowly improving nutritional status. Abdominal elsa and drains were removed. Patient was cleared for discharge to rehab facility for deconditioning. Discharge Exam - Head Exam Head Exam: ATRAUMATIC, NORMAL INSPECTION, NORMOCEPHALIC - Eye Exam Eye Exam: EOMI, Normal appearance. absent: Scleral icterus - ENT Exam ENT Exam: Mucous Membranes Moist - Respiratory Exam Respiratory Exam: NORMAL BREATHING PATTERN, UNREMARKABLE. absent: Accessory Muscle Use, Respiratory Distress Additional comments: mild decreased breath sounds at right base - Cardiovascular Exam Cardiovascular Exam: RRR. absent: JVD - GI/Abdominal Exam GI & Abdominal Exam: Soft. absent: Distended, Guarding, Rebound, Rigid, Tenderness Additional comments: midline incision intact. skin edges well approximated and healing well - Extremities Exam Extremities exam: normal inspection - Neurological Exam Neurological exam: Alert, Oriented x3 - Psychiatric Exam Psychiatric exam: Normal Affect, Normal Mood - Skin Skin Exam: Dry, Intact, Normal Color, Warm Discharge Plan - Follow Up Plan Condition: GUARDED Disposition: REHAB FACILITY/REHAB UNIT Instructions: Pleural Effusion (DC), Sepsis, Adult (DC), Fluid in the Belly ( Ascites) (DC), Exploratory Laparotomy (DC), Thoracentesis (DC), Gastrectomy (DC) Referrals: Luciano Patten MD [Staff Provider] -
--- NOTE | 2018-01-07 16:43 | CP.PCM.PN ---
Subjective - Date & Time of Evaluation Date of Evaluation: 01/07/18 Time of Evaluation: 11:00 - Subjective Subjective: Patient seen and examined at bedside today Reports feeling better but continued mild shortness of breath, tachypnea Afebrile Denies fever/chills, chest pain, cough, wheezing On supplemental oxygen, saturating 96% Using incentive spirometer Good appetite, tolerating diet Surgical team removed bilateral drains on 01/05 Per surgical team, has placement in [facility] pending thoracentesis prior to discharge Assessment/Plan: 1. Pleural effusion -Most recent chest XR on 01/05: Moderate loculated layering right pleural effusion. Small left pleural effusion. Moderate venous congestion. Airspace opacities in the right mid to lower lung zone as well as the left lung base. Biapical pleural with upper lobe granulomatous changes. -Status post right thoracentesis on 12/29, 900 cc straw-colored fluid removed -Pleural fluid consistent with transudate -Most likely secondary to hypoalbuminemia -Improve nutritional status -Encourage out of bed to chair, work with PT, incentive spirometer use -thoracentesis done today [id number] mL of straw-colored fluid Objective - Vital Signs/Intake and Output Vital Signs (last 24 hours): Temp Pulse Resp BP Pulse Ox 97.9 F 103 H 18 103/66 96 01/07/18 07:30 01/07/18 07:35 01/07/18 07:30 01/07/18 07:30 01/07/18 07:30 Intake and Output: 01/07/18 01/07/18 06:59 18:59 Intake Total 400 450 Balance 400 450 - Medications Medications: Current Medications Docusate Sodium (Colace) 100 mg PO BID [facility] Last Admin: 01/07/18 09:51 Dose: 100 mg Famotidine (Pepcid) 20 mg PO BID [facility] Last Admin: 01/07/18 09:50 Dose: 20 mg Fluconazole (Diflucan) 100 mg PO DAILY [facility] PRN Reason: Protocol Last Admin: 01/07/18 09:50 Dose: 100 mg Ciprofloxacin (Cipro 400mg/200ml Dsw) 400 mg in 200 mls @ 133 mls/hr IVPB Q12H [facility] PRN Reason: Protocol Last Admin: 01/07/18 00:01 Dose: 133 mls/hr Lactobacillus Acidophilus (Bacid Acidophilus) 1 cap PO BID [facility] Last Admin: 01/07/18 09:49 Dose: 1 cap Nicotine (Nicoderm Cq) 1 patch TD DAILY [facility] Last Admin: 01/04/18 09:22 Dose: 1 patch Ondansetron HCl (Zofran Inj) 4 mg IVP Q4H PRN PRN Reason: Nausea/Vomiting Potassium Chloride (K-Dur 20 Meq Er Tab) 20 meq PO DAILY [facility] Last Admin: 01/07/18 09:49 Dose: 20 meq Vitamin A (Vitamin A & D Oint Ud Foilpak) 1 ea TOP BID [facility] Last Admin: 01/07/18 09:51 Dose: 1 ea - Labs Labs: 01/05/18 06:29 01/05/18 06:29 PT 18.2 SECONDS (9.7-12.2) H 12/21/17 04:16 INR 1.6 12/21/17 04:16 APTT 31 SECONDS (21-34) 12/21/17 04:16 Assessment and Plan (1) Pleural effusion Status: Acute
--- NOTE | 2018-01-07 20:32 | CP.PCM.PN ---
Subjective - Date & Time of Evaluation Date of Evaluation: 01/07/18 Time of Evaluation: 02:15 - Subjective Subjective: dictated Objective - Vital Signs/Intake and Output Vital Signs (last 24 hours): Temp Pulse Resp BP Pulse Ox 97.4 F L 103 H 18 100/59 L 97 01/07/18 15:05 01/07/18 15:05 01/07/18 15:05 01/07/18 15:05 01/07/18 15:05 Intake and Output: 01/07/18 01/08/18 18:59 06:59 Intake Total 450 Balance 450 - Medications Medications: Current Medications Docusate Sodium (Colace) 100 mg PO BID [facility] Last Admin: 01/07/18 18:38 Dose: 100 mg Famotidine (Pepcid) 20 mg PO BID [facility] Last Admin: 01/07/18 18:38 Dose: 20 mg Fluconazole (Diflucan) 100 mg PO DAILY [facility] PRN Reason: Protocol Last Admin: 01/07/18 09:50 Dose: 100 mg Ciprofloxacin (Cipro 400mg/200ml Dsw) 400 mg in 200 mls @ 133 mls/hr IVPB Q12H [facility] PRN Reason: Protocol Last Admin: 01/07/18 00:01 Dose: 133 mls/hr Lactobacillus Acidophilus (Bacid Acidophilus) 1 cap PO BID [facility] Last Admin: 01/07/18 18:38 Dose: 1 cap Nicotine (Nicoderm Cq) 1 patch TD DAILY [facility] Last Admin: 01/04/18 09:22 Dose: 1 patch Ondansetron HCl (Zofran Inj) 4 mg IVP Q4H PRN PRN Reason: Nausea/Vomiting Potassium Chloride (K-Dur 20 Meq Er Tab) 20 meq PO DAILY [facility] Last Admin: 01/07/18 09:49 Dose: 20 meq Vitamin A (Vitamin A & D Oint Ud Foilpak) 1 ea TOP BID [facility] Last Admin: 01/07/18 18:37 Dose: 1 ea - Labs Labs: 01/05/18 06:29 01/05/18 06:29 PT 18.2 SECONDS (9.7-12.2) H 12/21/17 04:16 INR 1.6 12/21/17 04:16 APTT 31 SECONDS (21-34) 12/21/17 04:16
[2018-01-08] MEDS: Ciprofloxacin 400mg/200ml D5W 400 MG/200 ML BAG IVPB SCH ×3 (01:01→14:08)
[2018-01-08 01:19] VITALS: RESP 20
--- NOTE | 2018-01-08 01:20 | PN ---
DATE: 01/07/2018 SUBJECTIVE: The patient was seen today. She had pleural tap done which was mostly bloody and she says she was having some cough after this. She was still on oxygen and appeared weak and she is frail. OBJECTIVE: VITAL SIGNS: T-max is 97.9 and it was 97.4, heart rate of 103, blood pressure 103/66, respirations 18, saturation was 96%. HEENT: Head is atraumatic. NECK: Supple. LUNGS: Decreased breath sounds bilaterally. HEART: S1, S2 tachycardic. ABDOMEN: Soft, nontender. No guarding, no rigidity present. EXTREMITIES: Lower extremities have no edema and she was sitting in the chair. ASSESSMENT AND PLAN: She had 560 ml of straw-colored fluid removed by ultrasound-guided right thoracocentesis today by Dr. Conklin and labs today, there are no new labs done since and so, she will be going for further rehab and she is status post right pleural effusion and laparotomy x2 and has now recovered from it and needs rehab for ambulation. Kobe Cruz MD
[2018-01-08] MEDS: Vitamins A & D Oint UD Foilpak TOP SCH (11:01)
[2018-01-08] MEDS: Lactobacillus Acidophilus 500 MU Cap PO SCH (11:01)
[2018-01-08] MEDS: Potassium Chloride 20 mEq ER Tab PO SCH (11:01)
[2018-01-08 15:59] VITALS: BP 99/64; PULSE 103; TEMP 97.5; O2SAT 99
== END 2018-01-08 16:12 | DRG 327 ==
LOC: C.ER 18:58 → C.3T 23:47 → C.9I 12-21 02:53 → C.5S 12-22 20:15 → C.9I 12-23 22:25 → C.6T 12-26 14:14
PROVIDERS: ADMIT Surgery; ATTEND Surgery
PROC: 0W9G30Z Drainage of Peritoneal Cavity with Drainage Device, Percutaneous Approach (ICD-10-PCS; 2017-12-21)
PROC: 0DU907Z Supplement Duodenum with Autologous Tissue Substitute, Open Approach (ICD-10-PCS; principal; 2017-12-21 00:52)
PROC: 0DB60ZZ Excision of Stomach, Open Approach (ICD-10-PCS; 2017-12-23)
PROC: 3E1M38Z Irrigation of Peritoneal Cavity using Irrigating Substance, Percutaneous Approach (ICD-10-PCS; 2017-12-23)
PROC: 5A1945Z Respiratory Ventilation, 24-96 Consecutive Hours (ICD-10-PCS; 2017-12-23)
PROC: 0BH17EZ Insertion of Endotracheal Airway into Trachea, Via Natural or Artificial Opening (ICD-10-PCS; 2017-12-23)
PROC: 0W993ZX Drainage of Right Pleural Cavity, Percutaneous Approach, Diagnostic (ICD-10-PCS; 2017-12-25)
PROC: 0W993ZZ Drainage of Right Pleural Cavity, Percutaneous Approach (ICD-10-PCS; 2017-12-29)
PROC: 0W993ZZ Drainage of Right Pleural Cavity, Percutaneous Approach (ICD-10-PCS; 2018-01-07)
DX: K25.5 Chronic or unspecified gastric ulcer with perforation (principal); R18.8 Other ascites; J90 Pleural effusion, not elsewhere classified; E88.09 Other disorders of plasma-protein metabolism, not elsewhere classified; F17.210 Nicotine dependence, cigarettes, uncomplicated; T85.898A Other specified complication of other internal prosthetic devices, implants and grafts, initial encounter; Y83.8 Other surgical procedures as the cause of abnormal reaction of the patient, or of later complication, without mention of misadventure at the time of the procedure; Z88.0 Allergy status to penicillin

== ENCOUNTER 2019-02-04 15:21 | Emergency (ER) | payer OTHER ==
[2019-02-04] MEDS ORDERED: Sodium Chloride 0.9% 1,000 ML IV ONE (16:08)
[2019-02-04] MEDS ORDERED: Morphine 4 MG/ML VIAL IV STA (16:10)
[2019-02-04 16:44] LABS: BASO # 0.1 K/uL (0.0-0.2); BASO % 0.8 % (0.0-2.0); EOS # 0.1 K/uL (0.0-0.7); EOS % 0.9 % (0.0-4.0); LYMPH # 1.7 K/uL (1.0-4.3); LYMPH % 19.3 % (20.0-40.0); MEAN CELL VOLUME 85.9 fL (81.0-99.0); MEAN CORPUSCULAR HEMOGLOBIN 28.7 pg (27.0-31.0); MEAN CORPUSCULAR HGB CONC 33.4 g/dL (33.0-37.0); MONO # 0.5 K/uL (0.0-0.8); MONO % 5.2 % (0.0-10.0); NEUT # 6.6 K/uL (1.8-7.0); NEUT % 73.8 % (50.0-75.0); RBC 5.18 Mil/uL (3.80-5.20); RED CELL DISTRIBUTION WIDTH 13.6 % (11.5-14.5)
[2019-02-04] MEDS ORDERED: Sodium Chloride 0.9% 1,000 ML ONE (16:44)
[2019-02-04 16:49] LABS: HEMOGLOBIN 14.9 g/dL (11.0-16.0)
[2019-02-04 17:08] LABS: ALB/GLOB RATIO 1.6 (1.0-2.1); ALBUMIN 4.3 g/dL (3.5-5.0); ALT/SGPT 10 U/L (9-52); AST/SGOT 24 U/L (14-36); BLOOD UREA NITROGEN 15 mg/dL (7-17); CALCIUM 9.8 mg/dl (8.6-10.4); GFR NON-AFRICAN AMERICAN > 60; LIPASE 93 U/L (23-300)
[2019-02-04 17:18] LABS: SQUAMOUS EPITHIAL < 1 /hpf (0-5); URINE BILIRUBIN NEGATIVE (NEGATIVE); URINE BLOOD NEGATIVE (NEGATIVE); URINE CLARITY Clear (Clear); URINE COLOR Yellow (YELLOW); URINE GLUCOSE (UA) NORMAL (Normal); URINE LEUKOCYTE ESTERASE NEG Leu/uL (Negative); URINE PROTEIN NEGATIVE (NEGATIVE); URINE UROBILINOGEN NORMAL mg/dL (0.2-1.0)
[2019-02-04] MEDS ORDERED: Iohexol 350mg/ml 100 ML ONE (17:51)
--- NOTE | 2019-02-04 19:05 | C.PDOC ---
History Of Present Illness 63 year old female sent to ED by her PMD for evaluation of left lower quadrant tenderness that began yesterday. Patient also complains of nausea. He has a PSHx of perforated gastric ulcer and surgical repair. He denies vomiting, diarrhea, and fever. <Moise Horne DO - Last Filed: 02/04/19 18:57> History Per: Patient History/Exam Limitations: no limitations Onset/Duration Of Symptoms: Days (1) Current Symptoms Are (Timing): Still Present Location Of Pain/Discomfort: LLQ Radiation Of Pain To:: None Quality Of Discomfort: "Pain" Associated Symptoms: denies: Fever, Vomiting, Diarrhea <Moise Horne DO - Last Filed: 02/04/19 18:57> <Germaine Gonzales - Last Filed: 02/04/19 20:45> Chief Complaint (Nursing): Abdominal Pain Past Medical History Reviewed: Historical Data, Nursing Documentation, Vital Signs Vital Signs: Last Vital Signs Temp 97.6 F 02/04/19 15:24 Pulse 82 02/04/19 15:24 Resp 20 02/04/19 15:24 BP 110/66 02/04/19 16:51 Pulse Ox 99 02/04/19 15:24 - Medical History PMH: Denies: Chronic Kidney Disease - [facility] Procedures DRAINAGE OF PERITONEAL CAVITY WITH DRAIN DEV, PERC APPROACH (12/20/17) DRAINAGE OF RIGHT PLEURAL CAVITY, PERC APPROACH, DIAGN (12/20/17) DRAINAGE OF RIGHT PLEURAL CAVITY, PERCUTANEOUS APPROACH (12/20/17) EXCISION OF STOMACH, OPEN APPROACH (12/20/17) INSERTION OF ENDOTRACHEAL AIRWAY INTO TRACHEA, VIA OPENING (12/20/17) IRRIGATION OF PERITONEAL CAVITY USING IRRIGAT, PERC APPROACH (12/20/17) RESPIRATORY VENTILATION, 24-96 CONSECUTIVE HOURS (12/20/17) SUPPLEMENT DUODENUM WITH AUTOL SUB, OPEN APPROACH (12/20/17) - Social History Hx Tobacco Use: Yes Hx Alcohol Use: Yes Hx Substance Use: No - Immunization History Hx Tetanus Toxoid Vaccination: No Hx Influenza Vaccination: No Hx Pneumococcal Vaccination: No <Moise Horne DO - Last Filed: 02/04/19 18:57> Vital Signs: Last Vital Signs Temp 98.5 F 02/04/19 19:24 Pulse 74 02/04/19 19:24 Resp 18 02/04/19 19:24 BP 108/67 02/04/19 19:24 Pulse Ox 98 02/04/19 19:24 - [facility] Procedures DRAINAGE OF PERITONEAL CAVITY WITH DRAIN DEV, PERC APPROACH (12/20/17) DRAINAGE OF RIGHT PLEURAL CAVITY, PERC APPROACH, DIAGN (12/20/17) DRAINAGE OF RIGHT PLEURAL CAVITY, PERCUTANEOUS APPROACH (12/20/17) EXCISION OF STOMACH, OPEN APPROACH (12/20/17) INSERTION OF ENDOTRACHEAL AIRWAY INTO TRACHEA, VIA OPENING (12/20/17) IRRIGATION OF PERITONEAL CAVITY USING IRRIGAT, PERC APPROACH (12/20/17) RESPIRATORY VENTILATION, 24-96 CONSECUTIVE HOURS (12/20/17) SUPPLEMENT DUODENUM WITH AUTOL SUB, OPEN APPROACH (12/20/17) Family History: States: Unknown Family Hx <Germaine Gonzales - Last Filed: 02/04/19 20:45> Review Of Systems Constitutional: Negative for: Fever Gastrointestinal: Positive for: Nausea, Abdominal Pain (left lower quadrant). Negative for: Vomiting, Diarrhea <Moise Horne DO - Last Filed: 02/04/19 18:57> Physical Exam - Physical Exam Appears: Other (mildly distressed) Skin: Normal Color, Warm, Dry Head: Atraumatic, Normacephalic Neck: Normal ROM, Supple Chest: Symmetrical, No Deformity Cardiovascular: Rhythm Regular, No Murmur Respiratory: No Accessory Muscle Use, No Rales, No Rhonchi, No Wheezing Gastrointestinal/Abdominal: Bowel Sounds (normoactive), Soft, Tenderness (left-sided), Other (well-healed midline surgical scar) Extremity: Capillary Refill (<2 seconds) Neurological/Psych: Oriented x3, Normal Speech, Normal Cognition <Moise Horne DO - Last Filed: 02/04/19 18:57> ED Course And Treatment - Laboratory Results Result Diagrams: 02/04/19 16:37 02/04/19 16:37 Lab Results: Total Bilirubin 0.2 mg/dL (0.2-1.3) 02/04/19 16:37 AST 24 U/L (14-36) 02/04/19 16:37 ALT 10 U/L (9-52) 02/04/19 16:37 Alkaline Phosphatase 83 U/L (38-126) 02/04/19 16:37 Total Protein 7.0 g/dL (6.3-8.3) 02/04/19 16:37 Albumin 4.3 g/dL (3.5-5.0) 02/04/19 16:37 Globulin 2.7 gm/dL (2.2-3.9) 02/04/19 16:37 Albumin/Globulin Ratio 1.6 (1.0-2.1) 02/04/19 16:37 Lipase 93 U/L (23-300) 02/04/19 16:37 Urine Color Yellow (YELLOW) 02/04/19 16:49 Urine Clarity Clear (Clear) 02/04/19 16:49 Urine pH 5.0 (5.0-8.0) 02/04/19 16:49 Ur Specific [place] 1.020 (1.003-1.030) 02/04/19 16:49 Urine Protein Negative mg/dL (NEGATIVE) 02/04/19 16:49 Urine Glucose (UA) Normal mg/dL (Normal) 02/04/19 16:49 Urine Ketones Negative mg/dL (NEGATIVE) 02/04/19 16:49 Urine Blood Negative (NEGATIVE) 02/04/19 16:49 Urine Nitrate Negative (NEGATIVE) 02/04/19 16:49 Urine Bilirubin Negative (NEGATIVE) 02/04/19 16:49 Urine Urobilinogen Normal mg/dL (0.2-1.0) 02/04/19 16:49 Ur Leukocyte Esterase Neg Zoe/uL (Negative) 02/04/19 16:49 Urine WBC (Auto) < 1 /hpf (0-5) 02/04/19 16:49 Urine RBC (Auto) 1 /hpf (0-3) 02/04/19 16:49 Ur Squamous Epith Cells < 1 /hpf (0-5) 02/04/19 16:49 O2 Sat by Pulse Oximetry: 99 (in RA) <Moise Horne DO - Last Filed: 02/04/19 18:57> - Laboratory Results Result Diagrams: 02/04/19 16:37 02/04/19 16:37 Lab Results: Total Bilirubin 0.2 mg/dL (0.2-1.3) 02/04/19 16:37 AST 24 U/L (14-36) 02/04/19 16:37 ALT 10 U/L (9-52) 02/04/19 16:37 Alkaline Phosphatase 83 U/L (38-126) 02/04/19 16:37 Total Protein 7.0 g/dL (6.3-8.3) 02/04/19 16:37 Albumin 4.3 g/dL (3.5-5.0) 02/04/19 16:37 Globulin 2.7 gm/dL (2.2-3.9) 02/04/19 16:37 Albumin/Globulin Ratio 1.6 (1.0-2.1) 02/04/19 16:37 Lipase 93 U/L (23-300) 02/04/19 16:37 Urine Color Yellow (YELLOW) 02/04/19 16:49 Urine Clarity Clear (Clear) 02/04/19 16:49 Urine pH 5.0 (5.0-8.0) 02/04/19 16:49 Ur Specific [place] 1.020 (1.003-1.030) 02/04/19 16:49 Urine Protein Negative mg/dL (NEGATIVE) 02/04/19 16:49 Urine Glucose (UA) Normal mg/dL (Normal) 02/04/19 16:49 Urine Ketones Negative mg/dL (NEGATIVE) 02/04/19 16:49 Urine Blood Negative (NEGATIVE) 02/04/19 16:49 Urine Nitrate Negative (NEGATIVE) 02/04/19 16:49 Urine Bilirubin Negative (NEGATIVE) 02/04/19 16:49 Urine Urobilinogen Normal mg/dL (0.2-1.0) 02/04/19 16:49 Ur Leukocyte Esterase Neg Zoe/uL (Negative) 02/04/19 16:49 Urine WBC (Auto) < 1 /hpf (0-5) 02/04/19 16:49 Urine RBC (Auto) 1 /hpf (0-3) 02/04/19 16:49 Ur Squamous Epith Cells < 1 /hpf (0-5) 02/04/19 16:49 - CT Scan/US Abdomen/Pelvis CT Other Rad Studies (CT/US): Interpreted By Me, Read By Radiologist CT/US Interpretation: EXAM: CT Abdomen and Pelvis with IV contrast. CLINICAL HISTORY: Left sided abd pain stomach surgery nov 2017. TECHNIQUE: Axial computed tomography images of the abdomen and pelvis with intravenous contrast. 0.00 mGy-cm. CONTRAST: With; 100MLS OMNI 350. COMPARISON: None provided. FINDINGS: LUNG BASES: There is no consolidation or atelectasis. There is mild scarring at the lung bases. LIVER: Multiple cysts within the liver large cyst within the right lobe measures 3.1 x 2.5 cm. GALLBLADDER AND BILE DUCTS: Gallbladder is distended and contains some sludge. There is some prominence of the biliary duct system. PANCREAS: Unremarkable. SPLEEN: Unremarkable. ADRENAL GLANDS: Unremarkable. KIDNEYS, URETERS, AND BLADDER: The kidneys appear within normal limits. Prominent right extrarenal pelvis noted. There is no hydronephrosis or hydroureter. No urinary calculi are seen. STOMACH AND BOWEL: Postsurgical changes are seen in the region of the stomach with evidence of a gastroenteric anastomosis. There is some moderately distended fluid-filled loops of small bowel at the left upper abdomen these are nonspecific in nature. Moderate sized ventral hernia is noted. APPENDIX: No evidence of acute appendicitis on CT examination. PERITONEUM: No free fluid. No free air. LYMPH NODES: No lymphadenopathy is evident. REPRODUCTIVE: Unremarkable as visualized. VASCULATURE: No evidence of abdominal aortic aneurysm. BONES: No aggressive appearing osseous lesion. No acute osseous pathology evident. IMPRESSION: Mild scarring at the lung bases. Multiple liver cysts largest within the right lobe measuring 3.1 x 2.5 cm. Distended gallbladder containing sludge. Some prominence of the biliary duct system. Postoperative changes left upper abdomen with a gastroenteric anastomosis and moderately distended fluid- filled loops of small bowel at the left side of the abdomen. Moderate sized ventral hernia present. Clinical correlation advised. Correlation with dedicated contrast study of the upper gastrointestinal tract may be considered. . Electronically signed on Feb 04, 2019 7:30:16 PM EDT by: Oniel Self M.D., Certified by [facility], Diagnostic Radiology <Germaine Gonzales - Last Filed: 02/04/19 20:45> Medical Decision Making Medical Decision Making: Impression: 63 year old female sent to ED by her PMD for evaluation of left lower quadrant tenderness. Plan: Abdomen/Pelvis CT ordered for patient Labs ordered with CMP, CBC, blood culture, urine culture, and UA Patient given morphine, pepcid, iv fluids, and zofran <Moise Horne DO - Last Filed: 02/04/19 18:57> Medical Decision Making: CT result reviewed and discussed with patient. Patient states that she feels much better after receiving morphine. She is no longer tender on exam. Spoke to the patient about admission for abdominal pain especially given history of abdominal surgery last year and presence of enlarged, fluid-filled bowel loops on CT today. Patient states that she does not want to stay in the hospital. Case discussed with Dr. Woo, patient's PMD who evaluated the patient earlier today and sent her here to the ED. States that since patient feels better she can be discharged, can follow up as outpatient. Patient advised to return immediately should her symptoms worsen. She verbalizes understanding. <Germaine Gonzales - Last Filed: 02/04/19 20:45> Disposition <Moise Horne DO - Last Filed: 02/04/19 18:57> - Disposition Disposition Time: 20:15 <Germaine Gonzales - Last Filed: 02/04/19 20:45> - Disposition Referrals: Jaime Woo MD [Staff Provider] - Disposition: HOME/ ROUTINE Condition: GOOD Additional Instructions: ZAID ASTUDILLO, thank you for letting us take care of you today. Your provider was Germaine Gonzales MD and you were treated for SENT BY PMD/EVAL. The emergency medical care you received today was directed at your acute symptoms. If you were prescribed any medication, please fill it and take as directed. It may take several days for your symptoms to resolve. Return to the Emergency Department if your symptoms worsen, do not improve, or if you have any other problems. Please contact your doctor or call one of the physicians/clinics you have been referred to that are listed on the Patient Visit Information form that is included in your discharge packet. Bring any paperwork you were given at discharge with you along with any medications you are taking to your follow up visit. Our treatment cannot replace ongoing medical care by a primary care provider outside of the emergency department. Thank you for allowing the [facility] team to be part of your care today. If you had an X-Ray or CT scan: A Radiologist will review the ED reading if any change in treatment is needed we will contact you. If you had a blood, urine, or wound culture: It will take several days for the results, if any change in treatment is needed we will contact you. If you had an STI test: It will take 48 hours for the results. Please call after 1 week if you have not heard back. Instructions: Acute Abdomen (Belly Pain), Adult (DC) Forms: [facility] (Spanish) - Clinical Impression Clinical Impression: Abdominal pain - Scribe Statement The provider has reviewed the documentation as recorded by the Scribe (Kallie Salomon) All medical record entries made by the Scribe were at my direction and personally dictated by me. I have reviewed the chart and agree that the record accurately reflects my personal performance of the history, physical exam, medical decision making, and the department course for this patient. I have also personally directed, reviewed, and agree with the discharge instructions and disposition. <Moise Horne DO - Last Filed: 02/04/19 18:57>
[2019-02-04 19:24] VITALS: PULSE 74
[2019-02-04 20:14] VITALS: BP 121/74; RESP 20; TEMP 98.8; O2SAT 97
--- NOTE | 2019-02-05 09:20 | CT ---
Date of service: 02/04/2019 PROCEDURE: CT Abdomen and Pelvis with contrast HISTORY: left sided abdominal pain COMPARISON: 12/27/2017. TECHNIQUE: CT scan of the abdomen and pelvis was performed after administration of intravenous contrast. Oral contrast was not administered. Coronal and sagittal reformatted images were obtained. Contrast dose: 100 mL Omnipaque 350 Radiation dose: Total exam DLP = 316.71 mGy-cm. This CT exam was performed using one or more of the following dose reduction techniques: Automated exposure control, adjustment of the mA and/or kV according to patient size, and/or use of iterative reconstruction technique. FINDINGS: LOWER THORAX: The visualized lungs are clear. LIVER: Mild hepatomegaly and fatty liver. There are multiple variable size simple cysts in the liver, the largest in the right hepatic lobe measures 3.0 x 2.6 cm. GALLBLADDER AND BILE DUCTS: The gallbladder is over distended. No calcified gallstones, wall thickening or pericholecystic fluid. There is moderate diffuse dilatation of the common bile duct which measures 15 PANCREAS: Normal in size with homogeneous enhancement. No gross lesion or ductal dilatation. SPLEEN: Normal in size and appearance. ADRENALS: No discrete nodule. KIDNEYS AND URETERS: Normal in size with homogeneous enhancement. There is a small subcentimeter simple cyst in the lower pole of the right kidney. No hydronephrosis. No solid mass. VASCULATURE: No aortic aneurysm. There are no aortic atherosclerotic calcifications or mural plaque present. BOWEL: Evaluation of the bowel is limited in the absence of oral contrast. There are postsurgical changes of Billroth II gastrojejunostomy. There is mild dilatation of fluid-filled small bowel loops at the anastomotic site. The colon is grossly normal in appearance. There is mild sigmoid diverticulosis without CT for no bowel wall thickening or obstruction. APPENDIX: Normal appendix. PERITONEUM: No free fluid. No free air. LYMPH NODES: No enlarged lymph nodes. BLADDER: Well distended and normal in appearance. REPRODUCTIVE: The uterus is retroverted and enlarged there is a apparent large low-attenuation mass fundus which may represent cystic degeneration in a fibroid not significantly changed since the prior examination from December 2017. There is an apparent 2.1 x 2.4 cm cyst with peripheral coarse calcifications in the right. BONES: No acute fracture. Within normal limits for the patient's age. OTHER FINDINGS: There is a large supraumbilical ventral hernia containing nonobstructed transverse colon. IMPRESSION: 1. status post Billroth 2 gastrojejunostomy, mild dilatation of fluid-filled small bowel loops at the anastomotic site. 2. Mild sigmoid diverticulosis without CT evidence for acute diverticulitis. Large supraumbilical ventral hernia containing transverse colon. 3. Stable multiple hepatic cysts, the largest in the right hepatic lobe measures 3.0 cm. 4. Gallbladder distention and moderate diffuse dilatation of the common bile duct which measures 13 mm. Please correlate with right upper quadrant ultrasound. 5. Suspect cystic degeneration of large uterine fundal fibroid and 2.4 cm complicated cyst in the right ovary. Please correlate with pelvic ultrasound. A preliminary report was provided by [facility]. The final report is tagged to the PA review folder.
== END 2019-02-04 20:22 | disposition home or self-care (01) ==
LOC: C.ER 15:21
DX: R10.9 Unspecified abdominal pain (principal); Z72.0 Tobacco use
CPT/HCPCS: 74177; 80053; 81001; 83690; 85025; 87040; 87086; 96374; 96375; 99284; J2270; J2405; J7030; Q9967